=== PATIENT | male | born 1970 | race Caucasian/White ===

== ENCOUNTER 2017-11-25 22:25 | Observation (INO) ==
[2017-11-25] MEDS ORDERED: NS 1000 ML 1,000 ML ONE (22:40)
[2017-11-25] MEDS ORDERED: NS 1000 ML 1,000 ML IV ONE (23:13)
[2017-11-25 23:18] LABS: BASOPHILS # (AUTO) 0.1 X10^3/uL (0.0-0.1); BASOPHILS % (AUTO) 0.7 % (0.2-1.0); EOSINOPHILS % (AUTO) 0.2 % (0.9-2.9); HEMATOCRIT 40.7 % (42.0-54.0); HEMOGLOBIN 13.7 g/dL (13.5-18.0); LYMPHOCYTES # (AUTO) 2.6 X10^3/uL (1.3-2.9); LYMPHOCYTES % (AUTO) 18.9 % (21.0-51.0); MEAN CORPUSCULAR HEMOGLOBIN 30.4 pg (27.0-34.0); MEAN CORPUSCULAR HGB CONC 33.6 g/dL (33.0-35.0); MEAN CORPUSCULAR VOLUME 90.8 fL (80.0-100.0); MEAN PLATELET VOLUME 7.8 fL (7.4-11.0); NEUTROPHILS % (AUTO) 73.2 % (42.0-75.0); PLATELET COUNT 596 X10^3/uL (150.0-450.0); RED BLOOD COUNT 4.49 X10^6/uL (4.7-6.0); RED CELL DISTRIBUTION WIDTH 13.6 % (11.6-16.5); WHITE BLOOD COUNT 13.7 X10^3/uL (3.6-10.0)
[2017-11-25 23:41] LABS: SERUM ACETONE SMALL (NEGATIVE)
[2017-11-25 23:51] LABS: LACTIC ACID 7.1 mmol/L (0.4-2.0)
[2017-11-25 23:55] LABS: ALANINE AMINOTRANSFERASE 56 Units/L (12-78); ALBUMIN 3.2 g/dL (3.4-5.0); ALKALINE PHOSPHATASE 135 Units/L (46-116); ASPARTATE AMINO TRANSFERASE 34 Units/L (15-37); BLOOD UREA NITROGEN 22 mg/dL (7-18); CALCIUM 8.5 mg/dL (8.5-10.1); CARBON DIOXIDE 18.1 mmol/L (21-32); CHLORIDE 99 mmol/L (98-107); COR CA(FOR HYPOALB) 9.1 mg/dL (8.5-10.1); COR NA(FOR HYPERGLY) 136 mmol/L (136-145); CREATININE 1.41 mg/dL (0.70-1.30); SODIUM 135 mmol/L (136-145); TOTAL PROTEIN 6.5 g/dL (6.4-8.2); eGFR NON BLACK RACES 57 (>60)
[2017-11-25 23:58] LABS: ABG ALLEN TEST POS; ABG BASE EXCESS -2.9 mmol/L (-2.0-2.0); ABG HCO3 20.8 mmol/L (22-26)
[2017-11-26] MEDS ORDERED: NS 1000 ML 1,000 ML ONE (00:46)
[2017-11-26] MEDS ORDERED: MORPHINE SULFATE INJ 2 MG INJ IVP ONE (01:01)
[2017-11-26] MEDS ORDERED: PHENERGAN INJ 25 MG IV ONE (01:01)
--- NOTE | 2017-11-26 01:02 | DR.N/VMALE ---
HPI - Time Seen Time seen: 23:00 - Primary Care Physician Primary Care Physician: MICHAEL - HPI Comment HPI Comment: HERE VIA EMS. PATIENT HAVE LOW BACK PAIN AND IS WEAK AND SLIGHTLYY DISORIENTED. - Complaints Chief Complaint Doctors Comments: NAUSEA, VOMITING AND ELEVATED GLUCOSE. TOOK INSULIN AT HOME. Chief Complaint:: [facility] STATES, "PATIENT IS A BRITTLE INSULIN DEPENDENT DIABETIC, WHO HAS BEEN N/V FOR THE LAST WEEK AND BLOOD SUGAR VERY HIGH , WHO TOOK AN UNKNOWN AMOUNT OF INSULIN. PATIENT HAS FALLEN, C/O BACK PAIN. PATIENT HAS HAD GRADUAL WT LOSS OVER THE LAST COUPLE OF YEARS. " NOTED NO CONTUSIONS, ABRASIONS TO BACK. PATIENT SEEMS DISORIENTED SOMEWHAT, ALERT AND ATTEMPTS TO ANSWER QUESTIONS APPROPRIATELY. SKIN WARM AND DRY, FRUITY SMELL. - Reviewed Nurses Notes Reviewed: Yes - Source History Provided: Patient, EMS - Mode of Arrival Mode of Arrival: EMS - Timing Onset of Chief Complaint: 11/25/17 - Context Onset: Spontaneous Recent: None History of: Diabetes - Quality Quality: Bilious - Associated Signs and Symptoms Abdominal Pain Quality: Cramping Abdominal Pain Location: Diffuse Symptoms: Abdominal Pain PMH - PMH Past Medical History: Yes Past Medical History: Diabetes Past Surgical History: Yes Surgical History: Cholecystectomy - Family History History of Family Medical Conditions: Yes Family Medical History: Diabetes Mellitus, Cancer, [place] - Social History Does patient currently use any type of tobacco product: No Have you used tobacco products in the last 12 months: No Type of Tobacco Use: None Does any household member use tobacco: No Alcohol Use: None Do you use any recreational Drugs:: No Lives Where: Home - infectious screening Have you traveled outside the country in the last 6 months?: No Isolation: Standard ROS - Review of Systems Constitutional: Weakness, Fatigue Eyes: No Symptoms Reported ENTM: No Symptoms Reported Respiratoy: Non-Productive Cough, Short of Breath Cardiovascular: No Symptoms Reported. negative: Edema Gastrointestinal/Abdominal: Abdominal Pain, Nausea, Vomiting Genitourinary: No Symptoms Reported Neurological: Weakness Musculoskeletal: Muscle Pain Integumentary: Dryness Hematologic/Lymphatic: No Symptoms Reported Endocrine: Increased Thirst, Increased Urine. negative: [place] Psychiatric: No Symptoms Reported All Other Systems: Reviewed and Negative PE - General Limitations: Altered Mental Status General Appearance: Alert - Head Head Exam: Normal Inspection - Eyes Eye exam: Normal Appearance - ENT ENT Exam: Normal Exam - Neck Neck Exam: Normal Inspection - Chest Chest Inspection: Symmetric Chest Wall Rise - Respiratory Respiratory Exam: Normal Lung Sounds Bilat Respiratory Exam: Bilateral Rhonchi, Lower Rhonchi - Abdominal Exam Abdominal Exam: Normal Bowel Sounds, Soft. negative: Tenderness - Rectal Rectal Exam: Deferred - Exam: Male: Deferred - Extremities Extremities Exam: negative: Edema - Back Back Exam: Tenderness, Paraspinal Tenderness - Neurologic Neurological Exam: Alert, Oriented X3 (ORIENTED TO PLACE AND PERSON) - Psychiatric Psychiatric Exam: Anxious - Skin Skin Exam: Dry - Vital Signs Vitals: Temperature 98.1 F Pulse Rate [Right Brachial] 106 Pulse Rate 109 Respiratory Rate 20 Blood Pressure [Left Arm] 125/88 Blood Pressure [Right Arm] 116/83 Blood Pressure [Right Arm] 113/72 Blood Pressure 105/59 O2 Sat by Pulse Oximetry 100 MDM - Differential Diagnosis Differential Diagnosis: Considerations may Include:: Other Differential Diagnosis Comment: DKA, DEHYDRATION, GASTRITIS Course - Treatment Treatment: SEE ORSERS. - Consultation Consultation Comments: PATIENT ADMITTED BY DR. DUMONT. - Education/Counseling Educated On: Diagnosis ROR - Labs Reviewed Laboratory Results Reviewed?: Yes Result Diagrams: 11/28/17 05:50 11/28/17 05:50 - XRAY XRAY Interpreted by: Radiologist XRAY Findings: REPORT NOTED. - EKG Rhythm: ST (EKG NOTED.) - Labs Reviewed Laboratory: WBC 13.7 X10^3/uL (3.6-10.0) H 11/25/17 23:05 RBC 4.49 X10^6/uL (4.7-6.0) L 11/25/17 23:05 Hgb 13.7 g/dL (13.5-18.0) 11/25/17 23:05 Hct 40.7 % (42.0-54.0) L 11/25/17 23:05 MCV 90.8 fL (80.0-100.0) 11/25/17 23:05 MCH 30.4 pg (27.0-34.0) 11/25/17 23:05 MCHC 33.6 g/dL (33.0-35.0) 11/25/17 23:05 RDW 13.6 % (11.6-16.5) 11/25/17 23:05 Plt Count 596 X10^3/uL (150.0-450.0) H 11/25/17 23:05 MPV 7.8 fL (7.4-11.0) 11/25/17 23:05 Neut % (Auto) 73.2 % (42.0-75.0) 11/25/17 23:05 Lymph % (Auto) 18.9 % (21.0-51.0) L 11/25/17 23:05 [place] % (Auto) 7.0 % (0.0-13.0) 11/25/17 23:05 Eos % (Auto) 0.2 % (0.9-2.9) L 11/25/17 23:05 Baso % (Auto) 0.7 % (0.2-1.0) 11/25/17 23:05 Neut # (Auto) 10.0 x10^3/uL (2.2-4.8) H 11/25/17 23:05 Lymph # (Auto) 2.6 X10^3/uL (1.3-2.9) 11/25/17 23:05 [place] # (Auto) 1.0 x10^3/uL (0.3-0.8) H 11/25/17 23:05 Eos # (Auto) 0.0 x10^3/uL (0.0-0.2) 11/25/17 23:05 Baso # (Auto) 0.1 X10^3/uL (0.0-0.1) 11/25/17 23:05 Absolute Nucleated RBC 0.0 /100WBC 11/25/17 23:05 Sample Site Right radial 11/25/17 23:48 ABG pH 7.420 (7.35-7.45) 11/25/17 23:48 ABG pCO2 32.0 mmHg (35.0-45.0) L 11/25/17 23:48 ABG pO2 86.0 mmHg (80.0-100.0) 11/25/17 23:48 ABG HCO3 20.8 mmol/L (22-26) L 11/25/17 23:48 ABG O2 Saturation 97.0 % (90-100) 11/25/17 23:48 ABG Base Excess -2.9 mmol/L (-2.0-2.0) L 11/25/17 23:48 Vince Test Pos 11/25/17 23:48 A-a Gradient 24.0 mmHg 11/25/17 23:48 FiO2 21.000 11/25/17 23:48 Blood Gas Comments Greg well jts 11/25/17 23:48 Sodium 135 mmol/L (136-145) L 11/25/17 23:05 Corrected Sodium 136 mmol/L (136-145) 11/25/17 23:05 Potassium 4.2 mmol/L (3.5-5.1) 11/25/17 23:05 Chloride 99 mmol/L (98-107) 11/25/17 23:05 Carbon Dioxide 18.1 mmol/L (21-32) L 11/25/17 23:05 BUN 22 mg/dL (7-18) H 11/25/17 23:05 Creatinine 1.41 mg/dL (0.70-1.30) H 11/25/17 23:05 Est GFR (MDRD) Af Amer > 60 (>60) 11/25/17 23:05 Est GFR (MDRD) Non-Af 57 (>60) L 11/25/17 23:05 Glucose 146 mg/dL (65-99) H 11/25/17 23:05 Lactic Acid 7.1 mmol/L (0.4-2.0) H 11/25/17 23:05 Calcium 8.5 mg/dL (8.5-10.1) 11/25/17 23:05 Corrected Calcium 9.1 mg/dL (8.5-10.1) 11/25/17 23:05 Total Bilirubin 0.40 mg/dL (0.2-1.0) 11/25/17 23:05 AST 34 Units/L (15-37) 11/25/17 23:05 ALT 56 Units/L (12-78) 11/25/17 23:05 Alkaline Phosphatase 135 Units/L (46-116) H 11/25/17 23:05 C-Reactive Protein 0.50 mg/L (0-3.0) 11/25/17 23:05 Total Protein 6.5 g/dL (6.4-8.2) 11/25/17 23:05 Albumin 3.2 g/dL (3.4-5.0) L 11/25/17 23:05 Globulin 3.3 g/dL (2.5-4.5) 11/25/17 23:05 Albumin/Globulin Ratio 1.0 Ratio (1.1-2.1) L 11/25/17 23:05 Acetone, Semi-Quant Small (NEGATIVE) H 11/25/17 23:05 - Diagnosis Discharge Problem: DKA (diabetic ketoacidoses) Qualifiers: Diabetes mellitus type: type 1 Diabetes mellitus complication detail: without coma Qualified Code(s): E10.10 - Type 1 diabetes mellitus with ketoacidosis without coma - Discharge Plan Disposition: ADMITTED INPATIENT Condition: Stable
[2017-11-26] MEDS ORDERED: PHENERGAN INJ 25 MG ONE (01:04)
[2017-11-26] MEDS ORDERED: MORPHINE SULFATE INJ 2 MG INJ ONE (01:05)
[2017-11-26] MEDS ORDERED: ZOFRAN INJ 4 MG VIAL IVP ONE (02:23)
--- NOTE | 2017-11-26 03:27 | CT ---
CT abdomen pelvis without contrast Indication: Abdominal pain Findings: The lung bases are clear. There are post cholecystectomy changes. The pancreas spleen and l iver are negative. There is no obstructive uropathy or acute perinephric abnormality. There is mild s mall bowel luminal stasis without significant luminal distention. There is a moderate large rectal fecal impaction with associated constipation. The appendix is not we ll visualized however at the right lower quadrant is negative for active appearing pathology. The ske leton is negative. Impression: 1. Moderate large rectal fecal impaction with adjacent diffuse stool retention of constip ation. 2. Mild small bowel luminal stasis a sympathetic ileus is not excluded. Reported By:
[2017-11-26] MEDS: NS 1000 ML 1,000 ML IV SCH ×6 (03:34→18:11)
[2017-11-26] MEDS: HumuLIN R SC PRN ×3 (06:03→14:58)
--- NOTE | 2017-11-26 06:06 | RAD ---
Chest portable Indication shortness of breath, abdominal pain Comparison October 01, 2012 The heart and mediastinum are normal. The lungs are clear. The skeleton is unremarkable. Impression: Negative exam. Reported By:
[2017-11-26 06:07] LABS: BILIRUBIN,URINE NEGATIVE (NEGATIVE); BLOOD/HEMOGLOBIN,URINE NEGATIVE (NEGATIVE); GLUCOSE, URINE 4+ (NEGATIVE); KETONES,URINE 4+ (NEGATIVE); LEUKOCYTE ESTERASE ,URINE NEGATIVE (NEGATIVE); NITRITES,URINE NEGATIVE (NEGATIVE); PROTEIN,URINE 1+ (NEGATIVE); UROBILINOGEN,URINE NORMAL (NORMAL)
[2017-11-26 06:08] LABS: APPEARANCE,URINE CLEAR (CLEAR); COLOR,URINE YELLOW (YELLOW)
[2017-11-26 06:14] LABS: BACTERIA,URINE NEGATIVE /HPF (NEGATIVE); MUCUS,URINE FEW /HPF (NEGATIVE); RBC,URINE 0-2 /HPF (NONE SEEN); SQUAMOUS EPITHELIAL CELL,UR RARE /HPF (NEGATIVE)
[2017-11-26] MEDS: MILK OF MAGNESIA PO SCH ×2 (08:48→22:26)
[2017-11-26] MEDS: MORPHINE SULFATE INJ 2 MG INJ IVP PRN ×4 (08:49→22:26)
[2017-11-26] MEDS: ZOFRAN INJ 4 MG VIAL IVP PRN ×3 (08:50→22:26)
[2017-11-26 08:53] LABS: BASOPHILS # (AUTO) 0.1 X10^3/uL (0.0-0.1); BASOPHILS % (AUTO) 1.1 % (0.2-1.0); EOSINOPHILS # (AUTO) 0.1 x10^3/uL (0.0-0.2); EOSINOPHILS % (AUTO) 0.7 % (0.9-2.9); HEMOGLOBIN 12.7 g/dL (13.5-18.0); LYMPHOCYTES % (AUTO) 31.1 % (21.0-51.0); MEAN CORPUSCULAR HGB CONC 34.2 g/dL (33.0-35.0); MEAN CORPUSCULAR VOLUME 90.6 fL (80.0-100.0); MEAN PLATELET VOLUME 7.4 fL (7.4-11.0); MONOCYTES % (AUTO) 8.1 % (0.0-13.0); NEUTROPHILS # (AUTO) 7.6 x10^3/uL (2.2-4.8); PLATELET COUNT 508 X10^3/uL (150.0-450.0); RED BLOOD COUNT 4.08 X10^6/uL (4.7-6.0); RED CELL DISTRIBUTION WIDTH 13.7 % (11.6-16.5); WHITE BLOOD COUNT 12.9 X10^3/uL (3.6-10.0)
[2017-11-26 09:08] LABS: ALANINE AMINOTRANSFERASE 44 Units/L (12-78); ALBUMIN 2.8 g/dL (3.4-5.0); ALKALINE PHOSPHATASE 107 Units/L (46-116); ASPARTATE AMINO TRANSFERASE 27 Units/L (15-37); BLOOD UREA NITROGEN 13 mg/dL (7-18); CARBON DIOXIDE 22.7 mmol/L (21-32); CHLORIDE 102 mmol/L (98-107); COR NA(FOR HYPERGLY) 137 mmol/L (136-145); CREATININE 1.06 mg/dL (0.70-1.30); SODIUM 136 mmol/L (136-145); TOTAL PROTEIN 5.8 g/dL (6.4-8.2); eGFR NON BLACK RACES > 60 (>60)
--- NOTE | 2017-11-26 11:33 | DR.H&P ---
H&P - History & Physical for Day of: H&P Date: 11/26/17 - Chief Complaint Chief Complaint: ELEVATED BLOOD SUGAR, ADBOMINAL PAIN - History of Present Illness History of Present Illness: 47 [facility] ER ADMISSION PER EMS STATES, "PATIENT IS A BRITTLE INSULIN DEPENDENT DIABETIC, WHO HAS BEEN N/V FOR THE LAST WEEK AND BLOOD SUGAR VERY HIGH , WHO TOOK AN UNKNOWN AMOUNT OF INSULIN. PATIENT HAS FALLEN, C/O BACK PAIN. PATIENT HAS HAD GRADUAL WT LOSS OVER THE LAST COUPLE OF YEARS. " NOTED NO CONTUSIONS, ABRASIONS TO BACK. PATIENT SEEMS DISORIENTED SOMEWHAT, ALERT AND ATTEMPTS TO ANSWER QUESTIONS APPROPRIATELY. SKIN WARM AND DRY, FRUITY SMELL. PT ADMITTED FOR FURTHER EVALUATION, IV HYDRATION, BLOOD SUGAR CONTROL TREATMENT OF ABDOMINAL PAIN AND N/V. - Past Medical History Past Medical History: Diabetes Additional Medical History: Opiate abuse, Diabetic Neuropathy - Past Surgical History Surgical History: Cholecystectomy - Family History Family Medical History: Diabetes Mellitus, Cancer, [place] - Social History Does patient currently use any type of tobacco product: No Have you used tobacco products in the last 12 months: No Type of Tobacco Use: None How many years tobacco product used: 30 Does any household member use tobacco: No Alcohol Use: None Drug Use: None - Medications Home Medications: No Known Drug Allergies Allergy (Verified 11/25/17 22:52) CONTINUE taking the following medications insulin detemir U-100 [Levemir U-100 Insulin] 15 unit SUB-Q DAILY 11/26/17 [ History] temazepam [Restoril] 30 mg PO HS PRN 11/26/17 [History] - Review of Systems Constitutional: Weakness Eyes: No Symptoms Reported ENT: No Symptoms Reported Respiratory: No Symptoms Reported Cardiovascular: No Symptoms Reported Gastrointestinal: Nausea, Vomiting, Abdominal Pain, Constipation Genitourinary: Frequency Musculoskeletal: Back Pain Skin: No Symptoms Reported Neurological: Weakness - Physical Exam Vital Signs: Temperature 98.9 F Pulse Rate [Right Brachial] 100 Pulse Rate 109 Respiratory Rate 18 Blood Pressure [Left Arm] 125/88 Blood Pressure [Right Arm] 105/58 Blood Pressure [Right Arm] 113/72 Blood Pressure 105/59 O2 Sat by Pulse Oximetry 99 Oriented: Normal Eyes: Normal Ear: Normal Nose: Normal Throat: Dry Respiratory: RLL Diminished, LLL Diminished Cardiovascular: Normal. negative: Edema : Normal Auscultation: Bowel Sounds: Decreased Tenderness: Epigastric, Periumbilical, Suprapubic Skin: Decreased Turgur Musculoskeletal: Back:Lumbar Psychiatric: Anxiety Affect: Anxious Speech Pattern: Clear, Appropriate - Assessment/Plan (1) Abdominal pain Status: Acute Plan: ADMIT IV HYDRATION. PAIN AND NAUSEA CONTROL, CT ABD DONE IN ER. BLOOD SUGAR CONTROL. ICU, CARDIAC MONITORING, ACETONE LEVELS. REPEAT LACTIC ACID, BLOOD CULTURES, AM KUB. TREAT CONSITIPATION, IV ZOSYN (2) DKA (diabetic ketoacidoses) Status: Acute (3) Anxiety Status: Chronic (4) Diabetes mellitus Status: Chronic - Allergies Allergies/Adverse Reactions: Allergies Allergy/AdvReac Type Severity Reaction Status Date / Time No Known Drug Allergies Allergy Verified 11/25/17 22:52
[2017-11-26] MEDS ORDERED: ZOSYN VIAL 3.375 GRAMS IV ONE (12:34)
[2017-11-26] MEDS ORDERED: NS 100 ML IV + SPIKE MINIBAG* 100 ML IV ONE (12:34)
[2017-11-26] MEDS: PROTONIX INJ 40 MG VIAL IVP SCH (12:42)
[2017-11-26] MEDS: ZOSYN VIAL 3.375 GRAMS 3.375 G in NS 100 ML IV + SPIKE MINIBAG* 100 ML IV SCH ×2 (13:04→22:25)
[2017-11-26 13:14] LABS: BILIRUBIN,URINE NEGATIVE (NEGATIVE); BLOOD/HEMOGLOBIN,URINE NEGATIVE (NEGATIVE); GLUCOSE, URINE 4+ (NEGATIVE); KETONES,URINE 4+ (NEGATIVE); LEUKOCYTE ESTERASE ,URINE NEGATIVE (NEGATIVE); NITRITES,URINE NEGATIVE (NEGATIVE); PROTEIN,URINE NEGATIVE (NEGATIVE); UROBILINOGEN,URINE NORMAL (NORMAL)
[2017-11-26 13:15] LABS: APPEARANCE,URINE CLEAR (CLEAR); COLOR,URINE YELLOW (YELLOW)
[2017-11-26 21:37] VITALS: BMI 19.0
[2017-11-26] MEDS: COLACE CAP 100 MG PO SCH (22:26)
[2017-11-27] MEDS: NS 1000 ML 1,000 ML IV SCH ×5 (01:30→16:45)
[2017-11-27] MEDS: HumuLIN R SC PRN ×3 (03:30→18:13)
[2017-11-27] MEDS: MORPHINE SULFATE INJ 2 MG INJ IVP PRN ×5 (03:37→23:32)
[2017-11-27 05:16] LABS: BASOPHILS # (AUTO) 0.1 X10^3/uL (0.0-0.1); BASOPHILS % (AUTO) 1.2 % (0.2-1.0); EOSINOPHILS # (AUTO) 0.1 x10^3/uL (0.0-0.2); EOSINOPHILS % (AUTO) 0.7 % (0.9-2.9); HEMATOCRIT 39.6 % (42.0-54.0); HEMOGLOBIN 13.3 g/dL (13.5-18.0); LYMPHOCYTES # (AUTO) 2.2 X10^3/uL (1.3-2.9); LYMPHOCYTES % (AUTO) 22.3 % (21.0-51.0); MEAN CORPUSCULAR HGB CONC 33.5 g/dL (33.0-35.0); MEAN CORPUSCULAR VOLUME 92.3 fL (80.0-100.0); MEAN PLATELET VOLUME 7.9 fL (7.4-11.0); MONOCYTES # (AUTO) 0.5 x10^3/uL (0.3-0.8); MONOCYTES % (AUTO) 4.8 % (0.0-13.0); PLATELET COUNT 403 X10^3/uL (150.0-450.0); RED BLOOD COUNT 4.29 X10^6/uL (4.7-6.0); RED CELL DISTRIBUTION WIDTH 13.4 % (11.6-16.5); WHITE BLOOD COUNT 9.8 X10^3/uL (3.6-10.0)
[2017-11-27 05:21] LABS: ALANINE AMINOTRANSFERASE 42 Units/L (12-78); ALBUMIN 2.8 g/dL (3.4-5.0); ALKALINE PHOSPHATASE 107 Units/L (46-116); ASPARTATE AMINO TRANSFERASE 33 Units/L (15-37); BLOOD UREA NITROGEN 10 mg/dL (7-18); CALCIUM 7.8 mg/dL (8.5-10.1); CARBON DIOXIDE 23.4 mmol/L (21-32); CHLORIDE 101 mmol/L (98-107); COR CA(FOR HYPOALB) 8.8 mg/dL (8.5-10.1); COR NA(FOR HYPERGLY) 140 mmol/L (136-145); CREATININE 0.79 mg/dL (0.70-1.30); SODIUM 135 mmol/L (136-145); eGFR NON BLACK RACES > 60 (>60)
[2017-11-27] MEDS: ZOSYN VIAL 3.375 GRAMS 3.375 G in NS 100 ML IV + SPIKE MINIBAG* 100 ML IV SCH ×3 (05:45→21:49)
--- NOTE | 2017-11-27 07:47 | RAD ---
Examination: KUB History: Pain and constipation Comparison reference abdomen CT, 11/26/2017 Findings: There is relative excess of fecal material in the left colon without definite obstruction o r mass formation. No visceral enlargement is noted. There are surgical clips in the right upper quadr ant. Impression: No definite obstruction or ileus. Suspect constipation. Correlate with history. Reported By:
[2017-11-27] MEDS: PROTONIX INJ 40 MG VIAL IVP SCH (08:36)
[2017-11-27] MEDS: MILK OF MAGNESIA PO SCH ×2 (08:36→21:49)
[2017-11-27] MEDS: ZOFRAN INJ 4 MG VIAL IVP PRN ×2 (08:41→18:57)
[2017-11-27] MEDS: COLACE CAP 100 MG PO SCH (21:49)
[2017-11-28] MEDS: NS 1000 ML 1,000 ML IV SCH (01:33)
[2017-11-28] MEDS: HumuLIN R SC PRN (01:48)
[2017-11-28] MEDS: ZOFRAN INJ 4 MG VIAL IVP PRN ×2 (01:48→09:21)
[2017-11-28] MEDS: MORPHINE SULFATE INJ 2 MG INJ IVP PRN ×2 (05:37→09:20)
[2017-11-28] MEDS: ZOSYN VIAL 3.375 GRAMS 3.375 G in NS 100 ML IV + SPIKE MINIBAG* 100 ML IV SCH (05:37)
--- NOTE | 2017-11-28 05:58 | RAD ---
The Examination: KUB History: Pain, constipation Comparison reference 11/27/2017 Findings: There is slight interval increase in nonobstructive gaseous distention of small and large b owel. No excessive feces is now noted. Surgical clips right upper abdomen. No mass formation or free fluid identified. Impression: Mild nonobstructive intestinal distention. The Reported By:
[2017-11-28 06:25] LABS: BASOPHILS # (AUTO) 0.1 X10^3/uL (0.0-0.1); BASOPHILS % (AUTO) 0.7 % (0.2-1.0); EOSINOPHILS # (AUTO) 0.1 x10^3/uL (0.0-0.2); EOSINOPHILS % (AUTO) 1.1 % (0.9-2.9); HEMATOCRIT 36.7 % (42.0-54.0); HEMOGLOBIN 12.6 g/dL (13.5-18.0); LYMPHOCYTES # (AUTO) 2.6 X10^3/uL (1.3-2.9); LYMPHOCYTES % (AUTO) 34.1 % (21.0-51.0); MEAN CORPUSCULAR HEMOGLOBIN 31.1 pg (27.0-34.0); MEAN CORPUSCULAR HGB CONC 34.3 g/dL (33.0-35.0); MEAN CORPUSCULAR VOLUME 90.7 fL (80.0-100.0); MEAN PLATELET VOLUME 7.7 fL (7.4-11.0); MONOCYTES # (AUTO) 0.5 x10^3/uL (0.3-0.8); MONOCYTES % (AUTO) 6.9 % (0.0-13.0); NEUTROPHILS # (AUTO) 4.4 x10^3/uL (2.2-4.8); NEUTROPHILS % (AUTO) 57.2 % (42.0-75.0); PLATELET COUNT 397 X10^3/uL (150.0-450.0); RED BLOOD COUNT 4.05 X10^6/uL (4.7-6.0); RED CELL DISTRIBUTION WIDTH 13.4 % (11.6-16.5); WHITE BLOOD COUNT 7.7 X10^3/uL (3.6-10.0)
[2017-11-28 06:27] LABS: SERUM ACETONE SMALL (NEGATIVE)
[2017-11-28 06:46] LABS: LACTIC ACID 1.3 mmol/L (0.4-2.0)
[2017-11-28 07:05] LABS: ALANINE AMINOTRANSFERASE 33 Units/L (12-78); ALBUMIN 2.7 g/dL (3.4-5.0); ALKALINE PHOSPHATASE 94 Units/L (46-116); ASPARTATE AMINO TRANSFERASE 23 Units/L (15-37); BLOOD UREA NITROGEN 8 mg/dL (7-18); CALCIUM 8.1 mg/dL (8.5-10.1); CARBON DIOXIDE 25.6 mmol/L (21-32); CHLORIDE 103 mmol/L (98-107); COR CA(FOR HYPOALB) 9.1 mg/dL (8.5-10.1); COR NA(FOR HYPERGLY) 136 mmol/L (136-145); CREATININE 0.62 mg/dL (0.70-1.30); SODIUM 135 mmol/L (136-145); TOTAL PROTEIN 5.5 g/dL (6.4-8.2); eGFR NON BLACK RACES > 60 (>60)
[2017-11-28] MEDS: PROTONIX INJ 40 MG VIAL IVP SCH (09:14)
[2017-11-28] MEDS: MILK OF MAGNESIA PO SCH (09:15)
[2017-11-28 09:28] VITALS: BP 115/77
--- NOTE | 2017-12-04 08:17 | PCM.DCPLAN ---
Discharge Summary - Admission Date Date of Admission: 11/26/17 - Discharge Date Discharge Date: 11/28/17 - Admission Diagnoses (1) Abdominal pain Status: Acute (2) DKA (diabetic ketoacidoses) Status: Acute (3) Diabetes mellitus Status: Chronic - Discharge Diagnoses Discharge Diagnosis: SAME ADMISSION DIAGNOSIS - Discharge Medications Discharge Medications: Home Medication List insulin detemir U-100 [Levemir U-100 Insulin] 15 unit SUB-Q DAILY 11/26/17 [ History] temazepam [Restoril] 30 mg PO HS PRN 11/26/17 [History] Prescriptions: - Hospital Course Vital Signs: Temperature 98.8 F Pulse Rate [Right Brachial] 82 Pulse Rate 109 Respiratory Rate 15 Blood Pressure [Left Arm] 115/77 Blood Pressure [Right Arm] 124/75 Blood Pressure [Right Arm] 113/72 Blood Pressure 105/59 O2 Sat by Pulse Oximetry 98 Latest Lab Results: Laboratory Last Values WBC 7.7 X10^3/uL (3.6-10.0) 11/28/17 05:50 RBC 4.05 X10^6/uL (4.7-6.0) L 11/28/17 05:50 Hgb 12.6 g/dL (13.5-18.0) L 11/28/17 05:50 Hct 36.7 % (42.0-54.0) L 11/28/17 05:50 MCV 90.7 fL (80.0-100.0) 11/28/17 05:50 MCH 31.1 pg (27.0-34.0) 11/28/17 05:50 MCHC 34.3 g/dL (33.0-35.0) 11/28/17 05:50 RDW 13.4 % (11.6-16.5) 11/28/17 05:50 Plt Count 397 X10^3/uL (150.0-450.0) 11/28/17 05:50 MPV 7.7 fL (7.4-11.0) 11/28/17 05:50 Neut % (Auto) 57.2 % (42.0-75.0) 11/28/17 05:50 Lymph % (Auto) 34.1 % (21.0-51.0) 11/28/17 05:50 [place] % (Auto) 6.9 % (0.0-13.0) 11/28/17 05:50 Eos % (Auto) 1.1 % (0.9-2.9) 11/28/17 05:50 Baso % (Auto) 0.7 % (0.2-1.0) 11/28/17 05:50 Neut # (Auto) 4.4 x10^3/uL (2.2-4.8) 11/28/17 05:50 Lymph # (Auto) 2.6 X10^3/uL (1.3-2.9) 11/28/17 05:50 [place] # (Auto) 0.5 x10^3/uL (0.3-0.8) 11/28/17 05:50 Eos # (Auto) 0.1 x10^3/uL (0.0-0.2) 11/28/17 05:50 Baso # (Auto) 0.1 X10^3/uL (0.0-0.1) 11/28/17 05:50 Absolute Nucleated RBC 0.0 /100WBC 11/28/17 05:50 Sample Site Right radial 11/25/17 23:48 ABG pH 7.420 (7.35-7.45) 11/25/17 23:48 ABG pCO2 32.0 mmHg (35.0-45.0) L 11/25/17 23:48 ABG pO2 86.0 mmHg (80.0-100.0) 11/25/17 23:48 ABG HCO3 20.8 mmol/L (22-26) L 11/25/17 23:48 ABG O2 Saturation 97.0 % (90-100) 11/25/17 23:48 ABG Base Excess -2.9 mmol/L (-2.0-2.0) L 11/25/17 23:48 Vince Test Pos 11/25/17 23:48 A-a Gradient 24.0 mmHg 11/25/17 23:48 FiO2 21.000 11/25/17 23:48 Blood Gas Comments Greg well jts 11/25/17 23:48 Sodium 135 mmol/L (136-145) L 11/28/17 05:50 Corrected Sodium 136 mmol/L (136-145) 11/28/17 05:50 Potassium 3.9 mmol/L (3.5-5.1) 11/28/17 05:50 Chloride 103 mmol/L (98-107) 11/28/17 05:50 Carbon Dioxide 25.6 mmol/L (21-32) 11/28/17 05:50 BUN 8 mg/dL (7-18) 11/28/17 05:50 Creatinine 0.62 mg/dL (0.70-1.30) L 11/28/17 05:50 Est GFR (MDRD) Af Amer > 60 (>60) 11/28/17 05:50 Est GFR (MDRD) Non-Af > 60 (>60) 11/28/17 05:50 Glucose 156 mg/dL (65-99) H 11/28/17 05:50 POC Glucose (mg/dL) 142 mg/dL (65-99) H 11/28/17 05:33 Lactic Acid 1.3 mmol/L (0.4-2.0) 11/28/17 05:50 Calcium 8.1 mg/dL (8.5-10.1) L 11/28/17 05:50 Corrected Calcium 9.1 mg/dL (8.5-10.1) 11/28/17 05:50 Total Bilirubin 0.60 mg/dL (0.2-1.0) 11/28/17 05:50 AST 23 Units/L (15-37) 11/28/17 05:50 ALT 33 Units/L (12-78) 11/28/17 05:50 Alkaline Phosphatase 94 Units/L (46-116) 11/28/17 05:50 C-Reactive Protein 0.50 mg/L (0-3.0) 11/25/17 23:05 Total Protein 5.5 g/dL (6.4-8.2) L 11/28/17 05:50 Albumin 2.7 g/dL (3.4-5.0) L 11/28/17 05:50 Globulin 2.8 g/dL (2.5-4.5) 11/28/17 05:50 Albumin/Globulin Ratio 1.0 Ratio (1.1-2.1) L 11/28/17 05:50 Specimen Type Clean catch urine 11/26/17 12:50 Urine Color Yellow (YELLOW) 11/26/17 12:50 Urine Appearance Clear (CLEAR) 11/26/17 12:50 Urine pH 5.0 (5.0 - 8.0) 11/26/17 12:50 Ur Specific [place] 1.025 (1.000-1.030) 11/26/17 12:50 Urine Protein Negative (NEGATIVE) 11/26/17 12:50 Urine Glucose (UA) 4+ (NEGATIVE) 11/26/17 12:50 Urine Ketones 4+ (NEGATIVE) 11/26/17 12:50 Urine Occult Blood Negative (NEGATIVE) 11/26/17 12:50 Urine Nitrite Negative (NEGATIVE) 11/26/17 12:50 Urine Bilirubin Negative (NEGATIVE) 11/26/17 12:50 Urine Urobilinogen Normal (NORMAL) 11/26/17 12:50 Ur Leukocyte Esterase Negative (NEGATIVE) 11/26/17 12:50 Urine RBC 0-2 /HPF (NONE SEEN) 11/26/17 06:00 Urine WBC 0-2 /HPF (NONE SEEN) 11/26/17 06:00 Ur Squamous Epith Cells Rare /HPF (NEGATIVE) 11/26/17 06:00 Urine Bacteria Negative /HPF (NEGATIVE) 11/26/17 06:00 Urine Mucus Few /HPF (NEGATIVE) 11/26/17 06:00 Ur Culture Indicated? No/not indicated 11/26/17 06:00 Acetone, Semi-Quant Small (NEGATIVE) H 11/28/17 05:50 Hospital Course: 47 [facility] ER ADMISSION PER EMS STATES, "PATIENT IS A BRITTLE INSULIN DEPENDENT DIABETIC, WHO HAS BEEN N/V FOR THE LAST WEEK AND BLOOD SUGAR VERY HIGH , WHO TOOK AN UNKNOWN AMOUNT OF INSULIN. PATIENT HAS FALLEN, C/O BACK PAIN. PATIENT HAS HAD GRADUAL WT LOSS OVER THE LAST COUPLE OF YEARS. " NOTED NO CONTUSIONS, ABRASIONS TO BACK. PATIENT SEEMS DISORIENTED SOMEWHAT, ALERT AND ATTEMPTS TO ANSWER QUESTIONS APPROPRIATELY. SKIN WARM AND DRY, FRUITY SMELL. PT ADMITTED FOR FURTHER EVALUATION, IV HYDRATION, BLOOD SUGAR CONTROL TREATMENT OF ABDOMINAL PAIN AND N/V. PATIENT ON 11/28/17 SIGNED OUT AMA. - Discharge Plan Disposition: 07 AGAINST MEDICAL ADVICE Condition: Stable - Follow ups/Referrals Follow ups/Referrals: JOSUE RODRIGUEZ [STAFF PHYSICIAN] - 3 days ELVA DUMONT [Primary Care Provider] - 1 WEEK - Instructions
== END 2017-11-28 10:36 | disposition left against medical advice (07) ==
LOC: ER 22:30 → MED/SURG 22:30 → ICU 11-26 12:09
PROVIDERS: ADMIT Internal Medicine; ATTEND Internal Medicine
DX: M54.89 Other dorsalgia; E10.10 Type 1 diabetes mellitus with ketoacidosis without coma; E86.0 Dehydration
CPT/HCPCS: 36415; 36600; 70544; 71010; 71045; 74000; 74018; 74176; 80053; 81001; 81003; 82009; 82803; 83605; 85025; 86140; 87040; 93005; 93010; 96365; 96367; 96374; 96375; 99284; A4222; C9113; G0378; J1815; J2270; J2405; J2543; J2550; J7030; J7050

== ENCOUNTER 2019-03-07 19:39 | Inpatient (IN) ==
[2019-03-07] MEDS ORDERED: NS 1000 ML 1,000 ML IV ONE ×2 (20:10→22:10)
[2019-03-07] MEDS ORDERED: NS 1000 ML 1,000 ML ONE ×2 (20:11→22:19)
[2019-03-07] MEDS ORDERED: ZOFRAN INJ 4 MG VIAL ONE (20:11)
[2019-03-07] MEDS ORDERED: ZOFRAN INJ 4 MG VIAL IVP ONE (20:11)
[2019-03-07] MEDS ORDERED: HumuLIN R IV ONE (20:12)
[2019-03-07 20:16] LABS: BASOPHILS # (AUTO) 0.1 X10^3/uL (0.0-0.1); BASOPHILS % (AUTO) 0.5 % (0.2-1.0); EOSINOPHILS % (AUTO) 0.3 % (0.9-2.9); HEMATOCRIT 47.8 % (42.0-54.0); LYMPHOCYTES % (AUTO) 29.9 % (21.0-51.0); MEAN CORPUSCULAR HEMOGLOBIN 31.9 pg (27.0-34.0); MEAN CORPUSCULAR HGB CONC 31.3 g/dL (33.0-35.0); MEAN CORPUSCULAR VOLUME 101.9 fL (80.0-100.0); MEAN PLATELET VOLUME 7.9 fL (7.4-11.0); MONOCYTES # (AUTO) 0.6 x10^3/uL (0.3-0.8); NEUTROPHILS # (AUTO) 6.4 x10^3/uL (2.2-4.8); NEUTROPHILS % (AUTO) 63.3 % (42.0-75.0); PLATELET COUNT 588 X10^3/uL (150.0-450.0); RED CELL DISTRIBUTION WIDTH 13.5 % (11.6-16.5); WHITE BLOOD COUNT 10.2 X10^3/uL (3.6-10.0)
[2019-03-07 20:28] LABS: ALANINE AMINOTRANSFERASE 124 Units/L (12-78); ALBUMIN 3.8 g/dL (3.4-5.0); ALKALINE PHOSPHATASE 221 Units/L (46-116); ASPARTATE AMINO TRANSFERASE 61 Units/L (15-37); BLOOD UREA NITROGEN 30 mg/dL (7-18); CALCIUM 9.9 mg/dL (8.5-10.1); CHLORIDE 82 mmol/L (98-107); CREATININE 1.67 mg/dL (0.70-1.30); SODIUM 127 mmol/L (136-145); TOTAL PROTEIN 7.8 g/dL (6.4-8.2); eGFR NON BLACK RACES 47 (>60)
[2019-03-07 20:37] LABS: CARBON DIOXIDE 7.5 mmol/L (21-32)
--- NOTE | 2019-03-07 20:42 | DR.GENAD ---
HPI - PCP Primary Care Physician: NONE - HPI Comment HPI Comment: He started feeling sick this morning and started throwing up this afternoon; he cannot remember if he had his insulin today; no cp, fevers, chills or diarrhea; he has had [place] episodes of [place] [facility] [place] was diagnosed six [place] ago - Complaint/Symptoms Chief Complaint:: DKA Self Treatment fo Chief Complaint: NONE. - Source History Provided: Patient, Family Member - Mode of Arrival Mode of Arrival: Wheelchair - Timing Onset of Chief Complaint: 03/07/19 PMH - PMH Past Medical History: Yes Past Medical History: Diabetes Past Medical History Comment: KIDNEY ISSUES, GASTROPARESIS. PT UNSURE OF DIAGNOSIS Past Surgical History: Yes Surgical History: Cholecystectomy - Family History History of Family Medical Conditions: Yes Family Medical History: Diabetes Mellitus, Cancer, [place] - Social History Does patient currently use any type of tobacco product: Yes Have you used tobacco products in the last 12 months: Yes Type of Tobacco Use: Cigarettes How many years tobacco product used: 30 Does any household member use tobacco: Yes Alcohol Use: None Do you use any recreational Drugs:: No Lives With: Family Lives Where: Home - infectious screening In the last 2 months have you had wt loss of >10#?: NO Have you had fever, night sweats or hemotysis?: No Have you traveled outside the country in the last 6 months?: No Isolation: Standard ROS - Review of Systems Constitutional: See HPI, Malaise, Weakness Eyes: No Symptoms Reported, Eye Pain Respiratoy: No Symptoms Reported Cardiovascular: No Symptoms Reported Gastrointestinal/Abdominal: See HPI, Abdominal Pain Genitourinary: No Symptoms Reported Neurological: No Symptoms Reported Musculoskeletal: No Symptoms Reported Integumentary: No Symptoms Reported Hematologic/Lymphatic: No Symptoms Reported Endocrine: No Symptoms Reported Psychiatric: Anxiety PE - General Limitations: Other General Appearance: Other (decreased interaction) - Head Head Exam: Normal Inspection, Atraumatic - Eyes Eye exam: Normal Appearance, PERRL - ENT ENT Exam: Normal Exam - Neck Neck Exam: Normal Inspection, Full ROM - Chest Chest Inspection: Normal Inspection, Symmetric Chest Wall Rise - Respiratory Respiratory Exam: Normal Lung Sounds Bilat Respiratory Exam: Bilateral Clear to Auscultation - Cardiovascular Cardiovascular Exam: Regular Rate, Normal Rhythm - Abdominal Exam Abdominal Exam: Normal Inspection, Normal Bowel Sounds, Soft, Tenderness (diffusely) Abdominal Tenderness: Diffuse - Extremities Extremities Exam: Normal Inspection, Full ROM - Neurologic Neurological Exam: Alert - Psychiatric Psychiatric Exam: Flat Affect - Skin Skin Exam: Warm - Vital Signs Vitals: Temperature 97.2 F Pulse Rate [Left] 118 Pulse Rate 119 Respiratory Rate 31 Blood Pressure [Left Arm] 121/59 Blood Pressure 126/84 O2 Sat by Pulse Oximetry 100 Course - Reevaluation 1st: Improved (eating ice, more coherent, nausea improved) ROR - Labs Reviewed Laboratory Results Reviewed?: Yes Result Diagrams: 03/07/19 20:05 03/07/19 20:05 - Other Results Comments: Status post right subclavian catheter placement in good position with no. pneumothorax. Stable chronic lung changes with no infiltrate or effusion. - XRAY XRAY Interpreted by: Radiologist - Labs Reviewed Laboratory: WBC 10.2 X10^3/uL (3.6-10.0) H 03/07/19 20:05 RBC 4.70 X10^6/uL (4.7-6.0) 03/07/19 20:05 Hgb 15.0 g/dL (13.5-18.0) 03/07/19 20:05 Hct 47.8 % (42.0-54.0) 03/07/19 20:05 MCV 101.9 fL (80.0-100.0) H 03/07/19 20:05 MCH 31.9 pg (27.0-34.0) 03/07/19 20:05 MCHC 31.3 g/dL (33.0-35.0) L 03/07/19 20:05 RDW 13.5 % (11.6-16.5) 03/07/19 20:05 Plt Count 588 X10^3/uL (150.0-450.0) H 03/07/19 20:05 MPV 7.9 fL (7.4-11.0) 03/07/19 20:05 Neut % (Auto) 63.3 % (42.0-75.0) 03/07/19 20:05 Lymph % (Auto) 29.9 % (21.0-51.0) 03/07/19 20:05 [place] % (Auto) 6.0 % (0.0-13.0) 03/07/19 20:05 Eos % (Auto) 0.3 % (0.9-2.9) L 03/07/19 20:05 Baso % (Auto) 0.5 % (0.2-1.0) 03/07/19 20:05 Neut # (Auto) 6.4 x10^3/uL (2.2-4.8) H 03/07/19 20:05 Lymph # (Auto) 3.0 X10^3/uL (1.3-2.9) H 03/07/19 20:05 [place] # (Auto) 0.6 x10^3/uL (0.3-0.8) 03/07/19 20:05 Eos # (Auto) 0.0 x10^3/uL (0.0-0.2) 03/07/19 20:05 Baso # (Auto) 0.1 X10^3/uL (0.0-0.1) 03/07/19 20:05 Absolute Nucleated RBC 0.0 /100WBC 03/07/19 20:05 Sodium 127 mmol/L (136-145) L 03/07/19 20:05 Corrected Sodium 147 mmol/L (136-145) H 03/07/19 20:05 Potassium 4.7 mmol/L (3.5-5.1) 03/07/19 20:05 Chloride 82 mmol/L (98-107) L 03/07/19 20:05 Carbon Dioxide 7.5 mmol/L (21-32) L* 03/07/19 20:05 BUN 30 mg/dL (7-18) H 03/07/19 20:05 Creatinine 1.67 mg/dL (0.70-1.30) H 03/07/19 20:05 Est GFR (MDRD) Af Amer 57 (>60) L 03/07/19 20:05 Est GFR (MDRD) Non-Af 47 (>60) L 03/07/19 20:05 Glucose 936 mg/dL (65-99) H* 03/07/19 20:05 POC Glucose (mg/dL) > 600 mg/dL (65-99) 03/07/19 22:21 Calcium 9.9 mg/dL (8.5-10.1) 03/07/19 20:05 Corrected Calcium TNP 03/07/19 20:05 Total Bilirubin 0.70 mg/dL (0.2-1.0) 03/07/19 20:05 AST 61 Units/L (15-37) H 03/07/19 20:05 ALT 124 Units/L (12-78) H 03/07/19 20:05 Alkaline Phosphatase 221 Units/L (46-116) H 03/07/19 20:05 Total Protein 7.8 g/dL (6.4-8.2) 03/07/19 20:05 Albumin 3.8 g/dL (3.4-5.0) 03/07/19 20:05 Globulin 4.0 g/dL (2.5-4.5) 03/07/19 20:05 Albumin/Globulin Ratio 1.0 Ratio (1.1-2.1) L 03/07/19 20:05 Specimen Type Clean catch urine 03/07/19 22:03 Urine Color Pale yellow (YELLOW) 03/07/19 22: Urine Appearance Clear (CLEAR) 03/07/19 22: Urine pH 5.0 (5.0 - 8.0) 03/07/19 22:03 Ur Specific [place] 1.015 (1.000-1.030) 03/07/19 22:03 Urine Protein 2+ (NEGATIVE) 03/07/19 22: Urine Glucose (UA) 4+ (NEGATIVE) 03/07/19 22: Urine Ketones 4+ (NEGATIVE) 03/07/19 22:03 Urine Occult Blood Negative (NEGATIVE) 03/07/19 22: Urine Nitrite Negative (NEGATIVE) 03/07/19 22: Urine Bilirubin Negative (NEGATIVE) 03/07/19 22:03 Urine Urobilinogen Normal (NORMAL) 03/07/19 22:03 Ur Leukocyte Esterase Negative (NEGATIVE) 03/07/19 22:03 Urine RBC None seen /HPF (0-3) 03/07/19 22:03 Urine WBC None seen /HPF (0-5) 03/07/19 22:03 Ur Squamous Epith Cells Rare /HPF (NEGATIVE) 03/07/19 22:03 Urine Bacteria Negative /HPF (NEGATIVE) 03/07/19 22:03 Ur Culture Indicated? No/not indicated 03/07/19 22:03 Acetone, Semi-Quant Moderate (NEGATIVE) H 10/02/19 20:05 Opioid - Opioid Risk Tool Age (Abel box if 16-45): No Total: 0 Total Score Risk Category: Low Risk - Diagnosis Discharge Problem: Anxiety, Dehydration DKA (diabetic ketoacidoses) Qualifiers: Diabetes mellitus type: type 1 Diabetes mellitus complication detail: without coma Qualified Code(s): E10.10 - Type 1 diabetes mellitus with ketoacidosis without coma Type 1 diabetes mellitus Qualifiers: Diabetes mellitus complication status: with kidney complications Diabetes mellitus complication detail: with chronic kidney disease Chronic kidney disease stage: stage 2 (mild) Qualified Code(s): E10.22 - Type 1 diabetes mellitus with diabetic chronic kidney disease - Discharge Plan Disposition: ADMITTED INPATIENT Condition: Stable - Follow ups/Referrals Follow ups/Referrals: NFD,None [Primary Care Provider] - 3 days - Instructions Instructions: Type 1 Diabetes Mellitus, Diagnosis, Adult
[2019-03-07 20:45] LABS: COR NA(FOR HYPERGLY) 147 mmol/L (136-145)
[2019-03-07] MEDS ORDERED: HumuLIN R ONE ×2 (20:45→23:57)
[2019-03-07] MEDS ORDERED: ATIVAN INJ 2 MG VIAL ONE (21:12)
[2019-03-07] MEDS ORDERED: ATIVAN INJ 2 MG VIAL IVP ONE (21:15)
[2019-03-07] MEDS ORDERED: XYLOCAINE 1 % (PLAIN) ONE (21:16)
[2019-03-07] MEDS ORDERED: XYLOCAINE 1 % (PLAIN) IM ONE (21:17)
--- NOTE | 2019-03-07 21:46 | RAD ---
Chest, one view Indication: Central line placement Comparison: 09/04/2018 Findings/Impression: Heart is normal in size. No focal infiltrate or significant effusion is identified. Right subclavian CVL is well positioned, terminating over the cavoatrial junction. An apparent pleural line along the lateral right lung apex is felt to represent skin fold artifact. However, small pneumothorax should be excluded and repeat chest radiograph is recommended for further evaluation. Reported By:
[2019-03-07 22:17] LABS: BILIRUBIN,URINE NEGATIVE (NEGATIVE); BLOOD/HEMOGLOBIN,URINE NEGATIVE (NEGATIVE); GLUCOSE, URINE 4+ (NEGATIVE); KETONES,URINE 4+ (NEGATIVE); LEUKOCYTE ESTERASE ,URINE NEGATIVE (NEGATIVE); NITRITES,URINE NEGATIVE (NEGATIVE); PROTEIN,URINE 2+ (NEGATIVE); UROBILINOGEN,URINE NORMAL (NORMAL)
[2019-03-07 22:27] LABS: APPEARANCE,URINE CLEAR (CLEAR); COLOR,URINE PALE YELLOW (YELLOW)
[2019-03-07 22:28] LABS: BACTERIA,URINE NEGATIVE /HPF (NEGATIVE); RBC,URINE NONE SEEN /HPF (0-3); SQUAMOUS EPITHELIAL CELL,UR RARE /HPF (NEGATIVE)
--- NOTE | 2019-03-07 22:29 | RAD ---
History: Pain Exam: Chest x-ray Comparison: 11/25/2017 Technique: Portable AP chest Findings: The heart is normal. The pulmonary vessels are normal. The lungs are mildly hyperinflated. No consolidation or effusion is seen. There is a subclavian catheter on the right with the tip in the distal superior vena cava. No consolidation, effusion, or pneumothorax is seen. IMPRESSION: Status post right subclavian catheter placement in good position with no pneumothorax. Stable chronic lung changes with no infiltrate or effusion. Reported By:
[2019-03-07] MEDS ORDERED: SODIUM BICARBONATE 8.4% INJ ADULT IVP ONE (23:02)
[2019-03-07 23:37] LABS: ABG BASE EXCESS -18.4 mmol/L (-2.0-2.0)
[2019-03-07 23:39] LABS: ABG ALLEN TEST POS; ABG HCO3 8.4 mmol/L (22-26)
[2019-03-07] MEDS ORDERED: NS 100 ML IV 100 ML IV ONE (23:56)
[2019-03-08] MEDS ORDERED: NS 1000 ML 1,000 ML ONE
[2019-03-08 00:09] LABS: BLOOD UREA NITROGEN 27 mg/dL (7-18); CALCIUM 8.5 mg/dL (8.5-10.1); CHLORIDE 91 mmol/L (98-107); CKMB % 2.2 % (<4); CREATINE KINASE 46 Units/L (39-308); CREATINE KINASE MB < 1.0 ng/mL (0-4.0); CREATININE 1.72 mg/dL (0.70-1.30); SODIUM 131 mmol/L (136-145); TROPONIN I < 0.02 ng/mL (0-1.5); eGFR NON BLACK RACES 45 (>60)
[2019-03-08 00:11] LABS: CARBON DIOXIDE 7.4 mmol/L (21-32)
[2019-03-08] MEDS: NS 1000 ML 1,000 ML IV SCH ×4 (00:11→18:58)
[2019-03-08 00:13] LABS: COR NA(FOR HYPERGLY) 145 mmol/L (136-145)
[2019-03-08] MEDS: NORCO 5/325 MG TAB PO PRN ×2 (00:41→17:14)
[2019-03-08 01:26] VITALS: BMI 17.9
[2019-03-08 03:43] LABS: BLOOD UREA NITROGEN 18 mg/dL (7-18); CARBON DIOXIDE 15.3 mmol/L (21-32); CHLORIDE 98 mmol/L (98-107); COR NA(FOR HYPERGLY) 138 mmol/L (136-145); SODIUM 135 mmol/L (136-145); eGFR NON BLACK RACES 57 (>60)
[2019-03-08 07:25] LABS: ABG ALLEN TEST POS; ABG BASE EXCESS 3.9 mmol/L (-2.0-2.0); ABG HCO3 27.7 mmol/L (22-26)
[2019-03-08 07:29] LABS: SERUM ACETONE SMALL (NEGATIVE)
[2019-03-08 07:30] LABS: BLOOD UREA NITROGEN 14 mg/dL (7-18); CALCIUM 8.3 mg/dL (8.5-10.1); CARBON DIOXIDE 23.9 mmol/L (21-32); CHLORIDE 101 mmol/L (98-107); COR NA(FOR HYPERGLY) 138 mmol/L (136-145); CREATININE 1.22 mg/dL (0.70-1.30); SODIUM 137 mmol/L (136-145); eGFR NON BLACK RACES > 60 (>60)
[2019-03-08 07:32] LABS: HEMOGLOBIN A1C 10.9 %
[2019-03-08] MEDS: PROTONIX TAB 40 MG PO SCH (08:47)
[2019-03-08] MEDS: ZESTRIL TAB 5 MG PO SCH (08:47)
[2019-03-08] MEDS: CYMBALTA PO SCH ×2 (08:47→20:53)
[2019-03-08] MEDS ORDERED: DUONEB 0.5 MG/3 MG NEB PRN (09:00)
[2019-03-08 11:47] LABS: BLOOD UREA NITROGEN 12 mg/dL (7-18); CALCIUM 8.2 mg/dL (8.5-10.1); CARBON DIOXIDE 26.4 mmol/L (21-32); CHLORIDE 101 mmol/L (98-107); COR NA(FOR HYPERGLY) 137 mmol/L (136-145); CREATININE 1.04 mg/dL (0.70-1.30); SODIUM 134 mmol/L (136-145); eGFR NON BLACK RACES > 60 (>60)
[2019-03-08] MEDS ORDERED: ZOFRAN TAB 4 MG SL PRN (17:05)
[2019-03-08] MEDS ORDERED: ZOFRAN INJ 4 MG VIAL ONE (17:10)
[2019-03-08] MEDS ORDERED: ZOFRAN INJ 4 MG VIAL IVP PRN (17:17)
--- NOTE | 2019-03-08 17:52 | DR.H&P ---
H&P - History & Physical for Day of: H&P Date: 03/07/19 - Chief Complaint Chief Complaint: N/V, WEAKNESS, ELEVATED BLOOD SUGAR - History of Present Illness History of Present Illness: He started feeling sick this morning and started throwing up this afternoon; he cannot remember if he had his insulin today; no cp, fevers, chills or diarrhea; he has had multiple episodes of dka with admissions here and at [facility] [place]; he was diagnosed six years ago. IN ER, PT NA 127, BS 936, CO2 7.5, BUN 30 CREAT 1.67. PT ADMITTED TO ICU FOR TREATMENT OF DKA, INSULIN DRIP INITIATED. - Past Medical History Past Medical History: Diabetes Additional Medical History: Opiate abuse, Diabetic Neuropathy - Past Surgical History Surgical History: Cholecystectomy - Family History Family Medical History: Diabetes Mellitus - Social History Does patient currently use any type of tobacco product: Yes Have you used tobacco products in the last 12 months: Yes Type of Tobacco Use: Cigarettes How many years tobacco product used: 30 Does any household member use tobacco: Yes Alcohol Use: None Drug Use: None Risks, benefits, and alternatives of opioids discussed: No - Medications Home Medications: No Known Drug Allergies Allergy (Verified 03/07/19 22:26) CONTINUE taking the following medications clonazepam 1 mg PO BID PRN 03/07/19 [History] diclofenac sodium 75 mg PO PRN PRN 03/07/19 [History] duloxetine 30 mg PO BID 03/07/19 [History] insulin aspart U-100 [Novolog Flexpen U-100 Insulin] 0 unit SUBCUT PER PKG DIR 03/07/19 [History] lisinopril 5 mg PO DAILY 03/07/19 [History] metformin 500 mg PO BID 03/07/19 [History] pantoprazole 40 mg PO DAILY 03/07/19 [History] - Review of Systems Constitutional: Weakness Eyes: No Symptoms Reported ENT: No Symptoms Reported Respiratory: No Symptoms Reported Cardiovascular: No Symptoms Reported Gastrointestinal: Nausea, Vomiting, Abdominal Pain Genitourinary: Frequency Musculoskeletal: Back Pain Skin: No Symptoms Reported Neurological: Weakness - Physical Exam Vital Signs: Temperature 98.9 F Pulse Rate [Left] 111 Pulse Rate 90 Respiratory Rate 18 Blood Pressure [Left Arm] 143/81 Blood Pressure 120/70 O2 Sat by Pulse Oximetry 100 Oriented: Person Eyes: Normal Ear: Normal Nose: Normal Throat: Dry Respiratory: RLL Diminished, LLL Diminished Cardiovascular: Tachycardia Auscultation: Bowel Sounds: Normal Palpation: Normal Tenderness: Epigastric, Mild Skin: Decreased Turgur Musculoskeletal: Normal Psychiatric: Anxiety Affect: Anxious Speech Pattern: Appropriate, Delayed - Assessment/Plan (1) DKA (diabetic ketoacidoses) Status: Acute Plan: ADMIT ICU, INSULIN DRIP. SERIAL ABG, SUPPLEMENTAL O2, IV HYDRATION. TRAINING PERSONNEL SUPERVISOR BS PER PROTOCOL, CARDIAC MONITORING, BP CONTROL. ELECTROLYTE REPLACEMENT. NAUSEA CONTROL, VERIFY HOME MEDICATIONS. CXR ON ADMISSION, CENTRAL LINE PER DR APPLE (2) Acute renal failure Status: Acute (3) Dehydration Status: Acute (4) Anxiety Status: Chronic (5) Hyponatremia Status: Acute - Allergies Allergies/Adverse Reactions: Allergies Allergy/AdvReac Type Severity Reaction Status Date / Time No Known Drug Allergies Allergy Verified 03/07/19 22:26
--- NOTE | 2019-03-08 18:12 | PCM.PROG ---
Progress Note - Progress Note for Day of Date of Exam: 03/08/19 - Subjective Subjective: 48 WM ER ADMISSION TO ICU WITH DKA. PT HAS KNOWN HISTORY OF DIABETES, HISTORY NON COMPLIANCE. PT'S BS IN ER 936, CO2 ON CMP 7.5. PT WAS STARTED ON INSULIN DRIP AND IV HYDRATION, SERIAL ABGS, SUPPLEMENTAL O2. PT NS UP TO 135 THIS AM, CO2 23.9, BUN 14, CREAT 1.22. SERUM ACETONE, SMALL THIS AM AND PT CONTIUES ON INSULING DRIP. BS <150. PT AWAKE AND ALERT, DENIES ANY NAUSEAM ASKING TO ADVANCE DIET. PT DENIES ANY PAIN THIS AM. PT TOLERATED CLEAR LIQUIDS AND INCREASED TO 1800ADA. REPEAT ACETONE AND BMP ORDERED FOR 11 AM - Past Medical Family Social History Past Med/Fam/Surg Hx: No changes since H&P Allergies: Allergies No Known Drug Allergies Allergy (Verified 03/07/19 22:26) - Review of Systems ROS: No change since H&P - Vital Signs and I&O's Vital Signs: Temperature 98.9 F Pulse Rate [Left] 111 Pulse Rate 90 Respiratory Rate 18 Blood Pressure [Left Arm] 143/81 Blood Pressure 120/70 O2 Sat by Pulse Oximetry 100 Intake and Output: Intake & Output 03/06/19 03/07/19 03/08/19 03/09/19 11:59 11:59 11:59 11:59 Intake Total 957 / 957 1651 / 1651 Output Total 1100 / 1100 850 / 850 Balance -143 / -143 801 / 801 - Physical Exam Oriented: Normal Eyes: Normal Ear: Normal Nose: Normal Throat: Dry Respiratory: Diminished (MILD DIMINISHED LUNG BASES) Cardiovascular: Tachycardia Auscultation: Bowel Sounds: Normal Tenderness: Epigastric, Mild Skin: Decreased Turgur Musculoskeletal: Normal Psychiatric: Anxiety Affect: Anxious Speech Pattern: Appropriate, Delayed - Laboratory and Diagnostics Result Diagrams: 03/07/19 20:05 03/08/19 11:32 Labs: Laboratory WBC 10.2 X10^3/uL (3.6-10.0) H 03/07/19 20:05 RBC 4.70 X10^6/uL (4.7-6.0) 03/07/19 20:05 Hgb 15.0 g/dL (13.5-18.0) 03/07/19 20:05 Hct 47.8 % (42.0-54.0) 03/07/19 20:05 MCV 101.9 fL (80.0-100.0) H 03/07/19 20:05 MCH 31.9 pg (27.0-34.0) 03/07/19 20:05 MCHC 31.3 g/dL (33.0-35.0) L 03/07/19 20:05 RDW 13.5 % (11.6-16.5) 03/07/19 20:05 Plt Count 588 X10^3/uL (150.0-450.0) H 03/07/19 20:05 MPV 7.9 fL (7.4-11.0) 03/07/19 20:05 Neut % (Auto) 63.3 % (42.0-75.0) 03/07/19 20:05 Lymph % (Auto) 29.9 % (21.0-51.0) 03/07/19 20:05 [place] % (Auto) 6.0 % (0.0-13.0) 03/07/19 20:05 Eos % (Auto) 0.3 % (0.9-2.9) L 03/07/19 20:05 Baso % (Auto) 0.5 % (0.2-1.0) 03/07/19 20:05 Neut # (Auto) 6.4 x10^3/uL (2.2-4.8) H 03/07/19 20:05 Lymph # (Auto) 3.0 X10^3/uL (1.3-2.9) H 03/07/19 20:05 [place] # (Auto) 0.6 x10^3/uL (0.3-0.8) 03/07/19 20:05 Eos # (Auto) 0.0 x10^3/uL (0.0-0.2) 03/07/19 20:05 Baso # (Auto) 0.1 X10^3/uL (0.0-0.1) 03/07/19 20:05 Absolute Nucleated RBC 0.0 /100WBC 03/07/19 20:05 Sample Site Rrad 03/08/19 07:18 ABG pH 7.470 (7.35-7.45) H 03/08/19 07:18 ABG pCO2 38.0 mmHg (35.0-45.0) 03/08/19 07:18 ABG pO2 104.0 mmHg (80.0-100.0) H 03/08/19 07:18 ABG HCO3 27.7 mmol/L (22-26) H 03/08/19 07:18 ABG O2 Saturation 98.0 % (90-100) 03/08/19 07:18 ABG Base Excess 3.9 mmol/L (-2.0-2.0) H 03/08/19 07:18 Vince Test Pos 03/08/19 07:18 A-a Gradient -2.0 mmHg 03/08/19 07:18 FiO2 21.0 03/08/19 07:18 Blood Gas Comments Pt vineet well elj 03/08/19 07:18 Sodium 134 mmol/L (136-145) L 03/08/19 11:32 Corrected Sodium 137 mmol/L (136-145) 03/08/19 11:32 Potassium 4.0 mmol/L (3.5-5.1) 03/08/19 11:32 Chloride 101 mmol/L (98-107) 03/08/19 11:32 Carbon Dioxide 26.4 mmol/L (21-32) 03/08/19 11:32 BUN 12 mg/dL (7-18) 03/08/19 11:32 Creatinine 1.04 mg/dL (0.70-1.30) 03/08/19 11:32 Est GFR (MDRD) Af Amer > 60 (>60) 03/08/19 11:32 Est GFR (MDRD) Non-Af > 60 (>60) 03/08/19 11:32 Glucose 206 mg/dL (65-99) H 03/08/19 11:32 POC Glucose (mg/dL) 116 mg/dL (65-99) H 03/08/19 17:23 Hemoglobin A1c 10.9 % 03/08/19 07:00 Calcium 8.2 mg/dL (8.5-10.1) L 03/08/19 11:32 Corrected Calcium TNP 03/07/19 20:05 Total Bilirubin 0.70 mg/dL (0.2-1.0) 03/07/19 20:05 AST 61 Units/L (15-37) H 03/07/19 20:05 ALT 124 Units/L (12-78) H 03/07/19 20:05 Alkaline Phosphatase 221 Units/L (46-116) H 03/07/19 20:05 Creatine Kinase 46 Units/L (39-308) 03/07/19 22:59 CK-MB (CK-2) < 1.0 ng/mL (0-4.0) 03/07/19: CK/CKMB % Calc 2.2 % (<4) 03/07/19: Troponin I < 0.02 ng/mL (0-1.5) 03/07/19 22:59 Total Protein 7.8 g/dL (6.4-8.2) 03/07/19 20:05 Albumin 3.8 g/dL (3.4-5.0) 03/07/19 20:05 Globulin 4.0 g/dL (2.5-4.5) 03/07/19 20:05 Albumin/Globulin Ratio 1.0 Ratio (1.1-2.1) L 03/07/19 20:05 Specimen Type Clean catch urine 03/07/19 22:03 Urine Color Pale yellow (YELLOW) 03/07/19 22: Urine Appearance Clear (CLEAR) 03/07/19 22: Urine pH 5.0 (5.0 - 8.0) 03/07/19 22:03 Ur Specific [place] 1.015 (1.000-1.030) 03/07/19 22:03 Urine Protein 2+ (NEGATIVE) 03/07/19 22: Urine Glucose (UA) 4+ (NEGATIVE) 03/07/19 22:03 Urine Ketones 4+ (NEGATIVE) 03/07/19 22: Urine Occult Blood Negative (NEGATIVE) 03/07/19 22: Urine Nitrite Negative (NEGATIVE) 03/07/19 22: Urine Bilirubin Negative (NEGATIVE) 03/07/19 22: Urine Urobilinogen Normal (NORMAL) 03/07/19 22:03 Ur Leukocyte Esterase Negative (NEGATIVE) 03/07/19 22:03 Urine RBC None seen /HPF (0-3) 03/07/19 22:03 Urine WBC None seen /HPF (0-5) 03/07/19 22:03 Ur Squamous Epith Cells Rare /HPF (NEGATIVE) 03/07/19 22:03 Urine Bacteria Negative /HPF (NEGATIVE) 03/07/19 22:03 Ur Culture Indicated? No/not indicated 03/07/19 22:03 Acetone, Semi-Quant Small (NEGATIVE) H 03/08/19 13:10 - Plan (1) DKA (diabetic ketoacidoses) Status: Acute Plan: INSULIN DRIP, TITRATE PER PROTOCOL. SERIAL ABG, SUPPLEMENTAL O2, IV HYDRATION. ORGANIC SEARCH LEAD BS PER PROTOCOL, CARDIAC MONITORING, BP CONTROL. ELECTROLYTE REPLACEMENT. NAUSEA CONTROL, VERIFY HOME MEDICATIONS. ADVANCE DIET TO 1800 ADA TOLERATED. CXR ON ADMISSION, CENTRAL LINE PER DR APPLE (2) Acute renal failure Status: Acute (3) Dehydration Status: Acute (4) Anxiety Status: Chronic (5) Hyponatremia Status: Acute
[2019-03-08 19:00] LABS: ABG HCO3 26.5 mmol/L (22-26)
[2019-03-08] MEDS: SNACK - Diabetic Appropriate PO SCH (20:35)
[2019-03-08] MEDS: PHENERGAN INJ 25 MG IM PRN (20:40)
[2019-03-08] MEDS: KLONOPIN TAB 1 MG PO PRN (20:53)
[2019-03-08] MEDS: HumuLIN R SC PRN (20:53)
[2019-03-09] MEDS: NS 1000 ML 1,000 ML IV SCH ×2 (02:31→19:00)
[2019-03-09] MEDS: HumuLIN R SC PRN ×3 (06:00→21:38)
[2019-03-09 06:09] LABS: BASOPHILS % (AUTO) 0.6 % (0.2-1.0); EOSINOPHILS # (AUTO) 0.1 x10^3/uL (0.0-0.2); EOSINOPHILS % (AUTO) 1.3 % (0.9-2.9); HEMATOCRIT 27.4 % (42.0-54.0); HEMOGLOBIN 9.7 g/dL (13.5-18.0); LYMPHOCYTES # (AUTO) 1.9 X10^3/uL (1.3-2.9); LYMPHOCYTES % (AUTO) 26.9 % (21.0-51.0); MEAN CORPUSCULAR HEMOGLOBIN 32.3 pg (27.0-34.0); MEAN CORPUSCULAR HGB CONC 35.3 g/dL (33.0-35.0); MEAN CORPUSCULAR VOLUME 91.5 fL (80.0-100.0); MEAN PLATELET VOLUME 7.7 fL (7.4-11.0); MONOCYTES # (AUTO) 0.4 x10^3/uL (0.3-0.8); MONOCYTES % (AUTO) 5.3 % (0.0-13.0); NEUTROPHILS # (AUTO) 4.7 x10^3/uL (2.2-4.8); NEUTROPHILS % (AUTO) 65.9 % (42.0-75.0); PLATELET COUNT 241 X10^3/uL (150.0-450.0); RED BLOOD COUNT 2.99 X10^6/uL (4.7-6.0); WHITE BLOOD COUNT 7.2 X10^3/uL (3.6-10.0)
[2019-03-09 06:18] LABS: ALANINE AMINOTRANSFERASE 53 Units/L (12-78); ALKALINE PHOSPHATASE 91 Units/L (46-116); ASPARTATE AMINO TRANSFERASE 36 Units/L (15-37); BLOOD UREA NITROGEN 9 mg/dL (7-18); CALCIUM 7.4 mg/dL (8.5-10.1); CHLORIDE 102 mmol/L (98-107); COR NA(FOR HYPERGLY) 138 mmol/L (136-145); CREATININE 0.66 mg/dL (0.70-1.30); SODIUM 134 mmol/L (136-145); TOTAL PROTEIN 4.3 g/dL (6.4-8.2); eGFR NON BLACK RACES > 60 (>60)
[2019-03-09 06:26] LABS: ABG ALLEN TEST POS; ABG BASE EXCESS 3.2 mmol/L (-2.0-2.0); ABG HCO3 27.9 mmol/L (22-26)
[2019-03-09] MEDS ORDERED: LEVSIN/MAALOX/LIDOC VISC ONE (08:16)
[2019-03-09] MEDS: LEVSIN/MAALOX/LIDOC VISC PO SCH ×6 (08:20→21:38)
[2019-03-09] MEDS: PROTONIX TAB 40 MG PO SCH (08:21)
[2019-03-09] MEDS: NORCO 5/325 MG TAB PO PRN ×2 (08:22→18:21)
[2019-03-09] MEDS: ZESTRIL TAB 5 MG PO SCH (08:24)
[2019-03-09] MEDS: CYMBALTA PO SCH ×2 (08:26→21:17)
[2019-03-09 11:10] LABS: BASOPHILS % (AUTO) 0.5 % (0.2-1.0); EOSINOPHILS # (AUTO) 0.1 x10^3/uL (0.0-0.2); EOSINOPHILS % (AUTO) 0.8 % (0.9-2.9); HEMOGLOBIN 10.5 g/dL (13.5-18.0); LYMPHOCYTES # (AUTO) 1.8 X10^3/uL (1.3-2.9); LYMPHOCYTES % (AUTO) 24.4 % (21.0-51.0); MEAN CORPUSCULAR HEMOGLOBIN 32.2 pg (27.0-34.0); MEAN CORPUSCULAR VOLUME 92.1 fL (80.0-100.0); MEAN PLATELET VOLUME 7.6 fL (7.4-11.0); MONOCYTES # (AUTO) 0.4 x10^3/uL (0.3-0.8); MONOCYTES % (AUTO) 5.6 % (0.0-13.0); NEUTROPHILS % (AUTO) 68.7 % (42.0-75.0); PLATELET COUNT 234 X10^3/uL (150.0-450.0); RED BLOOD COUNT 3.26 X10^6/uL (4.7-6.0); RED CELL DISTRIBUTION WIDTH 12.8 % (11.6-16.5); WHITE BLOOD COUNT 7.2 X10^3/uL (3.6-10.0)
[2019-03-09] MEDS ORDERED: K-RIDER 10 MEQ/NS 100 ML 10 MEQ/100 ML BAG IV PRN (12:47)
[2019-03-09] MEDS ORDERED: POTASSIUM CHLORIDE LIQ 20 MEQ UDC PO PRN (12:47)
[2019-03-09] MEDS ORDERED: MICRO K EXTEN CAP 10 MEQ PO PRN (12:47)
[2019-03-09] MEDS ORDERED: KLOR-CON PO PRN (12:47)
[2019-03-09] MEDS ORDERED: POTASSIUM CHL 60 MEQ/NS 0.45% 500 ML IV PRN (12:47)
[2019-03-09] MEDS ORDERED: POTASSIUM CHL 40 MEQ/NS 0.45% 500 ML IV PRN (12:47)
[2019-03-09] MEDS: K-DUR TAB 20 MEQ PO PRN (13:07)
--- NOTE | 2019-03-09 16:35 | RAD ---
HISTORY: Abdominal Pain Study: Single flat view of the abdomen. Comparison: None Findings: Evaluation of the abdomen demonstrates a normal bowel gas pattern. No free air. No pathological soft tissue mass or calcification can be observed. The bony structures are grossly intact. IMPRESSION: 1. No evidence for acute abdominal pathology identified. Reported By:
[2019-03-09] MEDS ORDERED: MAGNESIUM SULFATE 1 GRAM/100 mL PREMIX 2 G/200 ML BAG IV SCH (17:00)
[2019-03-09] MEDS ORDERED: MAGNESIUM SULFATE 1 GRAM/100 mL PREMIX 2 G/200 ML BAG IV ONE (17:05)
[2019-03-09] MEDS: MAGNESIUM SULFATE 1 GRAM/100 mL PREMIX 1 GM/100 ML BAG IV PRN ×2 (17:12→18:28)
[2019-03-09] MEDS: SNACK - Diabetic Appropriate PO SCH (21:16)
[2019-03-09] MEDS: KLONOPIN TAB 1 MG PO PRN (21:18)
[2019-03-09] MEDS: PHENERGAN INJ 25 MG IM PRN (21:18)
[2019-03-10 04:47] LABS: BASOPHILS % (AUTO) 0.4 % (0.2-1.0); EOSINOPHILS % (AUTO) 0.5 % (0.9-2.9); HEMATOCRIT 30.4 % (42.0-54.0); HEMOGLOBIN 10.4 g/dL (13.5-18.0); LYMPHOCYTES # (AUTO) 1.3 X10^3/uL (1.3-2.9); LYMPHOCYTES % (AUTO) 22.7 % (21.0-51.0); MEAN CORPUSCULAR HGB CONC 34.1 g/dL (33.0-35.0); MEAN PLATELET VOLUME 8.3 fL (7.4-11.0); MONOCYTES # (AUTO) 0.4 x10^3/uL (0.3-0.8); MONOCYTES % (AUTO) 6.6 % (0.0-13.0); NEUTROPHILS % (AUTO) 69.8 % (42.0-75.0); PLATELET COUNT 219 X10^3/uL (150.0-450.0); RED BLOOD COUNT 3.24 X10^6/uL (4.7-6.0); RED CELL DISTRIBUTION WIDTH 12.7 % (11.6-16.5); WHITE BLOOD COUNT 5.7 X10^3/uL (3.6-10.0)
[2019-03-10 04:53] LABS: ALANINE AMINOTRANSFERASE 48 Units/L (12-78); ALBUMIN 2.1 g/dL (3.4-5.0); ALKALINE PHOSPHATASE 116 Units/L (46-116); ASPARTATE AMINO TRANSFERASE 37 Units/L (15-37); BLOOD UREA NITROGEN 11 mg/dL (7-18); CALCIUM 7.4 mg/dL (8.5-10.1); CHLORIDE 98 mmol/L (98-107); COR CA(FOR HYPOALB) 8.9 mg/dL (8.5-10.1); COR NA(FOR HYPERGLY) 141 mmol/L (136-145); CREATININE 0.62 mg/dL (0.70-1.30); SODIUM 133 mmol/L (136-145); TOTAL PROTEIN 4.8 g/dL (6.4-8.2); eGFR NON BLACK RACES > 60 (>60)
[2019-03-10] MEDS: LEVSIN/MAALOX/LIDOC VISC PO SCH ×5 (06:29→20:52)
[2019-03-10] MEDS: NS 1000 ML 1,000 ML IV SCH ×4 (06:29→23:49)
[2019-03-10] MEDS: NORCO 5/325 MG TAB PO PRN ×2 (07:07→18:41)
[2019-03-10] MEDS: HumuLIN R SC PRN ×4 (07:40→20:53)
[2019-03-10] MEDS: KLONOPIN TAB 1 MG PO PRN ×2 (08:56→20:53)
[2019-03-10] MEDS: CYMBALTA PO SCH ×2 (08:57→20:51)
[2019-03-10] MEDS: ZESTRIL TAB 5 MG PO SCH (08:58)
[2019-03-10] MEDS: PROTONIX TAB 40 MG PO SCH (08:58)
[2019-03-10] MEDS ORDERED: SNACK - Diabetic Appropriate PO SCH (20:00)
[2019-03-10] MEDS: SNACK - Diabetic Appropriate PO SCH (20:51)
[2019-03-11] MEDS: LEVSIN/MAALOX/LIDOC VISC PO SCH ×7 (01:01→20:58)
[2019-03-11] MEDS: PHENERGAN INJ 25 MG IM PRN ×2 (01:02→18:56)
[2019-03-11] MEDS: NORCO 5/325 MG TAB PO PRN ×3 (03:12→21:55)
[2019-03-11] MEDS: HumuLIN R SC PRN (04:39)
[2019-03-11 04:53] LABS: BASOPHILS % (AUTO) 0.6 % (0.2-1.0); EOSINOPHILS % (AUTO) 1.1 % (0.9-2.9); HEMATOCRIT 28.6 % (42.0-54.0); LYMPHOCYTES # (AUTO) 1.3 X10^3/uL (1.3-2.9); LYMPHOCYTES % (AUTO) 30.9 % (21.0-51.0); MEAN CORPUSCULAR HEMOGLOBIN 32.4 pg (27.0-34.0); MEAN CORPUSCULAR HGB CONC 35.1 g/dL (33.0-35.0); MEAN CORPUSCULAR VOLUME 92.1 fL (80.0-100.0); MEAN PLATELET VOLUME 8.5 fL (7.4-11.0); MONOCYTES # (AUTO) 0.3 x10^3/uL (0.3-0.8); MONOCYTES % (AUTO) 7.2 % (0.0-13.0); NEUTROPHILS # (AUTO) 2.5 x10^3/uL (2.2-4.8); NEUTROPHILS % (AUTO) 60.2 % (42.0-75.0); PLATELET COUNT 225 X10^3/uL (150.0-450.0); RED CELL DISTRIBUTION WIDTH 12.7 % (11.6-16.5); WHITE BLOOD COUNT 4.2 X10^3/uL (3.6-10.0)
[2019-03-11 05:02] LABS: ALANINE AMINOTRANSFERASE 43 Units/L (12-78); ALBUMIN 2.1 g/dL (3.4-5.0); ALKALINE PHOSPHATASE 104 Units/L (46-116); ASPARTATE AMINO TRANSFERASE 34 Units/L (15-37); BLOOD UREA NITROGEN 11 mg/dL (7-18); CALCIUM 7.8 mg/dL (8.5-10.1); CARBON DIOXIDE 28.7 mmol/L (21-32); CHLORIDE 101 mmol/L (98-107); COR CA(FOR HYPOALB) 9.3 mg/dL (8.5-10.1); COR NA(FOR HYPERGLY) 144 mmol/L (136-145); CREATININE 0.55 mg/dL (0.70-1.30); SODIUM 138 mmol/L (136-145); TOTAL PROTEIN 4.7 g/dL (6.4-8.2); eGFR NON BLACK RACES > 60 (>60)
[2019-03-11] MEDS: PROTONIX TAB 40 MG PO SCH (08:55)
[2019-03-11] MEDS: CYMBALTA PO SCH ×2 (08:55→20:58)
[2019-03-11] MEDS: K-DUR TAB 20 MEQ PO PRN (08:56)
[2019-03-11] MEDS: NS 1000 ML 1,000 ML IV SCH ×3 (08:56→23:00)
[2019-03-11] MEDS: LEVEMIR SC SCH (08:57)
[2019-03-11] MEDS: ZESTRIL TAB 5 MG PO SCH (09:00)
[2019-03-11] MEDS: SNACK - Diabetic Appropriate PO SCH (20:00)
[2019-03-11] MEDS: KLONOPIN TAB 1 MG PO PRN (21:57)
[2019-03-12] MEDS: LEVSIN/MAALOX/LIDOC VISC PO SCH ×3 (00:45→08:59)
[2019-03-12] MEDS: NS 1000 ML 1,000 ML IV SCH ×2 (00:52→07:53)
[2019-03-12] MEDS: PHENERGAN INJ 25 MG IM PRN (02:05)
[2019-03-12] MEDS: NORCO 5/325 MG TAB PO PRN ×2 (04:38→10:42)
[2019-03-12 04:54] LABS: BASOPHILS # (AUTO) 0.1 X10^3/uL (0.0-0.1); BASOPHILS % (AUTO) 1.2 % (0.2-1.0); EOSINOPHILS % (AUTO) 0.6 % (0.9-2.9); HEMATOCRIT 29.3 % (42.0-54.0); HEMOGLOBIN 10.4 g/dL (13.5-18.0); LYMPHOCYTES # (AUTO) 1.7 X10^3/uL (1.3-2.9); LYMPHOCYTES % (AUTO) 35.6 % (21.0-51.0); MEAN CORPUSCULAR HEMOGLOBIN 32.4 pg (27.0-34.0); MEAN CORPUSCULAR HGB CONC 35.4 g/dL (33.0-35.0); MEAN CORPUSCULAR VOLUME 91.6 fL (80.0-100.0); MONOCYTES # (AUTO) 0.3 x10^3/uL (0.3-0.8); MONOCYTES % (AUTO) 6.6 % (0.0-13.0); NEUTROPHILS # (AUTO) 2.7 x10^3/uL (2.2-4.8); PLATELET COUNT 290 X10^3/uL (150.0-450.0); RED BLOOD COUNT 3.19 X10^6/uL (4.7-6.0); RED CELL DISTRIBUTION WIDTH 12.7 % (11.6-16.5); WHITE BLOOD COUNT 4.8 X10^3/uL (3.6-10.0)
[2019-03-12 05:07] LABS: ALANINE AMINOTRANSFERASE 41 Units/L (12-78); ALBUMIN 2.3 g/dL (3.4-5.0); ALKALINE PHOSPHATASE 95 Units/L (46-116); ASPARTATE AMINO TRANSFERASE 33 Units/L (15-37); BLOOD UREA NITROGEN 10 mg/dL (7-18); CALCIUM 8.1 mg/dL (8.5-10.1); CARBON DIOXIDE 28.6 mmol/L (21-32); CHLORIDE 104 mmol/L (98-107); COR CA(FOR HYPOALB) 9.5 mg/dL (8.5-10.1); COR NA(FOR HYPERGLY) 143 mmol/L (136-145); CREATININE 0.59 mg/dL (0.70-1.30); SODIUM 141 mmol/L (136-145); eGFR NON BLACK RACES > 60 (>60)
[2019-03-12] MEDS: K-DUR TAB 20 MEQ PO PRN (05:21)
[2019-03-12] MEDS: HumuLIN R SC PRN (06:15)
[2019-03-12] MEDS: MAGNESIUM SULFATE 1 GRAM/100 mL PREMIX 1 GM/100 ML BAG IV PRN (06:31)
[2019-03-12] MEDS: CYMBALTA PO SCH (08:58)
[2019-03-12] MEDS: PROTONIX TAB 40 MG PO SCH (08:59)
[2019-03-12] MEDS: LEVEMIR SC SCH (08:59)
[2019-03-12] MEDS: ZESTRIL TAB 5 MG PO SCH (09:00)
[2019-03-12 10:24] VITALS: BP 120/82
== END 2019-03-12 11:00 | disposition home or self-care (01) | DRG 638 ==
LOC: ER 19:43 → ICU 23:01
PROVIDERS: ADMIT Internal Medicine; ATTEND Internal Medicine
DX: N17.8 Other acute kidney failure; I87.2 Venous insufficiency (chronic) (peripheral); E86.0 Dehydration; R10.13 Epigastric pain; E87.1 Hypo-osmolality and hyponatremia; F41.8 Other specified anxiety disorders; I10 Essential (primary) hypertension; E10.10 Type 1 diabetes mellitus with ketoacidosis without coma; E10.22 Type 1 diabetes mellitus with diabetic chronic kidney disease; Z79.4 Long term (current) use of insulin
CPT/HCPCS: 36415; 36556; 36600; 71010; 71045; 74000; 74018; 80048; 80053; 81001; 82009; 82270; 82550; 82553; 82607; 82728; 82746; 82803; 82947; 83036; 83540; 83735; 84466; 84484; 85025; 87040; 93005; 96365; 96367; 96374; 96375; 99285; A4222; J1815; J2060; J2405; J2550; J3475; J7030; J7050; S0119; S0181

== ENCOUNTER 2019-12-04 17:50 | Inpatient (IN) ==
[2019-12-04] MEDS ORDERED: NS 1000 ML 1,000 ML ONE ×3 (18:17→20:47)
[2019-12-04] MEDS ORDERED: NS 1000 ML 1,000 ML IV ONE ×3 (18:41→20:37)
[2019-12-04 18:45] LABS: BASOPHILS # (AUTO) 0.1 X10^3/uL (0.0-0.1); BASOPHILS % (AUTO) 0.8 % (0.2-1.0); EOSINOPHILS % (AUTO) 0.1 % (0.9-2.9); HEMOGLOBIN 13.4 g/dL (13.5-18.0); LYMPHOCYTES % (AUTO) 12.8 % (21.0-51.0); MEAN CORPUSCULAR HEMOGLOBIN 30.5 pg (27.0-34.0); MEAN CORPUSCULAR HGB CONC 32.7 g/dL (33.0-35.0); MEAN CORPUSCULAR VOLUME 93.3 fL (80.0-100.0); MEAN PLATELET VOLUME 8.1 fL (7.4-11.0); MONOCYTES # (AUTO) 0.7 x10^3/uL (0.3-0.8); MONOCYTES % (AUTO) 8.7 % (0.0-13.0); NEUTROPHILS # (AUTO) 5.9 x10^3/uL (2.2-4.8); NEUTROPHILS % (AUTO) 77.6 % (42.0-75.0); PLATELET COUNT 355 X10^3/uL (150.0-450.0); RED CELL DISTRIBUTION WIDTH 13.3 % (11.6-16.5); WHITE BLOOD COUNT 7.6 X10^3/uL (3.6-10.0)
[2019-12-04 18:46] LABS: BILIRUBIN,URINE NEGATIVE (NEGATIVE); BLOOD/HEMOGLOBIN,URINE NEGATIVE (NEGATIVE); GLUCOSE, URINE 4+ (NEGATIVE); KETONES,URINE 1+ (NEGATIVE); LEUKOCYTE ESTERASE ,URINE NEGATIVE (NEGATIVE); NITRITES,URINE NEGATIVE (NEGATIVE); PROTEIN,URINE NEGATIVE (NEGATIVE); UROBILINOGEN,URINE NORMAL (NORMAL)
[2019-12-04 18:52] LABS: APPEARANCE,URINE CLEAR (CLEAR); COLOR,URINE YELLOW (YELLOW)
[2019-12-04 18:55] LABS: BLOOD UREA NITROGEN 22 mg/dL (7-18); CALCIUM 8.3 mg/dL (8.5-10.1); CARBON DIOXIDE 25.9 mmol/L (21-32); CHLORIDE 88 mmol/L (98-107); CREATININE 1.25 mg/dL (0.70-1.30); eGFR NON BLACK RACES > 60 (>60)
[2019-12-04 18:56] LABS: ALANINE AMINOTRANSFERASE 29 Units/L (12-78); ALBUMIN 3.2 g/dL (3.4-5.0); ALKALINE PHOSPHATASE 125 Units/L (46-116); ASPARTATE AMINO TRANSFERASE 26 Units/L (15-37); COR CA(FOR HYPOALB) 8.9 mg/dL (8.5-10.1); TOTAL PROTEIN 6.4 g/dL (6.4-8.2)
[2019-12-04 19:04] LABS: LACTIC ACID 2.1 mmol/L (0.4-2.0)
[2019-12-04 19:08] LABS: COR NA(FOR HYPERGLY) 139 mmol/L (136-145); SODIUM 122 mmol/L (136-145)
[2019-12-04] MEDS ORDERED: ZOFRAN INJ 4 MG VIAL IVP ONE (19:46)
[2019-12-04] MEDS ORDERED: ZOFRAN INJ 4 MG VIAL ONE (19:47)
[2019-12-04] MEDS ORDERED: HumuLIN R IV ONE (20:29)
[2019-12-04] MEDS ORDERED: HumuLIN R ONE (20:31)
[2019-12-04] MEDS ORDERED: MYXREDLIN 100 UNIT/100 ML BAG 100 UNIT/100 ML PLAST..BAG IV ONE (20:32)
--- NOTE | 2019-12-04 20:43 | DR.ABDMALE ---
HPI Time seen Time Seen by Provider: 12/04/19 18:14 PCP Primary Care Physician: MADHU JACKSON HPI comment HPI Comment: Abdominal pain + nausea. patient states he has had glucose >300 all day that doesn't seem to drop. He has been admitted with DKA before. he denies any fevers, chills, SHOB, dysuria, or any other symptoms. Complaint Chief Complaint:: PATIENT STATES HE STARTED HAVING ABDOMEN PAIN AN HOUR AGO. PT STATES HE WOKE UP THIS MORNING WAS A GLUCOSE OF 38. PT STATES HIS SUGAR HAS BEEN HIGH EVER SINCE AND HAS GIVEN HIMSELF AN INSULIN SHOT MULTIPLE TIMES. COVID-19 Coronavirus risk:travel/contact w/high risk person: No Has patient experienced Coronavirus symptoms: No Mode of arrival Mode of Arrival: EMS Timing Onset of Chief Complaint: 12/04/19 PMH PMH Past Medical History: Yes Past Medical History: Diabetes Past Medical History Comment: DKA CKD CKF Past Surgical History: Yes Surgical History: Cholecystectomy Family History History of Family Medical Conditions: Yes Family Medical History: Diabetes Mellitus Social History Does patient currently use any type of tobacco product: Yes Have you used tobacco products in the last 12 months: Yes Type of Tobacco Use: Cigarettes Does any household member use tobacco: No Alcohol Use: None Do you use any recreational Drugs:: Yes (THC) Lives With: Family Lives Where: Home Travel Risk Coronavirus risk:travel/contact w/high risk person: No Has patient experienced Coronavirus symptoms: No Infectious screening Have you traveled outside the country in the last 6 months?: No Isolation: Standard PE Vital Signs Vital Signs: Temp Pulse Resp BP BP Pulse Ox 12/04/19 18:07 98.1 F 102 H 16 113/66 98 03/12/19 10:00 120/82 General Limitations: No Limitations General Appearance: Alert and Lethargic Head Head Exam: Normal Inspection Eyes Eye exam: Normal Appearance ENT ENT Exam: Mucous Membranes Dry Neck Neck Exam: Normal Inspection Chest Chest Inspection: Normal Inspection Respiratory Respiratory Exam: Normal Lung Sounds Bilat Cardiovascular Cardiovascular Exam: Regular Rate and Normal Rhythm Abdominal Exam Abdominal Exam: Normal Inspection, Normal Bowel Sounds, Soft and Tenderness; negative Distention, Guarding, Rebound and Rigidity Abdominal Tenderness: Diffuse and Other (b/l CVA tenderness) Rectal Rectal Exam: Deferred Back Back Exam: Normal Inspection, (R) CVA Tenderness and (L) CVA Tenderness Extremeties Extremities Exam: Normal Inspection Exam: Male: Deferred Neurologic Neurological Exam: Alert and Oriented X3 Psychiatric Psychiatric Exam: Normal Affect and Normal Mood Skin Skin Exam: Warm, Dry, Intact and Normal Color COURSE Treatment Treatment: No evidence of acidosis, hyperglycemia of >800, started with IV insulin drip and rehydration, admitted to ICU, Dr. Vlad dennison. ROR Labs Reviewed Result Diagrams: 12/04/19 18:28 12/04/19 18: Laboratory: WBC 7.6 X10^3/uL (3.6-10.0) 12/04/19 18: RBC 4.40 X10^6/uL (4.7-6.0) L 12/04/19 18: Hgb 13.4 g/dL (13.5-18.0) L 12/04/19 18: Hct 41.0 % (42.0-54.0) L 12/04/19 18: MCV 93.3 fL (80.0-100.0) 12/04/19 18: MCH 30.5 pg (27.0-34.0) 12/04/19 18: MCHC 32.7 g/dL (33.0-35.0) L 12/04/19: RDW 13.3 % (11.6-16.5) 12/04/19: Plt Count 355 X10^3/uL (150.0-450.0) 12/04/19: MPV 8.1 fL (7.4-11.0) 12/04/19: Neut % (Auto) 77.6 % (42.0-75.0) H 12/04/19 18: Lymph % (Auto) 12.8 % (21.0-51.0) L 12/04/19 18: [place] % (Auto) 8.7 % (0.0-13.0) 12/04/19: Eos % (Auto) 0.1 % (0.9-2.9) L 12/04/19 18: Baso % (Auto) 0.8 % (0.2-1.0) 12/04/19 18: Neut # (Auto) 5.9 x10^3/uL (2.2-4.8) H 12/04/19 18:28 Lymph # (Auto) 1.0 X10^3/uL (1.3-2.9) L 12/04/19 18:28 [place] # (Auto) 0.7 x10^3/uL (0.3-0.8) 12/04/19 18:28 Eos # (Auto) 0.0 x10^3/uL (0.0-0.2) 12/04/19 18:28 Baso # (Auto) 0.1 X10^3/uL (0.0-0.1) 12/04/19 18:28 Absolute Nucleated RBC 0.0 /100WBC 12/04/19 18:28 Sodium 122 mmol/L (136-145) L* 12/04/19 18:28 Corrected Sodium 139 mmol/L (136-145) 12/04/19 18:28 Potassium 5.2 mmol/L (3.5-5.1) H 12/04/19 18:28 Chloride 88 mmol/L (98-107) L 12/04/19 18:28 Carbon Dioxide 25.9 mmol/L (21-32) 12/04/19 18:28 BUN 22 mg/dL (7-18) H 12/04/19 18:28 Creatinine 1.25 mg/dL (0.70-1.30) 12/04/19 18:28 Est GFR (MDRD) Af Amer > 60 (>60) 12/04/19 18:28 Est GFR (MDRD) Non-Af > 60 (>60) 12/04/19 18:28 Glucose 828 mg/dL (65-99) H* 12/04/19 18:28 POC Glucose (mg/dL) > 600 mg/dL (65-99) 12/04/19 18:11 Lactic Acid 2.1 mmol/L (0.4-2.0) H 12/04/19 18:28 Calcium 8.3 mg/dL (8.5-10.1) L 12/04/19 18:28 Corrected Calcium 8.9 mg/dL (8.5-10.1) 12/04/19 18:28 Magnesium 2.0 mg/dL (1.7-2.9) 12/04/19 18:28 Total Bilirubin 0.80 mg/dL (0.2-1.0) 12/04/19 18:28 AST 26 Units/L (15-37) 12/04/19 18:28 ALT 29 Units/L (12-78) 12/04/19 18:28 Alkaline Phosphatase 125 Units/L (46-116) H 12/04/19 18:28 Total Protein 6.4 g/dL (6.4-8.2) 12/04/19 18:28 Albumin 3.2 g/dL (3.4-5.0) L 12/04/19 18:28 Globulin 3.2 g/dL (2.5-4.5) 12/04/19 18:28 Albumin/Globulin Ratio 1.0 Ratio (1.1-2.1) L 12/04/19 18:28 Specimen Type Clean catch urine 12/04/19 18:32 Urine Color Yellow (YELLOW) 12/04/19 18:32 Urine Appearance Clear (CLEAR) 12/04/19 18:32 Urine pH 5.0 (5.0 - 8.0) 12/04/19 18:32 Ur Specific [place] 1.010 (1.000-1.030) 12/04/19 18:32 Urine Protein Negative (NEGATIVE) 12/04/19 18:32 Urine Glucose (UA) 4+ (NEGATIVE) 12/04/19 18:32 Urine Ketones 1+ (NEGATIVE) 12/04/19 18:32 Urine Occult Blood Negative (NEGATIVE) 12/04/19 18:32 Urine Nitrite Negative (NEGATIVE) 12/04/19 18:32 Urine Bilirubin Negative (NEGATIVE) 12/04/19 18:32 Urine Urobilinogen Normal (NORMAL) 12/04/19 18:32 Ur Leukocyte Esterase Negative (NEGATIVE) 12/04/19 18:32 Acetone, Semi-Quant Small (NEGATIVE) H 12/04/19 18:28 Opioid Opioid Risk Tool Age (Abel box if 16-45): No History of Preadolescent Sexual Abuse: No Total: 0 Total Score Risk Category: Low Risk Copyright: Vee predicting aberrant behaviors Diagnosis Discharge Problem: Acute hyperglycemia, Costovertebral angle pain Abdominal pain Qualifiers: Abdominal location: generalized Qualified Code(s): R10.84 - Generalized abdominal pain
[2019-12-04] MEDS ORDERED: KLONOPIN TAB 1 MG PO PRN (21:48)
[2019-12-04] MEDS: NS 1/2 1000 ML IV 1,000 ML IV SCH (22:30)
[2019-12-04] MEDS: CYMBALTA PO SCH (22:50)
[2019-12-05] MEDS ORDERED: ZOFRAN INJ 4 MG VIAL ONE (04:05)
[2019-12-05] MEDS: ZOFRAN INJ 4 MG VIAL IVP PRN ×2 (04:10→15:31)
[2019-12-05] MEDS ORDERED: NS 1/2 1000 ML IV 1,000 ML IV ONE ×3 (05:27→19:36)
[2019-12-05] MEDS ORDERED: D50W ABBOJECT SYR ONE (05:34)
[2019-12-05] MEDS: NS 1/2 1000 ML IV 1,000 ML IV SCH ×4 (06:21→21:19)
[2019-12-05 07:10] LABS: BASOPHILS # (AUTO) 0.1 X10^3/uL (0.0-0.1); BASOPHILS % (AUTO) 1.4 % (0.2-1.0); EOSINOPHILS # (AUTO) 0.1 x10^3/uL (0.0-0.2); EOSINOPHILS % (AUTO) 1.6 % (0.9-2.9); HEMOGLOBIN 12.7 g/dL (13.5-18.0); LYMPHOCYTES # (AUTO) 1.9 X10^3/uL (1.3-2.9); LYMPHOCYTES % (AUTO) 28.9 % (21.0-51.0); MEAN CORPUSCULAR HEMOGLOBIN 30.1 pg (27.0-34.0); MEAN CORPUSCULAR HGB CONC 33.5 g/dL (33.0-35.0); MEAN CORPUSCULAR VOLUME 89.8 fL (80.0-100.0); MEAN PLATELET VOLUME 7.7 fL (7.4-11.0); MONOCYTES # (AUTO) 0.8 x10^3/uL (0.3-0.8); NEUTROPHILS # (AUTO) 3.7 x10^3/uL (2.2-4.8); NEUTROPHILS % (AUTO) 56.1 % (42.0-75.0); PLATELET COUNT 332 X10^3/uL (150.0-450.0); RED BLOOD COUNT 4.23 X10^6/uL (4.7-6.0); RED CELL DISTRIBUTION WIDTH 13.2 % (11.6-16.5); WHITE BLOOD COUNT 6.7 X10^3/uL (3.6-10.0)
[2019-12-05 07:18] LABS: ALANINE AMINOTRANSFERASE 23 Units/L (12-78); ALBUMIN 2.7 g/dL (3.4-5.0); ALKALINE PHOSPHATASE 82 Units/L (46-116); ASPARTATE AMINO TRANSFERASE 24 Units/L (15-37); BLOOD UREA NITROGEN 13 mg/dL (7-18); CALCIUM 7.9 mg/dL (8.5-10.1); CARBON DIOXIDE 22.4 mmol/L (21-32); CHLORIDE 102 mmol/L (98-107); COR CA(FOR HYPOALB) 8.9 mg/dL (8.5-10.1); COR NA(FOR HYPERGLY) 137 mmol/L (136-145); CREATININE 0.58 mg/dL (0.70-1.30); MAGNESIUM 1.9 mg/dL (1.7-2.9); SODIUM 134 mmol/L (136-145); TOTAL PROTEIN 5.6 g/dL (6.4-8.2); eGFR NON BLACK RACES > 60 (>60)
[2019-12-05] MEDS ORDERED: MORPHINE SULFATE INJ 2 MG INJ IVP PRN (08:27)
[2019-12-05] MEDS ORDERED: PROTONIX TAB 40 MG PO SCH (09:00)
--- NOTE | 2019-12-05 09:11 | DR.H&P ---
H&P History & Physical for Day of: H&P Date: 12/05/19 Chief Complaint Chief Complaint: abdominal pain, elevated blood sugar Allergies Allergies Allergy/AdvReac Type Severity Reaction Status Date / Time No Known Drug Allergies Allergy Verified 03/07/19 22:26 History of Present Illness History of Present Illness: Mr. Sanchez is a 49y/o male with a hx of uncontroll ed diabetes. He presented due to having elevated FS, reports being in the 600s yesterday. He takes Novolog R sliding scale and levemir 20 units BID but reports he ran out of levemir. He also has lower abdominal pain that has been intermittent for the past few months, worse yesterday. Denies N/V or diarrhea. He reports hx of PUD, denies melena or blood in stool. ED work-up - Labs: Glucose:828 Hgb: 13.4 K: 5.5 CO2:25.9 Patient received regular insulin and then started on insulin drip protocol. His glucose dropped down to the 200s. Earlier this morning, he had FS 47 and received D50 and it was back up in the 200s. Plan: due to moderate abdominal tenderness on exam, will get a CTAP with contrast, check anemia panel, fobt due to hx of PUD, denies ETOH use. Switch to SSI and stop insulin drip, monitor FS q4hrs, monitor AM labs. Past Medical History Past Medical History: Diabetes and GERD Additional Medical History: Opiate abuse, Diabetic Neuropathy Past Surgical History Surgical History: Cholecystectomy and Ortho Surgery Family History Family Medical History: Diabetes Mellitus Social History Does patient currently use any type of tobacco product: Yes Have you used tobacco products in the last 12 months: Yes Type of Tobacco Use: Cigarettes How many years tobacco product used: 20 Does any household member use tobacco: No Alcohol Use: DAILY Drug Use: Marijuana Medications Home Medications: No Known Drug Allergies Allergy (Verified 03/07/19 22:26) Labs Result Diagrams: 12/05/19 06:55 12/05/19 06:55 Labs: Laboratory WBC 6.7 X10^3/uL (3.6-10.0) 12/05/19 06:55 RBC 4.23 X10^6/uL (4.7-6.0) L 12/05/19 06:55 Hgb 12.7 g/dL (13.5-18.0) L 12/05/19 06:55 Hct 38.0 % (42.0-54.0) L 12/05/19 06:55 MCV 89.8 fL (80.0-100.0) 12/05/19 06:55 MCH 30.1 pg (27.0-34.0) 12/05/19 06:55 MCHC 33.5 g/dL (33.0-35.0) 12/05/19 06:55 RDW 13.2 % (11.6-16.5) 12/05/19 06:55 Plt Count 332 X10^3/uL (150.0-450.0) 12/05/19 06:55 MPV 7.7 fL (7.4-11.0) 12/05/19 06:55 Neut % (Auto) 56.1 % (42.0-75.0) 12/05/19 06:55 Lymph % (Auto) 28.9 % (21.0-51.0) 12/05/19 06:55 [place] % (Auto) 12.0 % (0.0-13.0) 12/05/19 06:55 Eos % (Auto) 1.6 % (0.9-2.9) 12/05/19 06:55 Baso % (Auto) 1.4 % (0.2-1.0) H 12/05/19 06:55 Neut # (Auto) 3.7 x10^3/uL (2.2-4.8) 12/05/19 06:55 Lymph # (Auto) 1.9 X10^3/uL (1.3-2.9) 12/05/19 06:55 [place] # (Auto) 0.8 x10^3/uL (0.3-0.8) 12/05/19 06:55 Eos # (Auto) 0.1 x10^3/uL (0.0-0.2) 12/05/19 06:55 Baso # (Auto) 0.1 X10^3/uL (0.0-0.1) 12/05/19 06:55 Absolute Nucleated RBC 0.0 /100WBC 12/05/19 06:55 Sodium 134 mmol/L (136-145) L 12/05/19 06:55 Corrected Sodium 137 mmol/L (136-145) 12/05/19 06:55 Potassium 4.5 mmol/L (3.5-5.1) 12/05/19 06:55 Chloride 102 mmol/L (98-107) 12/05/19 06:55 Carbon Dioxide 22.4 mmol/L (21-32) 12/05/19 06:55 BUN 13 mg/dL (7-18) 12/05/19 06:55 Creatinine 0.58 mg/dL (0.70-1.30) L 12/05/19 06:55 Est GFR (MDRD) Af Amer > 60 (>60) 12/05/19 06:55 Est GFR (MDRD) Non-Af > 60 (>60) 12/05/19 06:55 Glucose 225 mg/dL (65-99) H 12/05/19 06:55 POC Glucose (mg/dL) 296 mg/dL (65-99) H 12/05/19 08:30 Hemoglobin A1c 10.9 % 12/05/19 06:55 Lactic Acid 2.1 mmol/L (0.4-2.0) H 12/04/19 18:28 Calcium 7.9 mg/dL (8.5-10.1) L 12/05/19 06:55 Corrected Calcium 8.9 mg/dL (8.5-10.1) 12/05/19 06:55 Magnesium 1.9 mg/dL (1.7-2.9) 12/05/19 06:55 Total Bilirubin 0.50 mg/dL (0.2-1.0) 12/05/19 06:55 AST 24 Units/L (15-37) 12/05/19 06:55 ALT 23 Units/L (12-78) 12/05/19 06:55 Alkaline Phosphatase 82 Units/L (46-116) 12/05/19 06:55 Total Protein 5.6 g/dL (6.4-8.2) L 12/05/19 06:55 Albumin 2.7 g/dL (3.4-5.0) L 12/05/19 06:55 Globulin 2.9 g/dL (2.5-4.5) 12/05/19 06:55 Albumin/Globulin Ratio 0.9 Ratio (1.1-2.1) L 12/05/19 06:55 Specimen Type Clean catch urine 12/04/19 18:32 Urine Color Yellow (YELLOW) 12/04/19 18:32 Urine Appearance Clear (CLEAR) 12/04/19 18:32 Urine pH 5.0 (5.0 - 8.0) 12/04/19 18:32 Ur Specific [place] 1.010 (1.000-1.030) 12/04/19 18:32 Urine Protein Negative (NEGATIVE) 12/04/19 18:32 Urine Glucose (UA) 4+ (NEGATIVE) 12/04/19 18:32 Urine Ketones 1+ (NEGATIVE) 12/04/19 18:32 Urine Occult Blood Negative (NEGATIVE) 12/04/19 18:32 Urine Nitrite Negative (NEGATIVE) 12/04/19 18:32 Urine Bilirubin Negative (NEGATIVE) 12/04/19 18:32 Urine Urobilinogen Normal (NORMAL) 12/04/19 18:32 Ur Leukocyte Esterase Negative (NEGATIVE) 12/04/19 18:32 Acetone, Semi-Quant Small (NEGATIVE) H 12/04/19 18:28 Review of Systems Constitutional: Weakness Eyes: No Symptoms Reported ENT: No Symptoms Reported Respiratory: No Symptoms Reported Cardiovascular: No Symptoms Reported Gastrointestinal: Abdominal Pain Genitourinary: No Symptoms Reported Musculoskeletal: Back Pain Skin: No Symptoms Reported Neurological: No Symptoms Reported Physical Exam Vital Signs: Temperature 98.2 F Pulse Rate [Right Brachial] 83 Pulse Rate 102 Respiratory Rate 18 Blood Pressure [Left Arm] 104/57 Blood Pressure 113/66 O2 Sat by Pulse Oximetry 99 Oriented: Normal Eyes: Normal Respiratory: Clear Throughout Cardiovascular: Tachycardia Auscultation: Bowel Sounds: Normal Tenderness: RLQ, LLQ, Periumbilical, Suprapubic and Moderate Skin: Normal Musculoskeletal: Normal Psychiatric: Normal Mood Description: Calm Speech Pattern: Clear and Appropriate Assessment/Plan (1) Hyperosmolar non-ketotic state due to type 2 diabetes mellitus: Status: Acute (2) Abdominal pain: Qualifiers: Abdominal location: lower abdomen, unspecified Qualified Code(s): R10.30 - Lower abdominal pain, unspecified Status: Acute (3) Hyperkalemia: Status: Acute (4) Anemia: Qualifiers: Anemia type: unspecified type Qualified Code(s): D64.9 - Anemia, unspecified Status: Acute (5) Uncontrolled diabetes mellitus: Qualifiers: Diabetes mellitus type: type 2 Glycemic state: with hyperglycemia Qualified Code(s): E11.65 - Type 2 diabetes mellitus with hyperglycemia Status: Acute Review H&P Reviewed: Yes Patient was examined?: Yes
[2019-12-05 10:17] VITALS: BMI 18.7
[2019-12-05] MEDS: HumuLIN R SC PRN ×3 (12:58→20:46)
--- NOTE | 2019-12-05 13:20 | CT ---
HISTORYSEVERE DIFFUSE ABDOMINAL PAINSTUDYABDOMEN/PELVIS WITH CONCOMPARISONNoneTECHNIQUEAxial images through the abdomen and pelvis were performed without intravenous contrast.CT scan was performed following ALARA (As low as Reasonably Achievable).Coronal and Sagittal reformatted images were performed..FINDINGSThe lung bases are clear. The liver, spleen and pancreas demonstrate no focal lesions patient's is status post cholecystectomy,there is no significant extrahepatic biliary dilatation with minimal intrahepatic central biliary dilatation. There is no adrenal masses. There are bilateral normal enhancing kidneys without hydronephrosisThere is severe thickening of the wall of the stomach fundus, body as well as the antrum. There is no evidence of air in the wal.The stomach is not significantly distended and partially decompressed. There is no abnormal dilated small bowel loops no colitis. There is no evidence of free air. No secondary signs of appendicitisNo focal aneurysm of the abdominal aorta. No retroperitoneal massesPelvis there is a small amount of free fluid in the cul-de-sac. The prostate is not enlarged urinary bladder is mildly distended. There is no pelvic or inguinal adenopathyBone windows no aggressive bone lesions.IMPRESSIONDiffuse wall thickening and mild enhancement of the stomach wall, considersevere gastritis,no air in the stomach wall. No free fluid.Status post cholecystectomy minimal intrahepatic biliary dilatationElectronically signed by: Adali Pulliam (Dec 05, 2019 13:18:47)
[2019-12-05] MEDS: ZESTRIL TAB 5 MG PO SCH (14:13)
[2019-12-05] MEDS: CYMBALTA PO SCH ×2 (14:13→20:45)
[2019-12-05] MEDS: PEPCID TAB 20 MG PO SCH (15:26)
[2019-12-05] MEDS: MORPHINE SULFATE INJ 2 MG INJ IVP PRN ×2 (15:30→21:45)
[2019-12-05] MEDS: CARAFATE PO SCH ×2 (16:34→20:45)
[2019-12-05] MEDS ORDERED: PROTONIX TAB 40 MG PO ONE (19:36)
[2019-12-05] MEDS ORDERED: SNACK - Diabetic Appropriate PO SCH (20:00)
[2019-12-05] MEDS: PROTONIX TAB 40 MG PO SCH (20:45)
[2019-12-06] MEDS ORDERED: NS 1/2 1000 ML IV 1,000 ML IV ONE (04:34)
[2019-12-06] MEDS: MORPHINE SULFATE INJ 2 MG INJ IVP PRN ×2 (04:35→11:06)
[2019-12-06] MEDS: NS 1/2 1000 ML IV 1,000 ML IV SCH (04:52)
[2019-12-06] MEDS: CARAFATE PO SCH ×2 (06:00→11:05)
[2019-12-06] MEDS: HumuLIN R SC PRN (06:01)
[2019-12-06 06:04] VITALS: BP 139/84
[2019-12-06 06:38] LABS: BASOPHILS # (AUTO) 0.1 X10^3/uL (0.0-0.1); BASOPHILS % (AUTO) 1.1 % (0.2-1.0); EOSINOPHILS # (AUTO) 0.1 x10^3/uL (0.0-0.2); EOSINOPHILS % (AUTO) 1.7 % (0.9-2.9); HEMATOCRIT 38.1 % (42.0-54.0); HEMOGLOBIN 12.9 g/dL (13.5-18.0); LYMPHOCYTES # (AUTO) 1.8 X10^3/uL (1.3-2.9); LYMPHOCYTES % (AUTO) 28.6 % (21.0-51.0); MEAN CORPUSCULAR HEMOGLOBIN 30.4 pg (27.0-34.0); MEAN CORPUSCULAR HGB CONC 33.8 g/dL (33.0-35.0); MEAN CORPUSCULAR VOLUME 90.1 fL (80.0-100.0); MONOCYTES # (AUTO) 0.7 x10^3/uL (0.3-0.8); NEUTROPHILS # (AUTO) 3.7 x10^3/uL (2.2-4.8); NEUTROPHILS % (AUTO) 57.6 % (42.0-75.0); PLATELET COUNT 375 X10^3/uL (150.0-450.0); RED BLOOD COUNT 4.23 X10^6/uL (4.7-6.0); RED CELL DISTRIBUTION WIDTH 12.8 % (11.6-16.5); WHITE BLOOD COUNT 6.4 X10^3/uL (3.6-10.0)
[2019-12-06 06:47] LABS: ALANINE AMINOTRANSFERASE 25 Units/L (12-78); ALBUMIN 2.6 g/dL (3.4-5.0); ALKALINE PHOSPHATASE 86 Units/L (46-116); ASPARTATE AMINO TRANSFERASE 23 Units/L (15-37); BLOOD UREA NITROGEN 12 mg/dL (7-18); CALCIUM 7.8 mg/dL (8.5-10.1); CARBON DIOXIDE 24.5 mmol/L (21-32); CHLORIDE 100 mmol/L (98-107); COR CA(FOR HYPOALB) 8.9 mg/dL (8.5-10.1); COR NA(FOR HYPERGLY) 139 mmol/L (136-145); CREATININE 0.59 mg/dL (0.70-1.30); MAGNESIUM 2.4 mg/dL (1.7-2.9); SODIUM 132 mmol/L (136-145); TOTAL PROTEIN 5.4 g/dL (6.4-8.2); eGFR NON BLACK RACES > 60 (>60)
[2019-12-06] MEDS ORDERED: LEVEMIR SC SCH (09:00)
[2019-12-06] MEDS ORDERED: LANTUS SC SCH (09:00)
[2019-12-06] MEDS ORDERED: FERROUS GLUCONATE PO SCH (09:00)
[2019-12-06] MEDS: PROTONIX TAB 40 MG PO SCH (10:44)
[2019-12-06] MEDS: CYMBALTA PO SCH (10:45)
[2019-12-06] MEDS: ZESTRIL TAB 5 MG PO SCH (10:46)
[2019-12-06] MEDS: PEPCID TAB 20 MG PO SCH (10:46)
--- NOTE | 2019-12-06 11:41 | W.DIS.FURT ---
Summary of Discharge Admission Diagnosis Patient Problems (Updated 12/05/19 @ 09:49 by Stephany Chu) Anemia (Acute) D64.9 Hyperkalemia (Acute) E87.5 Abdominal pain (Acute) R10.9 Uncontrolled diabetes mellitus (Acute) E11.65 Hyperosmolar non-ketotic state due to type 2 diabetes mellitus (Acute) E11.00 Acute hyperglycemia (Acute) R73.9 Abdominal pain (Acute) R10.9 Costovertebral angle pain (Acute) M54.9 Vital Signs: Vital Signs (72 hours) 12/04/19 18:07 12/04/19 21:51 12/05/19 00:00 Temperature 98.1 F Pulse Rate 102 H Pulse Rate [Right Brachial] 87 97 H Respiratory Rate 16 20 20 Blood Pressure 113/66 Blood Pressure [Left Arm] 112/74 O2 Sat by Pulse Oximetry 98 98 98 12/05/19 01:00 12/05/19 02:00 12/05/19 03:00 Temperature 97.6 F Pulse Rate Pulse Rate [Right Brachial] 92 H 86 85 Respiratory Rate 18 18 18 Blood Pressure Blood Pressure [Left Arm] 116/76 112/70 114/60 O2 Sat by Pulse Oximetry 97 97 97 12/05/19 04:00 12/05/19 05:18 12/05/19 06:00 Temperature 98.2 F Pulse Rate Pulse Rate [Right Brachial] 84 87 83 Respiratory Rate 20 18 18 Blood Pressure Blood Pressure [Left Arm] 102/58 99/62 104/57 O2 Sat by Pulse Oximetry 96 96 99 12/05/19 07:00 12/05/19 08:00 12/05/19 09:00 Temperature 97.5 F L Pulse Rate Pulse Rate [Right Brachial] 83 86 89 Respiratory Rate 18 20 20 Blood Pressure Blood Pressure [Left Arm] 109/59 112/63 110/65 O2 Sat by Pulse Oximetry 96 99 99 12/05/19 09:36 12/05/19 10:00 12/05/19 10:06 Temperature Pulse Rate Pulse Rate [Right Brachial] 74 Respiratory Rate 18 20 18 Blood Pressure Blood Pressure [Left Arm] 112/68 O2 Sat by Pulse Oximetry 100 12/05/19 11:00 12/05/19 12:00 12/05/19 13:00 Temperature 97.9 F Pulse Rate Pulse Rate [Right Brachial] 76 84 96 H Respiratory Rate 18 18 18 Blood Pressure Blood Pressure [Left Arm] 110/67 110/65 121/75 O2 Sat by Pulse Oximetry 100 100 100 12/05/19 14:00 12/05/19 15:00 12/05/19 15:30 Temperature Pulse Rate Pulse Rate [Right Brachial] 103 H 96 H Respiratory Rate 18 18 20 Blood Pressure Blood Pressure [Left Arm] 123/70 108/65 O2 Sat by Pulse Oximetry 100 99 12/05/19 16:00 12/05/19 17:00 12/05/19 18:00 Temperature 98.0 F Pulse Rate Pulse Rate [Right Brachial] 92 H 92 H 92 H Respiratory Rate 18 18 20 Blood Pressure Blood Pressure [Left Arm] 120/90 127/73 110/62 O2 Sat by Pulse Oximetry 98 98 98 12/05/19 19:00 12/05/19 20:00 12/05/19 21:00 Temperature 98.3 F Pulse Rate Pulse Rate [Right Brachial] 100 H 92 H 94 H Respiratory Rate 18 16 14 Blood Pressure Blood Pressure [Left Arm] 115/73 122/71 114/67 O2 Sat by Pulse Oximetry 95 98 98 12/05/19 21:45 12/05/19 22:00 12/05/19 22:15 Temperature Pulse Rate Pulse Rate [Right Brachial] 83 Respiratory Rate 20 14 16 Blood Pressure Blood Pressure [Left Arm] 130/78 O2 Sat by Pulse Oximetry 100 12/05/19 23:00 12/06/19 00:00 12/06/19 01:00 Temperature 98.1 F Pulse Rate Pulse Rate [Right Brachial] 90 84 85 Respiratory Rate 14 16 16 Blood Pressure Blood Pressure [Left Arm] 114/62 106/59 116/70 O2 Sat by Pulse Oximetry 98 98 97 12/06/19 02:00 12/06/19 03:00 12/06/19 04:00 Temperature Pulse Rate Pulse Rate [Right Brachial] 81 84 91 H Respiratory Rate 11 L 11 L 14 Blood Pressure Blood Pressure [Left Arm] 127/73 130/80 130/73 O2 Sat by Pulse Oximetry 98 96 96 12/06/19 04:35 12/06/19 05:00 12/06/19 05:05 Temperature Pulse Rate Pulse Rate [Right Brachial] 88 Respiratory Rate 16 14 12 Blood Pressure Blood Pressure [Left Arm] 123/74 O2 Sat by Pulse Oximetry 97 12/06/19 06:00 12/06/19 11:06 Temperature Pulse Rate Pulse Rate [Right Brachial] 85 Respiratory Rate 12 20 Blood Pressure Blood Pressure [Left Arm] 139/84 O2 Sat by Pulse Oximetry 96 Labs: Laboratory Last Values WBC 6.4 X10^3/uL (3.6-10.0) 12/06/19 05:39 RBC 4.23 X10^6/uL (4.7-6.0) L 12/06/19 05:39 Hgb 12.9 g/dL (13.5-18.0) L 12/06/19 05:39 Hct 38.1 % (42.0-54.0) L 12/06/19 05:39 MCV 90.1 fL (80.0-100.0) 12/06/19 05:39 MCH 30.4 pg (27.0-34.0) 12/06/19 05:39 MCHC 33.8 g/dL (33.0-35.0) 12/06/19 05:39 RDW 12.8 % (11.6-16.5) 12/06/19 05:39 Plt Count 375 X10^3/uL (150.0-450.0) 12/06/19 05:39 MPV 8.0 fL (7.4-11.0) 12/06/19 05:39 Neut % (Auto) 57.6 % (42.0-75.0) 12/06/19 05:39 Lymph % (Auto) 28.6 % (21.0-51.0) 12/06/19 05:39 [place] % (Auto) 11.0 % (0.0-13.0) 12/06/19 05:39 Eos % (Auto) 1.7 % (0.9-2.9) 12/06/19 05:39 Baso % (Auto) 1.1 % (0.2-1.0) H 12/06/19 05:39 Neut # (Auto) 3.7 x10^3/uL (2.2-4.8) 12/06/19 05:39 Lymph # (Auto) 1.8 X10^3/uL (1.3-2.9) 12/06/19 05:39 [place] # (Auto) 0.7 x10^3/uL (0.3-0.8) 12/06/19 05:39 Eos # (Auto) 0.1 x10^3/uL (0.0-0.2) 12/06/19 05:39 Baso # (Auto) 0.1 X10^3/uL (0.0-0.1) 12/06/19 05:39 Absolute Nucleated RBC 0.3 /100WBC 12/06/19 05:39 Sodium 132 mmol/L (136-145) L 12/06/19 05:39 Corrected Sodium 139 mmol/L (136-145) 12/06/19 05:39 Potassium 4.1 mmol/L (3.5-5.1) 12/06/19 05:39 Chloride 100 mmol/L (98-107) 12/06/19 05:39 Carbon Dioxide 24.5 mmol/L (21-32) 12/06/19 05:39 BUN 12 mg/dL (7-18) 12/06/19 05:39 Creatinine 0.59 mg/dL (0.70-1.30) L 12/06/19 05:39 Est GFR (MDRD) Af Amer > 60 (>60) 12/06/19 05:39 Est GFR (MDRD) Non-Af > 60 (>60) 12/06/19 05:39 Glucose 373 mg/dL (65-99) H 12/06/19 05:39 POC Glucose (mg/dL) 206 mg/dL (65-99) H 12/06/19 11:04 Hemoglobin A1c 10.9 % 12/05/19 06:55 Lactic Acid 2.1 mmol/L (0.4-2.0) H 12/04/19 18:28 Calcium 7.8 mg/dL (8.5-10.1) L 12/06/19 05:39 Corrected Calcium 8.9 mg/dL (8.5-10.1) 12/06/19 05:39 Magnesium 2.4 mg/dL (1.7-2.9) 12/06/19 05:39 Iron 49 ug/dL (50-175) L 12/05/19 09:23 Transferrin 213 mg/dL (202-364) 12/05/19 09:23 Ferritin 100 ng/mL (26-388) 12/05/19 09:23 Total Bilirubin 0.20 mg/dL (0.2-1.0) 12/06/19 05:39 AST 23 Units/L (15-37) 12/06/19 05:39 ALT 25 Units/L (12-78) 12/06/19 05:39 Alkaline Phosphatase 86 Units/L (46-116) 12/06/19 05:39 Total Protein 5.4 g/dL (6.4-8.2) L 12/06/19 05:39 Albumin 2.6 g/dL (3.4-5.0) L 12/06/19 05:39 Globulin 2.8 g/dL (2.5-4.5) 12/06/19 05:39 Albumin/Globulin Ratio 0.9 Ratio (1.1-2.1) L 12/06/19 05:39 Vitamin B12 278 pg/mL (193-986) 12/05/19 09:23 Folate 14.8 ng/mL (>8.6) 12/05/19 09:23 Specimen Type Clean catch urine 12/04/19 18:32 Urine Color Yellow (YELLOW) 12/04/19 18:32 Urine Appearance Clear (CLEAR) 12/04/19 18:32 Urine pH 5.0 (5.0 - 8.0) 12/04/19 18:32 Ur Specific [place] 1.010 (1.000-1.030) 12/04/19 18:32 Urine Protein Negative (NEGATIVE) 12/04/19 18:32 Urine Glucose (UA) 4+ (NEGATIVE) 12/04/19 18:32 Urine Ketones 1+ (NEGATIVE) 12/04/19 18:32 Urine Occult Blood Negative (NEGATIVE) 12/04/19 18:32 Urine Nitrite Negative (NEGATIVE) 12/04/19 18:32 Urine Bilirubin Negative (NEGATIVE) 12/04/19 18:32 Urine Urobilinogen Normal (NORMAL) 12/04/19 18:32 Ur Leukocyte Esterase Negative (NEGATIVE) 12/04/19 18:32 Acetone, Semi-Quant Small (NEGATIVE) H 12/04/19 18:28 Reason For Visit: HYPERGLYCEMA,ABDOMINAL PAIN Discharge Diagnosis All Active Problems (Updated 12/05/19 @ 09:49 by Stephany Chu) Anemia (Acute) Hyperkalemia (Acute) Abdominal pain (Acute) Uncontrolled diabetes mellitus (Acute) Hyperosmolar non-ketotic state due to type 2 diabetes mellitus (Acute) DKA (diabetic ketoacidoses) (Acute) Anxiety (Chronic) Depression (Chronic) Diabetes mellitus (Chronic) Restless leg syndrome (Chronic) Insomnia (Chronic) Chronic pain (Chronic) DKA (diabetic ketoacidoses) (Acute) Abdominal pain (Acute) Type 1 diabetes mellitus (Acute) Dehydration (Acute) Acute renal failure (Acute) Hyponatremia (Acute) Acute hyperglycemia (Acute) Abdominal pain (Acute) Costovertebral angle pain (Acute) Plan of Treatment: Continue with present treatment and follow up plan. Pt is to keep follow up appointment as instructed and take medications as ordered. Discharge Medications Discharge Medications: No Known Drug Allergies Allergy (Verified 03/07/19 22:26) New Prescriptions famotidine 40 mg PO DAILY 30 Days #30 tab 12/06/19 [Rx] famotidine 40 mg PO QHS #30 tab 12/06/19 [Rx] ferrous gluconate 324 mg PO DAILY 30 Days #30 tab 12/06/19 [Rx] insulin detemir U-100 [Levemir U-100 Insulin] 20 unit SUBCUT QAM 30 Days #10 ml 12/06/19 [Rx] lisinopril 5 mg PO DAILY 30 Days #30 tab 12/06/19 [Rx] pantoprazole 40 mg PO BID #60 tab 12/06/19 [Rx] pantoprazole 40 mg PO BID 30 Days #60 tab 12/06/19 [Rx] sucralfate 1 g PO ACHS 30 Days #90 tab 12/06/19 [Rx] sucralfate [Carafate] 1 g PO TID #90 tab 12/06/19 [Rx] Discharge Disposition Assessment: Patient stable no acute distress noted at time of discharge.
[2019-12-06] MEDS ORDERED: SNACK - Diabetic Appropriate PO SCH ×2 (20:00)
== END 2019-12-06 13:05 | disposition home or self-care (01) | DRG 639 ==
LOC: ER 17:51 → MED/SURG 20:55
PROVIDERS: ADMIT Internal Medicine; ATTEND Internal Medicine
CPT/HCPCS: 36415; 74177; 80053; 81003; 82009; 82607; 82728; 82746; 83036; 83540; 83605; 83735; 84466; 85025; 96365; 96367; 96374; 96375; 99285; A4222; J1815; J2270; J2405; J3490; J7030; J7050

== ENCOUNTER 2020-01-16 10:09 | Inpatient (IN) ==
[2020-01-16] MEDS ORDERED: NS 1000 ML 1,000 ML ONE ×2 (10:13→12:11)
[2020-01-16 10:57] VITALS: BMI 22.6
[2020-01-16] MEDS ORDERED: NS 1000 ML 1,000 ML IV ONE (10:59)
[2020-01-16] MEDS ORDERED: HumuLIN R ONE ×2 (11:15→11:22)
[2020-01-16 11:17] LABS: SERUM ACETONE MODERATE (NEGATIVE)
--- NOTE | 2020-01-16 11:19 | DR.HYPOGLY ---
HPI Time Seen Time Seen by Provider: 01/16/20 10:36 PCP Primary Care Physician: NFD Complaint Chief Complaint Doctors Comments: A 49 y/o male with known hx. of Diabetes. He had called the EMS with information that his fingerstick readings are high. The numbers have been reading high for a few days. He has had increased thirst. Chief Complaint:: [facility] WAS DISPATCHED TO PATIENT WITH C/O HIGH GLUCOSE. ONCE ON [facility] CHECKED BLOOD GLUCOSE AND STATED THAT IT READ HIGH. PATIENT STATES THAT HE HAS BEEN LIKE THIS FOR A COUPLE OF DAYS AND HE IS UNABLE TO STATE WHEN THE LAST TIME HE HAS HAD ANY INSULIN. PATIENT ALSO HAS C/O OF BACK PAIN. COVID-19 Coronavirus risk:travel/contact w/high risk person: No Has patient experienced Coronavirus symptoms: No Nurses notes reviewed Nurses Notes Review: Yes Source History Provided: Patient and EMS Mode of Arrival Mode of Arrival: EMS Timing Onset of Chief Complaint: 01/16/20 Context [place]: denies Shaky, Confused, Found disoriented and Found unresponsive Symptoms: None History of: Insulin use and Hyperglycemic episodes Prehospital care: None Modifying factors Improves: Nothing PMH PMH Past Medical History: Yes Past Medical History: Diabetes Past Surgical History: Yes Surgical History: Unknown Family History History of Family Medical Conditions: Yes Family Medical History: Diabetes Mellitus Social History Alcohol Use: None Do you use any recreational Drugs:: Yes (THC) Travel Risk Coronavirus risk:travel/contact w/high risk person: No Has patient experienced Coronavirus symptoms: No Infectious screening Have you traveled outside the country in the last 6 months?: No Isolation: Standard ROS Review of Systems Constitutional: No Symptoms Reported Eyes: No Symptoms Reported ENTM: No Symptoms Reported Respiratoy: No Symptoms Reported Cardiovascular: No Symptoms Reported Gastrointestinal/Abdominal: No Symptoms Reported Genitourinary: No Symptoms Reported Neurological: No Symptoms Reported Musculoskeletal: No Symptoms Reported Integumentary: No Symptoms Reported Hematologic/Lymphatic: No Symptoms Reported Endocrine: No Symptoms Reported Psychiatric: No Symptoms Reported PE Vital Signs Vitals: Temperature 98.6 F Pulse Rate 121 Respiratory Rate 26 Blood Pressure [Left Arm] 139/84 Blood Pressure [Right Arm] 124/75 Blood Pressure [Right Arm] 113/72 Blood Pressure 137/57 O2 Sat by Pulse Oximetry 100 General Limitations: No Limitations General Appearance: Alert and In No Apparent Distress Eyes Eye exam: Normal Appearance and EOMI ENT ENT Exam: Normal Exam, Normal Oropharynx, Normal External Ear Exam and Mucous Membranes Moist Neck Neck Exam: Normal Inspection, Full ROM and Trachea Midline Chest Chest Inspection: Normal Inspection and Symmetric Chest Wall Rise Respiratory Respiratory Exam: Normal Lung Sounds Bilat and Other (Tachypneic) Cardiovascular Cardiovascular Exam: Regular Rate, Normal Rhythm, Normal Heart Sounds, +S1 and +S2 Abdominal Exam Abdominal Exam: Normal Inspection, Normal Bowel Sounds and Soft Extremities Extremities Exam: Normal Inspection and Full ROM Back Back Exam: Normal Inspection and Full ROM Neurologic Neurological Exam: Alert and Oriented X3 Speech: Fluid Speech Psychiatric Psychiatric Exam: Normal Affect and Normal Mood Skin Skin Exam: Dry and Normal Color COURSE Treatment Treatment: Findings were discussed with his PCP(Dr. Chu). She agrees with recommendation for hospitalization. Reevaluation 1st: Unchanged Education/Counseling Education/Counseling: Patient, Education and Counseling Educated On: Treatment, Diagnosis, Prognosis and Needs for Follow Up ROR Labs Reviewed Result Diagrams: 01/16/20 11:05 01/16/20 11:05 Laboratory: WBC 39.9 X10^3/uL (3.6-10.0) H* 01/16/20 11:05 RBC 4.62 X10^6/uL (4.7-6.0) L 01/16/20 11:05 Hgb 14.0 g/dL (13.5-18.0) 01/16/20 11:05 Hct 47.6 % (42.0-54.0) 01/16/20 11:05 MCV 103.1 fL (80.0-100.0) H 01/16/20 11:05 MCH 30.3 pg (27.0-34.0) 01/16/20 11:05 MCHC 29.4 g/dL (33.0-35.0) L 01/16/20 11:05 RDW 14.0 % (11.6-16.5) 01/16/20 11:05 Plt Count 224 X10^3/uL (150.0-450.0) 01/16/20 11:05 Plt Count Comment Adequate (ADEQUATE) 01/16/20 11:05 MPV 9.6 fL (7.4-11.0) 01/16/20 11:05 Neut % (Auto) 77.6 % (42.0-75.0) H 01/16/20 11:05 Lymph % (Auto) 13.7 % (21.0-51.0) L 01/16/20 11:05 [place] % (Auto) 6.4 % (0.0-13.0) 01/16/20 11:05 Eos % (Auto) 1.3 % (0.9-2.9) 01/16/20 11:05 Baso % (Auto) 1.0 % (0.2-1.0) 01/16/20 11:05 Neut # (Auto) 31.0 x10^3/uL (2.2-4.8) H 01/16/20 11:05 Lymph # (Auto) 5.5 X10^3/uL (1.3-2.9) H 01/16/20 11:05 [place] # (Auto) 2.6 x10^3/uL (0.3-0.8) H 01/16/20 11:05 Eos # (Auto) 0.5 x10^3/uL (0.0-0.2) H 01/16/20 11:05 Baso # (Auto) 0.4 X10^3/uL (0.0-0.1) H 01/16/20 11:05 Absolute Nucleated RBC 0.1 /100WBC 01/16/20 11:05 Total Counted 100 01/16/20 11:05 Neutrophils % (Manual) 69 % (39-76) 01/16/20 11:05 Band Neutrophils % 10 % (0-10) 01/16/20 11:05 Lymphocytes % (Manual) 14 % (13-43) 01/16/20 11:05 Monocytes % (Manual) 5 % (4-9) 01/16/20 11:05 Eosinophils % (Manual) 2 % (0-6) 01/16/20 11:05 Plt Morphology Comment Normal (NORMAL) 01/16/20 11:05 RBC Morphology Normal (NORMAL) 01/16/20 11:05 Sodium 135 mmol/L (136-145) L 01/16/20 11:05 Corrected Sodium 154 mmol/L (136-145) H 01/16/20 11:05 Potassium 5.8 mmol/L (3.5-5.1) H 01/16/20 11:05 Chloride 97 mmol/L (98-107) L 01/16/20 11:05 Carbon Dioxide < 5.0 mmol/L (21-32) L* 01/16/20 11:05 BUN 24 mg/dL (7-18) H 01/16/20 11:05 Creatinine 2.02 mg/dL (0.70-1.30) H 01/16/20 11:05 Est GFR (MDRD) Af Amer 45 (>60) L 01/16/20 11:05 Est GFR (MDRD) Non-Af 38 (>60) L 01/16/20 11:05 Glucose 910 mg/dL (65-99) H* 01/16/20 11:05 POC Glucose (mg/dL) > 600 mg/dL (65-99) 01/16/20 11:09 Calcium 8.7 mg/dL (8.5-10.1) 01/16/20 11:05 Corrected Calcium 9.4 mg/dL (8.5-10.1) 01/16/20 11:05 Total Bilirubin 0.60 mg/dL (0.2-1.0) 01/16/20 11:05 AST 28 Units/L (15-37) 01/16/20 11:05 ALT 27 Units/L (12-78) 01/16/20 11:05 Alkaline Phosphatase 129 Units/L (46-116) H 01/16/20 11:05 Total Protein 6.3 g/dL (6.4-8.2) L 01/16/20 11:05 Albumin 3.1 g/dL (3.4-5.0) L 01/16/20 11:05 Globulin 3.2 g/dL (2.5-4.5) 01/16/20 11:05 Albumin/Globulin Ratio 1.0 Ratio (1.1-2.1) L 01/16/20 11:05 Acetone, Semi-Quant Moderate (NEGATIVE) H 01/16/20 11:05 Opioid Opioid Risk Tool Age (Abel box if 16-45): No History of Preadolescent Sexual Abuse: No Total: 0 Total Score Risk Category: Low Risk Copyright: Mariusz ARREAGA predicting aberrant behaviors Diagnosis Discharge Problem: DKA (diabetic ketoacidoses)
[2020-01-16] MEDS ORDERED: HumuLIN R SUBCUT ONE (11:20)
[2020-01-16 11:22] LABS: ALANINE AMINOTRANSFERASE 27 Units/L (12-78); ALBUMIN 3.1 g/dL (3.4-5.0); ALKALINE PHOSPHATASE 129 Units/L (46-116); ASPARTATE AMINO TRANSFERASE 28 Units/L (15-37); BLOOD UREA NITROGEN 24 mg/dL (7-18); CALCIUM 8.7 mg/dL (8.5-10.1); CHLORIDE 97 mmol/L (98-107); COR CA(FOR HYPOALB) 9.4 mg/dL (8.5-10.1); CREATININE 2.02 mg/dL (0.70-1.30); SODIUM 135 mmol/L (136-145); TOTAL PROTEIN 6.3 g/dL (6.4-8.2); eGFR NON BLACK RACES 38 (>60)
[2020-01-16 11:28] LABS: BASOPHILS # (AUTO) 0.4 X10^3/uL (0.0-0.1); EOSINOPHILS # (AUTO) 0.5 x10^3/uL (0.0-0.2); EOSINOPHILS % (AUTO) 1.3 % (0.9-2.9); HEMATOCRIT 47.6 % (42.0-54.0); LYMPHOCYTES # (AUTO) 5.5 X10^3/uL (1.3-2.9); LYMPHOCYTES % (AUTO) 13.7 % (21.0-51.0); MEAN CORPUSCULAR HEMOGLOBIN 30.3 pg (27.0-34.0); MEAN CORPUSCULAR HGB CONC 29.4 g/dL (33.0-35.0); MEAN CORPUSCULAR VOLUME 103.1 fL (80.0-100.0); MEAN PLATELET VOLUME 9.6 fL (7.4-11.0); MONOCYTES # (AUTO) 2.6 x10^3/uL (0.3-0.8); MONOCYTES % (AUTO) 6.4 % (0.0-13.0); NEUTROPHILS % (AUTO) 77.6 % (42.0-75.0); PLATELET COUNT 224 X10^3/uL (150.0-450.0); RED BLOOD COUNT 4.62 X10^6/uL (4.7-6.0)
[2020-01-16 11:31] LABS: WHITE BLOOD COUNT 39.9 X10^3/uL (3.6-10.0)
[2020-01-16] MEDS ORDERED: SODIUM BICARBONATE 8.4% INJ ADULT IVP ONE ×2 (11:39→12:07)
[2020-01-16 11:41] LABS: COR NA(FOR HYPERGLY) 154 mmol/L (136-145)
[2020-01-16 11:42] LABS: CARBON DIOXIDE < 5.0 mmol/L (21-32)
[2020-01-16] MEDS ORDERED: MYXREDLIN 100 UNIT/100 ML BAG 100 UNIT/100 ML PLAST..BAG IV PRN (11:52)
[2020-01-16 11:56] LABS: BAND NEUTROPHILS % 10 % (0-10)
[2020-01-16 11:57] LABS: PLATELET MORPHOLOGY COMMENT NORMAL (NORMAL)
[2020-01-16] MEDS ORDERED: MYXREDLIN 100 UNIT/100 ML BAG 100 UNIT/100 ML PLAST..BAG IV ONE (12:03)
[2020-01-16 12:06] LABS: ABG ALLEN TEST POS; ABG HCO3 < 3.0 mmol/L (22-26)
--- NOTE | 2020-01-16 12:10 | RAD ---
HISTORYLEUKOCYTOSIS, HYPERGLYCEMIA, SOBSTUDYCHEST, 1 VIEWCOMPARISON[None.]TECHNIQUE[AP view of the chest.]FINDINGS[The cardiac and mediastinal contours are within normal limits. The lungs are clear without focal consolidation or segmental collapse. No pleural effusion or pneumothorax.]IMPRESSION[No acute pulmonary process.]Electronically signed by: Darrius Merino (Jan 16, 2020 12:08:51)
[2020-01-16] MEDS ORDERED: SODIUM BICARBONATE 8.4% INJ ADULT ONE (12:11)
[2020-01-16] MEDS: NS 1000 ML 1,000 ML IV SCH ×2 (12:37→20:30)
[2020-01-16 12:48] LABS: CKMB % 1.3 % (<4); CREATINE KINASE 79 Units/L (39-308); CREATINE KINASE MB < 1.0 ng/mL (0-4.0); TROPONIN I < 0.02 ng/mL (0-1.5)
[2020-01-16 16:22] LABS: CALCIUM 8.1 mg/dL (8.5-10.1); CREATININE 1.69 mg/dL (0.70-1.30)
[2020-01-16 16:25] LABS: CARBON DIOXIDE 13.6 mmol/L (21-32)
[2020-01-16 18:26] LABS: ABG BASE EXCESS -0.5 mmol/L (-2.0-2.0); ABG HCO3 22.9 mmol/L (22-26)
[2020-01-16] MEDS: SNACK - Diabetic Appropriate PO SCH (20:31)
[2020-01-17 00:33] LABS: BILIRUBIN,URINE NEGATIVE (NEGATIVE); BLOOD/HEMOGLOBIN,URINE NEGATIVE (NEGATIVE); GLUCOSE, URINE 3+ (NEGATIVE); KETONES,URINE 3+ (NEGATIVE); LEUKOCYTE ESTERASE ,URINE NEGATIVE (NEGATIVE); NITRITES,URINE NEGATIVE (NEGATIVE); PROTEIN,URINE 1+ (NEGATIVE); UROBILINOGEN,URINE NORMAL (NORMAL)
[2020-01-17 00:41] LABS: APPEARANCE,URINE CLEAR (CLEAR); COLOR,URINE YELLOW (YELLOW)
[2020-01-17 00:42] LABS: BACTERIA,URINE TRACE /HPF (NEGATIVE); RBC,URINE NONE SEEN /HPF (0-3); SQUAMOUS EPITHELIAL CELL,UR NEGATIVE /HPF (NEGATIVE)
[2020-01-17 04:11] LABS: ABG ALLEN TEST POS; ABG BASE EXCESS -3.6 mmol/L (-2.0-2.0); ABG HCO3 20.4 mmol/L (22-26)
[2020-01-17] MEDS: NS 1000 ML 1,000 ML IV SCH ×3 (04:46→19:29)
[2020-01-17 06:18] LABS: BASOPHILS # (AUTO) 0.1 X10^3/uL (0.0-0.1); BASOPHILS % (AUTO) 0.5 % (0.2-1.0); EOSINOPHILS % (AUTO) 0.2 % (0.9-2.9); HEMATOCRIT 38.5 % (42.0-54.0); HEMOGLOBIN 13.3 g/dL (13.5-18.0); LYMPHOCYTES # (AUTO) 3.8 X10^3/uL (1.3-2.9); LYMPHOCYTES % (AUTO) 18.4 % (21.0-51.0); MEAN CORPUSCULAR HEMOGLOBIN 30.5 pg (27.0-34.0); MEAN CORPUSCULAR HGB CONC 34.7 g/dL (33.0-35.0); MEAN PLATELET VOLUME 7.8 fL (7.4-11.0); MONOCYTES # (AUTO) 1.3 x10^3/uL (0.3-0.8); MONOCYTES % (AUTO) 6.3 % (0.0-13.0); NEUTROPHILS # (AUTO) 15.3 x10^3/uL (2.2-4.8); NEUTROPHILS % (AUTO) 74.6 % (42.0-75.0); PLATELET COUNT 144 X10^3/uL (150.0-450.0); RED BLOOD COUNT 4.37 X10^6/uL (4.7-6.0); RED CELL DISTRIBUTION WIDTH 13.2 % (11.6-16.5)
[2020-01-17 07:07] LABS: WHITE BLOOD COUNT 20.5 X10^3/uL (3.6-10.0)
[2020-01-17 07:08] LABS: ALANINE AMINOTRANSFERASE 22 Units/L (12-78); ALBUMIN 2.7 g/dL (3.4-5.0); ALKALINE PHOSPHATASE 82 Units/L (46-116); ASPARTATE AMINO TRANSFERASE 24 Units/L (15-37); BLOOD UREA NITROGEN 13 mg/dL (7-18); CALCIUM 8.1 mg/dL (8.5-10.1); CARBON DIOXIDE 20.6 mmol/L (21-32); CHLORIDE 103 mmol/L (98-107); COR CA(FOR HYPOALB) 9.1 mg/dL (8.5-10.1); CREATININE 0.99 mg/dL (0.70-1.30); SODIUM 136 mmol/L (136-145); TOTAL PROTEIN 5.5 g/dL (6.4-8.2); eGFR NON BLACK RACES > 60 (>60)
[2020-01-17 07:32] LABS: SERUM ACETONE MODERATE (NEGATIVE)
[2020-01-17] MEDS ORDERED: K-DUR TAB 20 MEQ PO PRN (07:44)
[2020-01-17] MEDS ORDERED: K-RIDER 10 MEQ/NS 100 ML 10 MEQ/100 ML BAG IV PRN (07:44)
[2020-01-17] MEDS ORDERED: POTASSIUM CHL 40 MEQ/NS 0.45% 500 ML IV PRN (07:44)
[2020-01-17] MEDS ORDERED: POTASSIUM CHLORIDE LIQ 20 MEQ UDC PO PRN (07:44)
[2020-01-17] MEDS ORDERED: KLOR-CON PO PRN (07:44)
[2020-01-17] MEDS ORDERED: POTASSIUM CHL 60 MEQ/NS 0.45% 500 ML IV PRN (07:44)
[2020-01-17] MEDS ORDERED: MICRO K EXTEN CAP 10 MEQ PO PRN (07:44)
[2020-01-17] MEDS ORDERED: DEMEROL INJ IVP PRN (08:03)
[2020-01-17] MEDS ORDERED: K-DUR TAB 20 MEQ PO ONE (08:23)
[2020-01-17] MEDS ORDERED: DEMEROL INJ ONE (08:24)
[2020-01-17] MEDS ORDERED: MAGNESIUM SULFATE 1 GRAM/100 mL PREMIX 1 G/100 ML BAG IV ONE (08:24)
[2020-01-17] MEDS ORDERED: PROTONIX TAB 40 MG PO ONE (08:24)
[2020-01-17] MEDS ORDERED: HumuLIN R ONE (08:25)
[2020-01-17] MEDS ORDERED: LANTUS SC ONE (08:25)
--- NOTE | 2020-01-17 08:25 | DR.H&P ---
H&P History & Physical for Day of: H&P Date: 01/16/20 Chief Complaint Chief Complaint: weakness, nausea Allergies Allergies Allergy/AdvReac Type Severity Reaction Status Date / Time No Known Drug Allergies Allergy Verified 01/02/20 15:54 History of Present Illness History of Present Illness: Mr. Sanchez is a 49y/o male with a hx of uncontrolled diabetes, gastritis and medical non-compliance with a hx of recurrent admissions for DKA. He presented with weakness and lethargy. Patient was very drowsy during my examination. He does not recall what happened in the past few days. He is not sure when he took his last insulin or when he ate last. He lives alone and manages his medications. He missed his clinic follow-ups due to not having a ride. ED work-up Labs: ABG: ph 6.83 pCO2: 9 pO2: 148 HCO3<3 WBC: 39.9 Na: 154 corrected K: 5.8 BUN/Cr: 24/2.2 Blood glucose: 910 Moderate acetone CXR (-) Patient was started on IV fluids, received 15 units of regular insulin and then started on DKA protocol with insulin drip. He also got 2 amps of HCO3. Plan: continue DKA protocol with insulin drip, BMP and ABG q4H, FS Q1H, check mag. Increase IVF to 200cc/hr. Hold Lisinopril Past Medical History Past Medical History: Diabetes and GERD Additional Medical History: Opiate abuse, Diabetic Neuropathy Past Surgical History Surgical History: Cholecystectomy and Ortho Surgery Family History Family Medical History: Diabetes Mellitus Social History Does patient currently use any type of tobacco product: Yes Have you used tobacco products in the last 12 months: Yes Type of Tobacco Use: Cigarettes How many years tobacco product used: 20 Alcohol Use: DAILY Drug Use: Marijuana Medications Home Medications: No Known Drug Allergies Allergy (Verified 01/02/20 15:54) CONTINUE taking the following medications baclofen 10 mg PO TID 01/16/20 [History] famotidine 40 mg PO HS 01/16/20 [History] insulin detemir U-100 [Levemir FlexTouch U-100 Insuln] unit SUBCUT 01/16/20 [History] insulin detemir U-100 [Levemir U-100 Insulin] 20 unit SUBCUT DAILY 01/16/20 [History] insulin detemir U-100 [Levemir U-100 Insulin] 25 unit SUBCUT HS 01/16/20 [History] lisinopril 5 mg PO DAILY 01/16/20 [History] sucralfate 1 g PO TID 01/16/20 [History] Labs Result Diagrams: 01/17/20 05:47 01/17/20 05:47 Labs: Laboratory WBC 20.5 X10^3/uL (3.6-10.0) H D 01/17/20 05:47 RBC 4.37 X10^6/uL (4.7-6.0) L 01/17/20 05:47 Hgb 13.3 g/dL (13.5-18.0) L 01/17/20 05:47 Hct 38.5 % (42.0-54.0) L 01/17/20 05:47 MCV 88.0 fL (80.0-100.0) 01/17/20 05:47 MCH 30.5 pg (27.0-34.0) 01/17/20 05:47 MCHC 34.7 g/dL (33.0-35.0) 01/17/20 05:47 RDW 13.2 % (11.6-16.5) 01/17/20 05:47 Plt Count 144 X10^3/uL (150.0-450.0) L 01/17/20 05:47 Plt Count Comment Adequate (ADEQUATE) 01/16/20 11:05 MPV 7.8 fL (7.4-11.0) 01/17/20 05:47 Neut % (Auto) 74.6 % (42.0-75.0) 01/17/20 05:47 Lymph % (Auto) 18.4 % (21.0-51.0) L 01/17/20 05:47 [place] % (Auto) 6.3 % (0.0-13.0) 01/17/20 05:47 Eos % (Auto) 0.2 % (0.9-2.9) L 01/17/20 05:47 Baso % (Auto) 0.5 % (0.2-1.0) 01/17/20 05:47 Neut # (Auto) 15.3 x10^3/uL (2.2-4.8) H 01/17/20 05:47 Lymph # (Auto) 3.8 X10^3/uL (1.3-2.9) H 01/17/20 05:47 [place] # (Auto) 1.3 x10^3/uL (0.3-0.8) H 01/17/20 05:47 Eos # (Auto) 0.0 x10^3/uL (0.0-0.2) 01/17/20 05:47 Baso # (Auto) 0.1 X10^3/uL (0.0-0.1) 01/17/20 05:47 Absolute Nucleated RBC 0.1 /100WBC 01/17/20 05:47 Total Counted 100 01/16/20 11:05 Neutrophils % (Manual) 69 % (39-76) 01/16/20 11:05 Band Neutrophils % 10 % (0-10) 01/16/20 11:05 Lymphocytes % (Manual) 14 % (13-43) 01/16/20 11:05 Monocytes % (Manual) 5 % (4-9) 01/16/20 11:05 Eosinophils % (Manual) 2 % (0-6) 01/16/20 11:05 Plt Morphology Comment Normal (NORMAL) 01/16/20 11:05 RBC Morphology Normal (NORMAL) 01/16/20 11:05 Sample Site Rr 01/17/20 04:00 ABG pH 7.400 (7.35-7.45) 01/17/20 04:00 ABG pCO2 33.0 mmHg (35.0-45.0) L 01/17/20 04:00 ABG pO2 88.0 mmHg (80.0-100.0) 01/17/20 04:00 ABG HCO3 20.4 mmol/L (22-26) L 01/17/20 04:00 ABG O2 Saturation 97.0 % (90-100) 01/17/20 04:00 ABG Base Excess -3.6 mmol/L (-2.0-2.0) L 01/17/20 04:00 Vince Test Pos 01/17/20 04:00 A-a Gradient 20.0 mmHg 01/17/20 04:00 FiO2 21.0 01/17/20 04:00 Blood Gas Comments Greg well sw 01/17/20 04:00 Sodium 136 mmol/L (136-145) 01/17/20 05:47 Corrected Sodium TNP 01/17/20 05:47 Potassium 3.3 mmol/L (3.5-5.1) L 01/17/20 05:47 Chloride 103 mmol/L (98-107) 01/17/20 05:47 Carbon Dioxide 20.6 mmol/L (21-32) L 01/17/20 05:47 BUN 13 mg/dL (7-18) 01/17/20 05:47 Creatinine 0.99 mg/dL (0.70-1.30) 01/17/20 05:47 Est GFR (MDRD) Af Amer > 60 (>60) 01/17/20 05:47 Est GFR (MDRD) Non-Af > 60 (>60) 01/17/20 05:47 Glucose 96 mg/dL (65-99) 01/17/20 05:47 POC Glucose (mg/dL) 190 mg/dL (65-99) H 01/17/20 07:54 Calcium 8.1 mg/dL (8.5-10.1) L 01/17/20 05:47 Corrected Calcium 9.1 mg/dL (8.5-10.1) 01/17/20 05:47 Magnesium 1.7 mg/dL (1.7-2.9) 01/17/20 05:47 Total Bilirubin 0.40 mg/dL (0.2-1.0) 01/17/20 05:47 AST 24 Units/L (15-37) 01/17/20 05:47 ALT 22 Units/L (12-78) 01/17/20 05:47 Alkaline Phosphatase 82 Units/L (46-116) 01/17/20 05:47 Creatine Kinase 79 Units/L (39-308) 01/16/20 11:05 Creatine Kinase Cancelled 01/16/20 11:05 CK-MB (CK-2) < 1.0 ng/mL (0-4.0) 01/16/20 11:05 CK-MB (CK-2) Cancelled 01/16/20 11:05 CK/CKMB % Calc 1.3 % (<4) 01/16/20 11:05 CK/CKMB % Calc Cancelled 01/16/20 11:05 Troponin I < 0.02 ng/mL (0-1.5) 01/16/20 11:05 Troponin I Cancelled 01/16/20 11:05 Total Protein 5.5 g/dL (6.4-8.2) L 01/17/20 05:47 Albumin 2.7 g/dL (3.4-5.0) L 01/17/20 05:47 Globulin 2.8 g/dL (2.5-4.5) 01/17/20 05:47 Albumin/Globulin Ratio 1.0 Ratio (1.1-2.1) L 01/17/20 05:47 Lipase 1060 Units/L (73-393) H 01/17/20 05:47 Specimen Type Clean catch urine 01/17/20 00:19 Urine Color Yellow (YELLOW) 01/17/20 00:19 Urine Appearance Clear (CLEAR) 01/17/20 00:19 Urine pH 5.0 (5.0 - 8.0) 01/17/20 00:19 Ur Specific [place] 1.015 (1.000-1.030) 01/17/20 00:19 Urine Protein 1+ (NEGATIVE) 01/17/20 00:19 Urine Glucose (UA) 3+ (NEGATIVE) 01/17/20 00:19 Urine Ketones 3+ (NEGATIVE) 01/17/20 00:19 Urine Occult Blood Negative (NEGATIVE) 01/17/20 00: Urine Nitrite Negative (NEGATIVE) 01/17/20 00:19 Urine Bilirubin Negative (NEGATIVE) 01/17/20 00:19 Urine Urobilinogen Normal (NORMAL) 01/17/20 00:19 Ur Leukocyte Esterase Negative (NEGATIVE) 01/17/20 00:19 Urine RBC None seen /HPF (0-3) 01/17/20 00:19 Urine WBC 0-2 /HPF (0-5) 01/17/20 00:19 Ur Squamous Epith Cells Negative /HPF (NEGATIVE) 01/17/20 00:19 Urine Bacteria Trace /HPF (NEGATIVE) 01/17/20 00:19 Ur Culture Indicated? No/not indicated 01/17/20 00:19 Acetone, Semi-Quant Moderate (NEGATIVE) H 01/17/20 05:47 Review of Systems Constitutional: Weakness and Malaise Eyes: No Symptoms Reported ENT: No Symptoms Reported Respiratory: No Symptoms Reported Cardiovascular: No Symptoms Reported Gastrointestinal: Nausea and Abdominal Pain Genitourinary: No Symptoms Reported Musculoskeletal: Back Pain Skin: No Symptoms Reported Physical Exam Vital Signs: Temperature 97.9 F Pulse Rate [Brachial] 123 Pulse Rate 121 Respiratory Rate 18 Blood Pressure [Left Arm] 124/75 Blood Pressure [Right Arm] 124/75 Blood Pressure [Right Arm] 113/72 Blood Pressure 137/57 O2 Sat by Pulse Oximetry 95 Oriented: Unable to test Eyes: Normal Nose: Normal Throat: Normal Respiratory: Clear Throughout Cardiovascular: Tachycardia Auscultation: Bowel Sounds: Normal Tenderness: Diffuse and Mild Skin: Normal Musculoskeletal: Normal Mood Description: Appropriate Affect: Normal Speech Pattern: Delayed Assessment/Plan (1) DKA (diabetic ketoacidoses): Qualifiers: Diabetes mellitus complication detail: without coma Diabetes mellitus type: type 1 Qualified Code(s): E10.10 - Type 1 diabetes mellitus with ketoacidosis without coma Status: Acute (2) Hyperkalemia: Status: Acute (3) Acute renal failure: Qualifiers: Acute renal failure type: unspecified Qualified Code(s): N17.9 - Acute kidney failure, unspecified Status: Acute (4) Dehydration: Status: Acute (5) Uncontrolled diabetes mellitus: Qualifiers: Diabetes mellitus type: type 1 Glycemic state: with hyperglycemia Qualified Code(s): E10.65 - Type 1 diabetes mellitus with hyperglycemia Status: Acute (6) Non compliance w medication regimen: Status: Acute Review H&P Reviewed: Yes Patient was examined?: Yes
[2020-01-17] MEDS: LANTUS SC SCH (08:39)
[2020-01-17] MEDS: PROTONIX TAB 40 MG PO SCH ×2 (08:40→21:47)
[2020-01-17] MEDS: HumuLIN R SC PRN ×2 (08:41→13:06)
[2020-01-17] MEDS: MAGNESIUM SULFATE 1 GRAM/100 mL PREMIX 1 GM/100 ML BAG IV PRN ×2 (08:42→13:39)
--- NOTE | 2020-01-17 08:46 | PCM.PROG ---
Progress Note Progress Note for Day of Date of Exam: 01/17/20 Subjective Subjective: Patient seen at bedside, no overnight events. He is more alert and oriented today. He is complaining of abdominal pain. He is still not able to recall much about what happened in the last few days and if he took his insulin. He states he had insulin at home and did not run out of it. He did eat a little bit last night. He reports some nausea, no vomiting. Denies cough or SOB. Denies fever or chills. Denies diarrhea. Insulin drip was turned off 2 hrs ago as per the protocol. Patient's last FS was 190. Labs: WBC trending down to 20 AB.4/33// BMP: K-3.3 Cr: 0.99 BUN: 13 C02: 20.6 Lipase > 1000 Plan: resume lantus 15 units, add SSI, replace K and Mag as per protocol, add protonix BID and carafate. Add zofran prn. Continue IVF at 200cc/hr. Add Demrol for pain control. Will check anemia panel. CTAP to evaluate further, rule out any infection due to elevated WBC and severe abdominal pain. Keep NPO for now. Past Medical Family Social History Past Med/Fam/Surg Hx: No changes since H&P Allergies: Allergies No Known Drug Allergies Allergy (Verified 01/02/20 15:54) Review of Systems ROS: No change since H&P Vital Signs and I&O's Vital Signs: Temperature 97.9 F Pulse Rate [Brachial] 123 Pulse Rate 121 Respiratory Rate 18 Blood Pressure [Left Arm] 124/75 Blood Pressure [Right Arm] 124/75 Blood Pressure [Right Arm] 113/72 Blood Pressure 137/57 O2 Sat by Pulse Oximetry 95 Intake and Output: Intake & Output 01/14/20 01/15/20 01/16/20 01/17/20 23:59 23:59 23:59 23:59 Intake Total 1245 / 1245 Output Total 2300 / 2300 500 / 500 Balance -1055 / -1055 -491 / -491 Physical Exam Oriented: Normal Eyes: Normal Nose: Normal Throat: Normal Respiratory: Normal Cardiovascular: Tachycardia Auscultation: Bowel Sounds: Normal Tenderness: Diffuse, Epigastric and Moderate Skin: Normal Musculoskeletal: Normal Psychiatric: Normal Mood Description: Calm and Appropriate Affect: Normal Speech Pattern: Clear and Appropriate Laboratory and Diagnostics Result Diagrams: 01/17/20 05:47 01/17/20 05:47 Labs: Laboratory WBC 20.5 X10^3/uL (3.6-10.0) H D 01/17/20 05:47 RBC 4.37 X10^6/uL (4.7-6.0) L 01/17/20 05:47 Hgb 13.3 g/dL (13.5-18.0) L 01/17/20 05:47 Hct 38.5 % (42.0-54.0) L 01/17/20 05:47 MCV 88.0 fL (80.0-100.0) 01/17/20 05:47 MCH 30.5 pg (27.0-34.0) 01/17/20 05:47 MCHC 34.7 g/dL (33.0-35.0) 01/17/20 05:47 RDW 13.2 % (11.6-16.5) 01/17/20 05:47 Plt Count 144 X10^3/uL (150.0-450.0) L 01/17/20 05:47 Plt Count Comment Adequate (ADEQUATE) 01/16/20 11:05 MPV 7.8 fL (7.4-11.0) 01/17/20 05:47 Neut % (Auto) 74.6 % (42.0-75.0) 01/17/20 05:47 Lymph % (Auto) 18.4 % (21.0-51.0) L 01/17/20 05:47 [place] % (Auto) 6.3 % (0.0-13.0) 01/17/20 05:47 Eos % (Auto) 0.2 % (0.9-2.9) L 01/17/20 05:47 Baso % (Auto) 0.5 % (0.2-1.0) 01/17/20 05:47 Neut # (Auto) 15.3 x10^3/uL (2.2-4.8) H 01/17/20 05:47 Lymph # (Auto) 3.8 X10^3/uL (1.3-2.9) H 01/17/20 05:47 [place] # (Auto) 1.3 x10^3/uL (0.3-0.8) H 01/17/20 05:47 Eos # (Auto) 0.0 x10^3/uL (0.0-0.2) 01/17/20 05:47 Baso # (Auto) 0.1 X10^3/uL (0.0-0.1) 01/17/20 05:47 Absolute Nucleated RBC 0.1 /100WBC 01/17/20 05:47 Total Counted 100 01/16/20 11:05 Neutrophils % (Manual) 69 % (39-76) 01/16/20 11:05 Band Neutrophils % 10 % (0-10) 01/16/20 11:05 Lymphocytes % (Manual) 14 % (13-43) 01/16/20 11:05 Monocytes % (Manual) 5 % (4-9) 01/16/20 11:05 Eosinophils % (Manual) 2 % (0-6) 01/16/20 11:05 Plt Morphology Comment Normal (NORMAL) 01/16/20 11:05 RBC Morphology Normal (NORMAL) 01/16/20 11:05 Sample Site Rr 01/17/20 04:00 ABG pH 7.400 (7.35-7.45) 01/17/20 04:00 ABG pCO2 33.0 mmHg (35.0-45.0) L 01/17/20 04:00 ABG pO2 88.0 mmHg (80.0-100.0) 01/17/20 04:00 ABG HCO3 20.4 mmol/L (22-26) L 01/17/20 04:00 ABG O2 Saturation 97.0 % (90-100) 01/17/20 04:00 ABG Base Excess -3.6 mmol/L (-2.0-2.0) L 01/17/20 04:00 Vince Test Pos 01/17/20 04:00 A-a Gradient 20.0 mmHg 01/17/20 04:00 FiO2 21.0 01/17/20 04:00 Blood Gas Comments Greg well sw 01/17/20 04:00 Sodium 136 mmol/L (136-145) 01/17/20 05:47 Corrected Sodium TNP 01/17/20 05:47 Potassium 3.3 mmol/L (3.5-5.1) L 01/17/20 05:47 Chloride 103 mmol/L (98-107) 01/17/20 05:47 Carbon Dioxide 20.6 mmol/L (21-32) L 01/17/20 05:47 BUN 13 mg/dL (7-18) 01/17/20 05:47 Creatinine 0.99 mg/dL (0.70-1.30) 01/17/20 05:47 Est GFR (MDRD) Af Amer > 60 (>60) 01/17/20 05:47 Est GFR (MDRD) Non-Af > 60 (>60) 01/17/20 05:47 Glucose 96 mg/dL (65-99) 01/17/20 05:47 POC Glucose (mg/dL) 190 mg/dL (65-99) H 01/17/20 07:54 Calcium 8.1 mg/dL (8.5-10.1) L 01/17/20 05:47 Corrected Calcium 9.1 mg/dL (8.5-10.1) 01/17/20 05:47 Magnesium 1.7 mg/dL (1.7-2.9) 01/17/20 05:47 Total Bilirubin 0.40 mg/dL (0.2-1.0) 01/17/20 05:47 AST 24 Units/L (15-37) 01/17/20 05:47 ALT 22 Units/L (12-78) 01/17/20 05:47 Alkaline Phosphatase 82 Units/L (46-116) 01/17/20 05:47 Creatine Kinase 79 Units/L (39-308) 01/16/20 11:05 Creatine Kinase Cancelled 01/16/20 11:05 CK-MB (CK-2) < 1.0 ng/mL (0-4.0) 01/16/20 11:05 CK-MB (CK-2) Cancelled 01/16/20 11:05 CK/CKMB % Calc 1.3 % (<4) 01/16/20 11:05 CK/CKMB % Calc Cancelled 01/16/20 11:05 Troponin I < 0.02 ng/mL (0-1.5) 01/16/20 11:05 Troponin I Cancelled 01/16/20 11:05 Total Protein 5.5 g/dL (6.4-8.2) L 01/17/20 05:47 Albumin 2.7 g/dL (3.4-5.0) L 01/17/20 05:47 Globulin 2.8 g/dL (2.5-4.5) 01/17/20 05:47 Albumin/Globulin Ratio 1.0 Ratio (1.1-2.1) L 01/17/20 05:47 Lipase 1060 Units/L (73-393) H 01/17/20 05:47 Specimen Type Clean catch urine 01/17/20 00:19 Urine Color Yellow (YELLOW) 01/17/20 00:19 Urine Appearance Clear (CLEAR) 01/17/20 00:19 Urine pH 5.0 (5.0 - 8.0) 01/17/20 00:19 Ur Specific [place] 1.015 (1.000-1.030) 01/17/20 00:19 Urine Protein 1+ (NEGATIVE) 01/17/20 00:19 Urine Glucose (UA) 3+ (NEGATIVE) 01/17/20 00:19 Urine Ketones 3+ (NEGATIVE) 01/17/20 00:19 Urine Occult Blood Negative (NEGATIVE) 01/17/20 00:19 Urine Nitrite Negative (NEGATIVE) 01/17/20 00:19 Urine Bilirubin Negative (NEGATIVE) 01/17/20 00:19 Urine Urobilinogen Normal (NORMAL) 01/17/20 00:19 Ur Leukocyte Esterase Negative (NEGATIVE) 01/17/20 00:19 Urine RBC None seen /HPF (0-3) 01/17/20 00:19 Urine WBC 0-2 /HPF (0-5) 01/17/20 00:19 Ur Squamous Epith Cells Negative /HPF (NEGATIVE) 01/17/20 00:19 Urine Bacteria Trace /HPF (NEGATIVE) 01/17/20 00:19 Ur Culture Indicated? No/not indicated 01/17/20 00:19 Acetone, Semi-Quant Moderate (NEGATIVE) H 01/17/20 05:47 Plan (1) DKA (diabetic ketoacidoses): Status: Acute Qualifiers: Diabetes mellitus complication detail: without coma Diabetes mellitus type: type 1 Qualified Code(s): E10.10 - Type 1 diabetes mellitus with ketoacidosis without coma (2) Hyperkalemia: Status: Acute (3) Acute renal failure: Status: Acute Qualifiers: Acute renal failure type: unspecified Qualified Code(s): N17.9 - Acute kidney failure, unspecified (4) Dehydration: Status: Acute (5) Uncontrolled diabetes mellitus: Status: Acute Qualifiers: Diabetes mellitus type: type 1 Glycemic state: with hyperglycemia Qualified Code(s): E10.65 - Type 1 diabetes mellitus with hyperglycemia (6) Non compliance w medication regimen: Status: Acute
[2020-01-17] MEDS ORDERED: ZESTRIL TAB 5 MG PO SCH (09:00)
[2020-01-17] MEDS ORDERED: PROTONIX TAB 40 MG PO SCH (09:00)
--- NOTE | 2020-01-17 12:52 | CT ---
HISTORYSEVERE DIFFUSE ABDOMINAL PAIN ELEVATED LIPASESTUDYABDOMEN/PELVIS WITH CONCOMPARISONCT abdomen and pelvis from 01/02/2020TECHNIQUEMultiple axial images of the abdomen and pelvis were obtained from the lung bases to the pubic symphysis after the administration of IV contrast. Dose reduction techniques including Automated Exposure Control (AEC) and adjustment of mA and kV were utilized.FINDINGSMild scattered subsegmental atelectasis. Status post cholecystectomy. Focal fatty infiltration in the liver adjacent to the falciform ligament. Mild intra and extrahepatic post cholecystectomy ductal ectasia. There is peripancreatic mesenteric edema. Mild ascites is present. The spleen appears normal. No pancreatic duct dilatation are areas of hypo enhancement. The kidneys appear benign. Urinary bladder appears normal. Colonic diverticulosis without evidence of diverticulitis. Moderate amount of stool in the colon. Appendix appears normal. No evidence of bowel obstruction. Normal caliber non atherosclerotic abdominal aorta. No free air or intra-abdominal collection. Mild fat stranding in the anterior body wall may be sequela of injection. No acute osseous abnormality.IMPRESSIONFindings consistent with acute interstitial pancreatitis. Peripancreatic edema with mild ascites.Post cholecystectomy. Moderate colonic stool burden.Electronically signed by: Darrius Merino (Jan 17, 2020 12:52:17)
[2020-01-17] MEDS: CARAFATE PO SCH ×3 (13:00→21:47)
[2020-01-17] MEDS: ZOFRAN INJ 4 MG VIAL IVP PRN ×2 (13:01→21:48)
[2020-01-17] MEDS: DEMEROL INJ IVP PRN ×2 (16:55→23:38)
[2020-01-17] MEDS ORDERED: MILK OF MAGNESIA PO PRN (20:14)
[2020-01-17] MEDS: SNACK - Diabetic Appropriate PO SCH (21:43)
[2020-01-17] MEDS: COLACE CAP 100 MG PO SCH (21:47)
[2020-01-18] MEDS: NS 1000 ML 1,000 ML IV SCH ×4 (01:17→21:01)
[2020-01-18] MEDS: CARAFATE PO SCH ×4 (05:39→21:02)
[2020-01-18 06:27] LABS: BASOPHILS # (AUTO) 0.1 X10^3/uL (0.0-0.1); BASOPHILS % (AUTO) 1.3 % (0.2-1.0); EOSINOPHILS # (AUTO) 0.2 x10^3/uL (0.0-0.2); EOSINOPHILS % (AUTO) 1.5 % (0.9-2.9); HEMATOCRIT 32.8 % (42.0-54.0); HEMOGLOBIN 11.3 g/dL (13.5-18.0); LYMPHOCYTES % (AUTO) 26.5 % (21.0-51.0); MEAN CORPUSCULAR HEMOGLOBIN 30.6 pg (27.0-34.0); MEAN CORPUSCULAR HGB CONC 34.3 g/dL (33.0-35.0); MEAN CORPUSCULAR VOLUME 89.1 fL (80.0-100.0); MEAN PLATELET VOLUME 7.8 fL (7.4-11.0); MONOCYTES # (AUTO) 0.8 x10^3/uL (0.3-0.8); MONOCYTES % (AUTO) 7.3 % (0.0-13.0); NEUTROPHILS # (AUTO) 7.2 x10^3/uL (2.2-4.8); NEUTROPHILS % (AUTO) 63.4 % (42.0-75.0); PLATELET COUNT 296 X10^3/uL (150.0-450.0); RED BLOOD COUNT 3.68 X10^6/uL (4.7-6.0); RED CELL DISTRIBUTION WIDTH 13.6 % (11.6-16.5); WHITE BLOOD COUNT 11.4 X10^3/uL (3.6-10.0)
[2020-01-18 06:47] LABS: ALANINE AMINOTRANSFERASE 15 Units/L (12-78); ALBUMIN 2.1 g/dL (3.4-5.0); ALKALINE PHOSPHATASE 69 Units/L (46-116); ASPARTATE AMINO TRANSFERASE 18 Units/L (15-37); BLOOD UREA NITROGEN 6 mg/dL (7-18); CALCIUM 7.7 mg/dL (8.5-10.1); CARBON DIOXIDE 26.2 mmol/L (21-32); CHLORIDE 107 mmol/L (98-107); COR CA(FOR HYPOALB) 9.2 mg/dL (8.5-10.1); CREATININE 0.76 mg/dL (0.70-1.30); MAGNESIUM 1.9 mg/dL (1.7-2.9); SODIUM 139 mmol/L (136-145); TOTAL PROTEIN 4.7 g/dL (6.4-8.2); eGFR NON BLACK RACES > 60 (>60)
[2020-01-18] MEDS: DEMEROL INJ IVP PRN ×2 (08:00→14:55)
--- NOTE | 2020-01-18 08:35 | PCM.PROG ---
Progress Note Progress Note for Day of Date of Exam: 01/18/20 Subjective Subjective: Patient seen at bedside, no overnight events. He feels a little better, abdominal pain has improved slightly. He reports nausea, no vomiting or diarrhea. He had a BM last night. Denies fever or chills. CTAP yesterday did show moderate stool burden and interstitial pancreatitis with edema. He was kept NPO with IVF and pain control. Labs: WBC trending down 11.3 BMP: K-3.7 Cr: 0.76 BUN: 6 C02: 26 Plan: start clear liquid diet this AM, advance at lunch if tolerated. Decrease IVF to 100cc/hr. Continue pain control. Continue protonix, carafate. Continue Lantus and SSI. Monitor AM labs. Past Medical Family Social History Past Med/Fam/Surg Hx: No changes since H&P Allergies: Allergies No Known Drug Allergies Allergy (Verified 01/02/20 15:54) Review of Systems ROS: No change since H&P Vital Signs and I&O's Vital Signs: Temperature 98.1 F Pulse Rate [Brachial] 89 Pulse Rate 121 Respiratory Rate 18 Blood Pressure [Left Arm] 113/66 Blood Pressure [Right Arm] 124/75 Blood Pressure [Right Arm] 113/72 Blood Pressure 137/57 O2 Sat by Pulse Oximetry 98 Intake and Output: Intake & Output 01/15/20 01/16/20 01/17/20 01/18/20 23:59 23:59 23:59 23:59 Intake Total 1245 / 1245 2409 / 2409 1200 / 1200 Output Total 2300 / 2300 3950 / 3950 375 / 375 Balance -1055 / -1055 -1541 / -1541 825 / 825 Physical Exam Oriented: Normal Eyes: Normal Nose: Normal Throat: Normal Respiratory: Normal Cardiovascular: Tachycardia and Edema (b/l hands swollen ) Auscultation: Bowel Sounds: Normal Tenderness: Epigastric, Periumbilical and Mild Skin: Normal Musculoskeletal: Normal Psychiatric: Normal Mood Description: Calm and Appropriate Affect: Normal Speech Pattern: Clear and Appropriate Laboratory and Diagnostics Result Diagrams: 01/18/20 05:20 01/18/20 05:20 Labs: Laboratory WBC 11.4 X10^3/uL (3.6-10.0) H D 01/18/20 05:20 RBC 3.68 X10^6/uL (4.7-6.0) L 01/18/20 05:20 Hgb 11.3 g/dL (13.5-18.0) L D 01/18/20 05:20 Hct 32.8 % (42.0-54.0) L 01/18/20 05:20 MCV 89.1 fL (80.0-100.0) 01/18/20 05:20 MCH 30.6 pg (27.0-34.0) 01/18/20 05:20 MCHC 34.3 g/dL (33.0-35.0) 01/18/20 05:20 RDW 13.6 % (11.6-16.5) 01/18/20 05:20 Plt Count 296 X10^3/uL (150.0-450.0) 01/18/20 05:20 Plt Count Comment Adequate (ADEQUATE) 01/16/20 11:05 MPV 7.8 fL (7.4-11.0) 01/18/20 05:20 Neut % (Auto) 63.4 % (42.0-75.0) 01/18/20 05:20 Lymph % (Auto) 26.5 % (21.0-51.0) 01/18/20 05:20 [place] % (Auto) 7.3 % (0.0-13.0) 01/18/20 05:20 Eos % (Auto) 1.5 % (0.9-2.9) 01/18/20 05:20 Baso % (Auto) 1.3 % (0.2-1.0) H 01/18/20 05:20 Neut # (Auto) 7.2 x10^3/uL (2.2-4.8) H 01/18/20 05:20 Lymph # (Auto) 3.0 X10^3/uL (1.3-2.9) H 01/18/20 05:20 [place] # (Auto) 0.8 x10^3/uL (0.3-0.8) 01/18/20 05:20 Eos # (Auto) 0.2 x10^3/uL (0.0-0.2) 01/18/20 05:20 Baso # (Auto) 0.1 X10^3/uL (0.0-0.1) 01/18/20 05:20 Absolute Nucleated RBC 0.0 /100WBC 01/18/20 05:20 Total Counted 100 01/16/20 11:05 Neutrophils % (Manual) 69 % (39-76) 01/16/20 11:05 Band Neutrophils % 10 % (0-10) 01/16/20 11:05 Lymphocytes % (Manual) 14 % (13-43) 01/16/20 11:05 Monocytes % (Manual) 5 % (4-9) 01/16/20 11:05 Eosinophils % (Manual) 2 % (0-6) 01/16/20 11:05 Plt Morphology Comment Normal (NORMAL) 01/16/20 11:05 RBC Morphology Normal (NORMAL) 01/16/20 11:05 Sample Site Rr 01/17/20 04:00 ABG pH 7.400 (7.35-7.45) 01/17/20 04:00 ABG pCO2 33.0 mmHg (35.0-45.0) L 01/17/20 04:00 ABG pO2 88.0 mmHg (80.0-100.0) 01/17/20 04:00 ABG HCO3 20.4 mmol/L (22-26) L 01/17/20 04:00 ABG O2 Saturation 97.0 % (90-100) 01/17/20 04:00 ABG Base Excess -3.6 mmol/L (-2.0-2.0) L 01/17/20 04:00 Vince Test Pos 01/17/20 04:00 A-a Gradient 20.0 mmHg 01/17/20 04:00 FiO2 21.0 01/17/20 04:00 Blood Gas Comments Greg well sw 01/17/20 04:00 Sodium 139 mmol/L (136-145) 01/18/20 05:20 Corrected Sodium TNP 01/18/20 05:20 Potassium 3.7 mmol/L (3.5-5.1) 01/18/20 05:20 Chloride 107 mmol/L (98-107) 01/18/20 05:20 Carbon Dioxide 26.2 mmol/L (21-32) 01/18/20 05:20 BUN 6 mg/dL (7-18) L 01/18/20 05:20 Creatinine 0.76 mg/dL (0.70-1.30) 01/18/20 05:20 Est GFR (MDRD) Af Amer > 60 (>60) 01/18/20 05:20 Est GFR (MDRD) Non-Af > 60 (>60) 01/18/20 05:20 Glucose 108 mg/dL (65-99) H 01/18/20 05:20 POC Glucose (mg/dL) 126 mg/dL (65-99) H 01/18/20 07:41 Calcium 7.7 mg/dL (8.5-10.1) L 01/18/20 05:20 Corrected Calcium 9.2 mg/dL (8.5-10.1) 01/18/20 05:20 Magnesium 1.9 mg/dL (1.7-2.9) 01/18/20 05:20 Iron 27 ug/dL (50-175) L 01/17/20 05:47 Transferrin 195 mg/dL (202-364) L 01/17/20 05:47 Ferritin 188 ng/mL (26-388) 01/17/20 05:47 Total Bilirubin 0.40 mg/dL (0.2-1.0) 01/18/20 05:20 AST 18 Units/L (15-37) 01/18/20 05:20 ALT 15 Units/L (12-78) 01/18/20 05:20 Alkaline Phosphatase 69 Units/L (46-116) 01/18/20 05:20 Creatine Kinase 79 Units/L (39-308) 01/16/20 11:05 Creatine Kinase Cancelled 01/16/20 11:05 CK-MB (CK-2) < 1.0 ng/mL (0-4.0) 01/16/20 11:05 CK-MB (CK-2) Cancelled 01/16/20 11:05 CK/CKMB % Calc 1.3 % (<4) 01/16/20 11:05 CK/CKMB % Calc Cancelled 01/16/20 11:05 Troponin I < 0.02 ng/mL (0-1.5) 01/16/20 11:05 Troponin I Cancelled 01/16/20 11:05 Total Protein 4.7 g/dL (6.4-8.2) L 01/18/20 05:20 Albumin 2.1 g/dL (3.4-5.0) L 01/18/20 05:20 Globulin 2.6 g/dL (2.5-4.5) 01/18/20 05:20 Albumin/Globulin Ratio 0.8 Ratio (1.1-2.1) L 01/18/20 05:20 Lipase 1060 Units/L (73-393) H 01/17/20 05:47 Vitamin B12 472 pg/mL (193-986) 01/17/20 05:47 Folate 15.9 ng/mL (>8.6) 01/17/20 05:47 Specimen Type Clean catch urine 01/17/20 00:19 Urine Color Yellow (YELLOW) 01/17/20 00:19 Urine Appearance Clear (CLEAR) 01/17/20 00:19 Urine pH 5.0 (5.0 - 8.0) 01/17/20 00:19 Ur Specific [place] 1.015 (1.000-1.030) 01/17/20 00:19 Urine Protein 1+ (NEGATIVE) 01/17/20 00:19 Urine Glucose (UA) 3+ (NEGATIVE) 01/17/20 00:19 Urine Ketones 3+ (NEGATIVE) 01/17/20 00:19 Urine Occult Blood Negative (NEGATIVE) 01/17/20 00:19 Urine Nitrite Negative (NEGATIVE) 01/17/20 00:19 Urine Bilirubin Negative (NEGATIVE) 01/17/20 00:19 Urine Urobilinogen Normal (NORMAL) 01/17/20 00:19 Ur Leukocyte Esterase Negative (NEGATIVE) 01/17/20 00:19 Urine RBC None seen /HPF (0-3) 01/17/20 00:19 Urine WBC 0-2 /HPF (0-5) 01/17/20 00:19 Ur Squamous Epith Cells Negative /HPF (NEGATIVE) 01/17/20 00:19 Urine Bacteria Trace /HPF (NEGATIVE) 01/17/20 00:19 Ur Culture Indicated? No/not indicated 01/17/20 00:19 Acetone, Semi-Quant Moderate (NEGATIVE) H 01/17/20 05:47 Plan (1) Interstitial pancreatitis: Status: Acute (2) DKA (diabetic ketoacidoses): Status: Acute Qualifiers: Diabetes mellitus complication detail: without coma Diabetes mellitus type: type 1 Qualified Code(s): E10.10 - Type 1 diabetes mellitus with ketoacidosis without coma (3) Hyperkalemia: Status: Acute (4) Acute renal failure: Status: Acute Qualifiers: Acute renal failure type: unspecified Qualified Code(s): N17.9 - Acute kidney failure, unspecified (5) Dehydration: Status: Acute (6) Uncontrolled diabetes mellitus: Status: Acute Qualifiers: Diabetes mellitus type: type 1 Glycemic state: with hyperglycemia Qualified Code(s): E10.65 - Type 1 diabetes mellitus with hyperglycemia (7) Non compliance w medication regimen: Status: Acute (8) Constipation: Status: Acute Qualifiers: Constipation type: unspecified constipation type Qualified Code(s): K59.00 - Constipation, unspecified
[2020-01-18] MEDS: LANTUS SC SCH (08:48)
[2020-01-18] MEDS: PROTONIX TAB 40 MG PO SCH ×2 (09:22→21:03)
[2020-01-18] MEDS: FERROUS GLUCONATE PO SCH ×2 (09:23→18:16)
[2020-01-18] MEDS: COLACE CAP 100 MG PO SCH ×2 (09:29→21:02)
[2020-01-18] MEDS: HumuLIN R SC PRN (14:55)
[2020-01-18] MEDS: ZOFRAN INJ 4 MG VIAL IVP PRN (14:55)
[2020-01-18] MEDS: MORPHINE SULFATE INJ 2 MG INJ IVP PRN ×2 (17:00→21:03)
[2020-01-18] MEDS ORDERED: MORPHINE SULFATE INJ 2 MG INJ ONE (17:01)
[2020-01-18] MEDS: SNACK - Diabetic Appropriate PO SCH (20:30)
[2020-01-18] MEDS ORDERED: LANTUS SC SCH (21:00)
[2020-01-19] MEDS: MORPHINE SULFATE INJ 2 MG INJ IVP PRN ×3 (01:01→09:35)
[2020-01-19] MEDS: NS 1000 ML 1,000 ML IV SCH ×2 (01:03→05:07)
[2020-01-19] MEDS: CARAFATE PO SCH (05:33)
[2020-01-19 08:27] LABS: BASOPHILS % (AUTO) 0.2 % (0.2-1.0); EOSINOPHILS # (AUTO) 0.1 x10^3/uL (0.0-0.2); EOSINOPHILS % (AUTO) 1.1 % (0.9-2.9); HEMOGLOBIN 10.4 g/dL (13.5-18.0); LYMPHOCYTES # (AUTO) 2.3 X10^3/uL (1.3-2.9); LYMPHOCYTES % (AUTO) 28.7 % (21.0-51.0); MEAN CORPUSCULAR HEMOGLOBIN 30.3 pg (27.0-34.0); MEAN CORPUSCULAR HGB CONC 33.7 g/dL (33.0-35.0); MONOCYTES # (AUTO) 0.6 x10^3/uL (0.3-0.8); MONOCYTES % (AUTO) 7.9 % (0.0-13.0); NEUTROPHILS % (AUTO) 62.1 % (42.0-75.0); PLATELET COUNT 254 X10^3/uL (150.0-450.0); RED BLOOD COUNT 3.44 X10^6/uL (4.7-6.0); RED CELL DISTRIBUTION WIDTH 13.1 % (11.6-16.5); WHITE BLOOD COUNT 8.1 X10^3/uL (3.6-10.0)
[2020-01-19 08:34] LABS: ALANINE AMINOTRANSFERASE 17 Units/L (12-78); ALBUMIN 2.1 g/dL (3.4-5.0); ALKALINE PHOSPHATASE 83 Units/L (46-116); ASPARTATE AMINO TRANSFERASE 21 Units/L (15-37); BLOOD UREA NITROGEN 4 mg/dL (7-18); CALCIUM 7.4 mg/dL (8.5-10.1); CARBON DIOXIDE 24.6 mmol/L (21-32); CHLORIDE 104 mmol/L (98-107); COR CA(FOR HYPOALB) 8.9 mg/dL (8.5-10.1); COR NA(FOR HYPERGLY) 139 mmol/L (136-145); CREATININE 0.62 mg/dL (0.70-1.30); SODIUM 137 mmol/L (136-145); eGFR NON BLACK RACES > 60 (>60)
[2020-01-19] MEDS: COLACE CAP 100 MG PO SCH (08:39)
[2020-01-19] MEDS: PROTONIX TAB 40 MG PO SCH (08:39)
[2020-01-19 09:26] VITALS: BP 121/79
--- NOTE | 2020-01-19 10:23 | W.DIS.FURT ---
Summary of Discharge Discharge Summary of Date Date of Exam: 01/19/20 Admission Date Date of Admission: 01/16/20 Admission Diagnosis Hospital Course: Mr. Sanchez is a 49y/o male with a hx of uncontrolled diabetes, gastritis and medical non-compliance with a hx of recurrent admissions for DKA. He presented with weakness and lethargy. He does not recall what happened in the past few days. He is not sure when he took his last insulin or when he ate last. He lives alone and manages his medications. He missed his clinic follow-ups due to not having a ride. Patient was in metabolic acidosis with DKA. He was started on DKA protocol with IVF fluids, insulin drip and electrolyte management. ABG and BMP were monitored closely. CXR was negative. Patient was also complaining of severe abdominal pain. CTAP was done which showed interstitial pancreatitis. He denies recent ETOH use and hx of cholecystectomy. Patient was initially kept NPO with pain control and IVF. He was started on clears and advanced as tolerated. Patient's blood sugars were better controlled. He was getting Lantus 15 units qHS and SSI. His renal function normalized along with all the electrolytes. He was stable for discharge. Patient was advised to keep his PCP appointments for managing his diabetes. Patient verbalized understanding. Vital Signs: Vital Signs (72 hours) 01/16/20 13:00 01/16/20 14:00 01/16/20 15:00 Temperature 97.6 F Pulse Rate [Brachial] 114 H 107 H 102 H Respiratory Rate 26 H 20 20 Blood Pressure [Left Arm] 108/73 101/63 101/58 O2 Sat by Pulse Oximetry 100 100 100 01/16/20 16:00 01/16/20 17:00 01/16/20 18:00 Temperature Pulse Rate [Brachial] 101 H 104 H 105 H Respiratory Rate 20 18 18 Blood Pressure [Left Arm] 103/61 104/54 129/73 O2 Sat by Pulse Oximetry 100 98 98 01/16/20 19:00 01/16/20 20:00 01/16/20 21:00 Temperature 98.4 F Pulse Rate [Brachial] 104 H 104 H 107 H Respiratory Rate 18 16 16 Blood Pressure [Left Arm] 126/79 137/85 124/76 O2 Sat by Pulse Oximetry 100 100 99 01/16/20 22:00 01/16/20 23:00 01/17/20 00:00 Temperature 99.1 F Pulse Rate [Brachial] 110 H 105 H 114 H Respiratory Rate 16 16 18 Blood Pressure [Left Arm] 127/65 123/79 117/72 O2 Sat by Pulse Oximetry 99 99 96 01/17/20 01:00 01/17/20 02:00 01/17/20 03:00 Temperature Pulse Rate [Brachial] 105 H 99 H 114 H Respiratory Rate 18 18 16 Blood Pressure [Left Arm] 125/77 122/77 134/74 O2 Sat by Pulse Oximetry 97 97 97 01/17/20 04:00 01/17/20 05:00 01/17/20 06:00 Temperature 98.6 F Pulse Rate [Brachial] 119 H 101 H 103 H Respiratory Rate 17 16 20 Blood Pressure [Left Arm] 139/75 137/84 132/68 O2 Sat by Pulse Oximetry 96 98 99 01/17/20 07:00 01/17/20 08:00 01/17/20 08:40 Temperature 97.9 F Pulse Rate [Brachial] 113 H 123 H Respiratory Rate 18 18 18 Blood Pressure [Left Arm] 128/65 124/75 O2 Sat by Pulse Oximetry 98 95 01/17/20 09:00 01/17/20 09:10 01/17/20 10:00 Temperature Pulse Rate [Brachial] 110 H 113 H Respiratory Rate 18 18 18 Blood Pressure [Left Arm] 107/67 117/75 O2 Sat by Pulse Oximetry 98 99 01/17/20 11:00 01/17/20 12:00 01/17/20 13:00 Temperature 98.4 F Pulse Rate [Brachial] 105 H 106 H 102 H Respiratory Rate 18 18 18 Blood Pressure [Left Arm] 118/77 114/74 125/73 O2 Sat by Pulse Oximetry 99 99 100 01/17/20 14:00 01/17/20 15:00 01/17/20 16:00 Temperature 98.6 F Pulse Rate [Brachial] 96 H 107 H 99 H Respiratory Rate 18 18 18 Blood Pressure [Left Arm] 109/77 106/68 108/62 O2 Sat by Pulse Oximetry 100 98 99 01/17/20 16:55 01/17/20 17:00 01/17/20 17:25 Temperature Pulse Rate [Brachial] 97 H Respiratory Rate 18 18 18 Blood Pressure [Left Arm] 104/61 O2 Sat by Pulse Oximetry 98 01/17/20 18:00 01/17/20 19:00 01/17/20 20:00 Temperature 98.2 F Pulse Rate [Brachial] 101 H 92 H 93 H Respiratory Rate 18 18 18 Blood Pressure [Left Arm] 105/69 124/68 106/71 O2 Sat by Pulse Oximetry 99 100 100 01/17/20 21:00 01/17/20 22:00 01/17/20 23:00 Temperature Pulse Rate [Brachial] 97 H 93 H 90 Respiratory Rate 18 18 18 Blood Pressure [Left Arm] 115/70 109/74 105/71 O2 Sat by Pulse Oximetry 98 99 99 01/17/20 23:38 01/18/20 00:00 01/18/20 00:08 Temperature 98.5 F Pulse Rate [Brachial] 97 H Respiratory Rate 18 18 20 Blood Pressure [Left Arm] 125/64 O2 Sat by Pulse Oximetry 99 01/18/20 01:00 01/18/20 02:00 01/18/20 03:00 Temperature Pulse Rate [Brachial] 87 83 80 Respiratory Rate 18 16 16 Blood Pressure [Left Arm] 108/65 105/60 103/62 O2 Sat by Pulse Oximetry 100 97 97 01/18/20 04:00 01/18/20 05:00 01/18/20 06:00 Temperature 98.1 F Pulse Rate [Brachial] 79 85 89 Respiratory Rate 15 16 18 Blood Pressure [Left Arm] 114/65 106/58 113/66 O2 Sat by Pulse Oximetry 97 99 98 01/18/20 07:00 01/18/20 08:00 01/18/20 08:30 Temperature 97.8 F Pulse Rate [Brachial] 81 88 Respiratory Rate 18 18 18 Blood Pressure [Left Arm] 98/62 108/69 O2 Sat by Pulse Oximetry 98 97 01/18/20 09:00 01/18/20 10:00 01/18/20 11:00 Temperature Pulse Rate [Brachial] 89 86 95 H Respiratory Rate 18 18 18 Blood Pressure [Left Arm] 105/74 106/64 107/58 O2 Sat by Pulse Oximetry 97 95 97 01/18/20 12:00 01/18/20 13:00 01/18/20 14:00 Temperature 98.0 F Pulse Rate [Brachial] 102 H 97 H 103 H Respiratory Rate 18 18 18 Blood Pressure [Left Arm] 126/75 106/66 116/61 O2 Sat by Pulse Oximetry 94 L 93 L 100 01/18/20 14:55 01/18/20 15:00 01/18/20 15:25 Temperature 98.3 F Pulse Rate [Brachial] 85 Respiratory Rate 18 18 18 Blood Pressure [Left Arm] 109/73 O2 Sat by Pulse Oximetry 99 01/18/20 16:00 01/18/20 17:00 01/18/20 17:30 Temperature Pulse Rate [Brachial] 88 91 H Respiratory Rate 18 18 18 Blood Pressure [Left Arm] 109/73 112/79 O2 Sat by Pulse Oximetry 100 99 01/18/20 18:00 01/18/20 19:00 01/18/20 20:00 Temperature 98.2 F Pulse Rate [Brachial] 100 H 96 H 91 H Respiratory Rate 18 16 18 Blood Pressure [Left Arm] 97/58 82/54 112/72 O2 Sat by Pulse Oximetry 100 97 93 L 01/18/20 21:00 01/18/20 21:03 01/18/20 21:33 Temperature Pulse Rate [Brachial] 93 H Respiratory Rate 17 18 18 Blood Pressure [Left Arm] 115/70 O2 Sat by Pulse Oximetry 100 01/18/20 22:00 01/18/20 23:00 01/19/20 00:00 Temperature 98.4 F Pulse Rate [Brachial] 101 H 92 H 90 Respiratory Rate 22 18 18 Blood Pressure [Left Arm] 124/78 108/79 121/76 O2 Sat by Pulse Oximetry 99 100 100 01/19/20 01:00 01/19/20 01:01 01/19/20 01:31 Temperature Pulse Rate [Brachial] 87 Respiratory Rate 20 18 18 Blood Pressure [Left Arm] 121/85 O2 Sat by Pulse Oximetry 100 01/19/20 02:00 01/19/20 03:00 01/19/20 04:00 Temperature 98.1 F Pulse Rate [Brachial] 91 H 81 77 Respiratory Rate 19 20 18 Blood Pressure [Left Arm] 102/66 107/73 106/71 O2 Sat by Pulse Oximetry 98 96 96 01/19/20 05:00 01/19/20 05:22 01/19/20 05:52 Temperature Pulse Rate [Brachial] 98 H Respiratory Rate 18 18 18 Blood Pressure [Left Arm] 116/78 O2 Sat by Pulse Oximetry 99 01/19/20 06:00 01/19/20 07:00 01/19/20 08:00 Temperature 98.1 F Pulse Rate [Brachial] 82 90 90 Respiratory Rate 20 20 18 Blood Pressure [Left Arm] 119/81 108/65 108/65 O2 Sat by Pulse Oximetry 100 100 100 01/19/20 09:00 01/19/20 09:35 Temperature Pulse Rate [Brachial] 89 Respiratory Rate 18 18 Blood Pressure [Left Arm] 121/79 O2 Sat by Pulse Oximetry 98 Labs: Laboratory Last Values WBC 8.1 X10^3/uL (3.6-10.0) 01/19/20 08:10 RBC 3.44 X10^6/uL (4.7-6.0) L 01/19/20 08:10 Hgb 10.4 g/dL (13.5-18.0) L 01/19/20 08:10 Hct 31.0 % (42.0-54.0) L 01/19/20 08:10 MCV 90.0 fL (80.0-100.0) 01/19/20 08:10 MCH 30.3 pg (27.0-34.0) 01/19/20 08:10 MCHC 33.7 g/dL (33.0-35.0) 01/19/20 08:10 RDW 13.1 % (11.6-16.5) 01/19/20 08:10 Plt Count 254 X10^3/uL (150.0-450.0) 01/19/20 08:10 Plt Count Comment Adequate (ADEQUATE) 01/16/20 11:05 MPV 8.0 fL (7.4-11.0) 01/19/20 08:10 Neut % (Auto) 62.1 % (42.0-75.0) 01/19/20 08:10 Lymph % (Auto) 28.7 % (21.0-51.0) 01/19/20 08:10 [place] % (Auto) 7.9 % (0.0-13.0) 01/19/20 08:10 Eos % (Auto) 1.1 % (0.9-2.9) 01/19/20 08:10 Baso % (Auto) 0.2 % (0.2-1.0) 01/19/20 08:10 Neut # (Auto) 5.0 x10^3/uL (2.2-4.8) H 01/19/20 08:10 Lymph # (Auto) 2.3 X10^3/uL (1.3-2.9) 01/19/20 08:10 [place] # (Auto) 0.6 x10^3/uL (0.3-0.8) 01/19/20 08:10 Eos # (Auto) 0.1 x10^3/uL (0.0-0.2) 01/19/20 08:10 Baso # (Auto) 0.0 X10^3/uL (0.0-0.1) 01/19/20 08:10 Absolute Nucleated RBC 0.4 /100WBC 01/19/20 08:10 Total Counted 100 01/16/20 11:05 Neutrophils % (Manual) 69 % (39-76) 01/16/20 11:05 Band Neutrophils % 10 % (0-10) 01/16/20 11:05 Lymphocytes % (Manual) 14 % (13-43) 01/16/20 11:05 Monocytes % (Manual) 5 % (4-9) 01/16/20 11:05 Eosinophils % (Manual) 2 % (0-6) 01/16/20 11:05 Plt Morphology Comment Normal (NORMAL) 01/16/20 11:05 RBC Morphology Normal (NORMAL) 01/16/20 11:05 Sample Site Rr 01/17/20 04:00 ABG pH 7.400 (7.35-7.45) 01/17/20 04:00 ABG pCO2 33.0 mmHg (35.0-45.0) L 01/17/20 04:00 ABG pO2 88.0 mmHg (80.0-100.0) 01/17/20 04:00 ABG HCO3 20.4 mmol/L (22-26) L 01/17/20 04:00 ABG O2 Saturation 97.0 % (90-100) 01/17/20 04:00 ABG Base Excess -3.6 mmol/L (-2.0-2.0) L 01/17/20 04:00 Vince Test Pos 01/17/20 04:00 A-a Gradient 20.0 mmHg 01/17/20 04:00 FiO2 21.0 01/17/20 04:00 Blood Gas Comments Greg well sw 01/17/20 04:00 Sodium 137 mmol/L (136-145) 01/19/20 08:10 Corrected Sodium 139 mmol/L (136-145) 01/19/20 08:10 Potassium 3.7 mmol/L (3.5-5.1) 01/19/20 08:10 Chloride 104 mmol/L (98-107) 01/19/20 08:10 Carbon Dioxide 24.6 mmol/L (21-32) 01/19/20 08:10 BUN 4 mg/dL (7-18) L 01/19/20 08:10 Creatinine 0.62 mg/dL (0.70-1.30) L 01/19/20 08:10 Est GFR (MDRD) Af Amer > 60 (>60) 01/19/20 08:10 Est GFR (MDRD) Non-Af > 60 (>60) 01/19/20 08:10 Glucose 191 mg/dL (65-99) H 01/19/20 08:10 POC Glucose (mg/dL) 185 mg/dL (65-99) H 01/19/20 08:42 Calcium 7.4 mg/dL (8.5-10.1) L 01/19/20 08:10 Corrected Calcium 8.9 mg/dL (8.5-10.1) 01/19/20 08:10 Magnesium 1.9 mg/dL (1.7-2.9) 01/18/20 05:20 Iron 27 ug/dL (50-175) L 01/17/20 05:47 Transferrin 195 mg/dL (202-364) L 01/17/20 05:47 Ferritin 188 ng/mL (26-388) 01/17/20 05:47 Total Bilirubin 0.30 mg/dL (0.2-1.0) 01/19/20 08:10 AST 21 Units/L (15-37) 01/19/20 08:10 ALT 17 Units/L (12-78) 01/19/20 08:10 Alkaline Phosphatase 83 Units/L (46-116) 01/19/20 08:10 Creatine Kinase 79 Units/L (39-308) 01/16/20 11:05 Creatine Kinase Cancelled 01/16/20 11:05 CK-MB (CK-2) < 1.0 ng/mL (0-4.0) 01/16/20 11:05 CK-MB (CK-2) Cancelled 01/16/20 11:05 CK/CKMB % Calc 1.3 % (<4) 01/16/20 11:05 CK/CKMB % Calc Cancelled 01/16/20 11:05 Troponin I < 0.02 ng/mL (0-1.5) 01/16/20 11:05 Troponin I Cancelled 01/16/20 11:05 Total Protein 5.0 g/dL (6.4-8.2) L 01/19/20 08:10 Albumin 2.1 g/dL (3.4-5.0) L 01/19/20 08:10 Globulin 2.9 g/dL (2.5-4.5) 01/19/20 08:10 Albumin/Globulin Ratio 0.7 Ratio (1.1-2.1) L 01/19/20 08:10 Lipase 1060 Units/L (73-393) H 01/17/20 05:47 Vitamin B12 472 pg/mL (193-986) 01/17/20 05:47 Folate 15.9 ng/mL (>8.6) 01/17/20 05:47 Specimen Type Clean catch urine 01/17/20 00:19 Urine Color Yellow (YELLOW) 01/17/20 00:19 Urine Appearance Clear (CLEAR) 01/17/20 00:19 Urine pH 5.0 (5.0 - 8.0) 01/17/20 00:19 Ur Specific [place] 1.015 (1.000-1.030) 01/17/20 00:19 Urine Protein 1+ (NEGATIVE) 01/17/20 00:19 Urine Glucose (UA) 3+ (NEGATIVE) 01/17/20 00:19 Urine Ketones 3+ (NEGATIVE) 01/17/20 00:19 Urine Occult Blood Negative (NEGATIVE) 01/17/20 00:19 Urine Nitrite Negative (NEGATIVE) 01/17/20 00:19 Urine Bilirubin Negative (NEGATIVE) 01/17/20 00:19 Urine Urobilinogen Normal (NORMAL) 01/17/20 00:19 Ur Leukocyte Esterase Negative (NEGATIVE) 01/17/20 00:19 Urine RBC None seen /HPF (0-3) 01/17/20 00:19 Urine WBC 0-2 /HPF (0-5) 01/17/20 00:19 Ur Squamous Epith Cells Negative /HPF (NEGATIVE) 01/17/20 00:19 Urine Bacteria Trace /HPF (NEGATIVE) 01/17/20 00:19 Ur Culture Indicated? No/not indicated 01/17/20 00:19 Acetone, Semi-Quant Moderate (NEGATIVE) H 01/17/20 05:47 Reason For Visit: DKA Discharge Date Discharge Date: 01/19/20 Discharge Diagnosis All Active Problems (Updated 01/18/20 @ 08:35 by Stephany Chu) Interstitial pancreatitis (Acute) Non compliance w medication regimen (Acute) Constipation (Acute) Hepatomegaly (Acute) Hematuria (Acute) Lumbago (Acute) Anemia (Acute) Hyperkalemia (Acute) Abdominal pain (Acute) Uncontrolled diabetes mellitus (Acute) Hyperosmolar non-ketotic state due to type 2 diabetes mellitus (Acute) DKA (diabetic ketoacidoses) (Acute) Anxiety (Chronic) Depression (Chronic) Diabetes mellitus (Chronic) Restless leg syndrome (Chronic) Insomnia (Chronic) Chronic pain (Chronic) DKA (diabetic ketoacidoses) (Acute) Abdominal pain (Acute) Type 1 diabetes mellitus (Acute) Dehydration (Acute) Acute renal failure (Acute) Hyponatremia (Acute) Acute hyperglycemia (Acute) Abdominal pain (Acute) Costovertebral angle pain (Acute) Plan of Treatment: Continue with present treatment and follow up plan. Pt is to keep follow up appointment as instructed and take medications as ordered. Discharge Medications Discharge Medications: No Known Drug Allergies Allergy (Verified 01/02/20 15:54) CONTINUE taking the following medications baclofen 10 mg PO TID 01/16/20 [History] lisinopril 5 mg PO DAILY 01/16/20 [History] New Prescriptions Levemir U-100 Insulin 15 unit SUBCUT DAILY 30 Days #1 bottle 01/19/20 [Rx] famotidine 20 mg PO HS 30 Days #30 tab 01/19/20 [Rx] ferrous gluconate 324 mg PO DAILYPC 30 Days #30 tab 01/19/20 [Rx] hydrocodone-acetaminophen 1 tab PO TID PRN 5 Days #15 tab MDD 3 tabs 01/19/20 [Rx] insulin aspart U-100 [Novolog U-100 Insulin aspart] 1 sliding scale dose SUBCUT USEASDIRECTD #10 ml 01/19/20 [Rx] pantoprazole 40 mg PO BID 30 Days #60 tab 01/19/20 [Rx] sucralfate 1 g PO TID 30 Days #90 tab 01/19/20 [Rx] Follow up and Referral Follow Up: 1 Week (PCP) Discharge Disposition Assessment: Stable no acute distress noted at time of discharge. Discharge Disposition: HOME Discharge Condition: STABLE
== END 2020-01-19 11:50 | disposition home or self-care (01) | DRG 637 ==
LOC: ER 10:09 → MED/SURG 11:47
PROVIDERS: ADMIT Internal Medicine; ATTEND Internal Medicine
DX: N17.8 Other acute kidney failure; E87.5 Hyperkalemia; K85.90 Acute pancreatitis without necrosis or infection, unspecified; K59.00 Constipation, unspecified; K86.1 Other chronic pancreatitis; Z91.14 Patient's other noncompliance with medication regimen; E86.0 Dehydration; E10.10 Type 1 diabetes mellitus with ketoacidosis without coma